=== PATIENT | female | born 1960 | race Caucasian/White ===

== ENCOUNTER → 2017-10-14 11:10 | Outpatient (CLI) | payer BC, SELFPAY ==
[2017-10-14 12:56] LABS: Vitamin B12 1260 pg/mL (211-911); Vitamin D,25 Hydroxy 29.1 ng/mL (19.95-100.01)
[2017-10-14 12:59] LABS: AST(SGOT) 27 U/L (15-37); Alanine Aminotransfer ALT/SGPT 46 U/L (13-56); Albumin, Serum 4.1 g/dL (3.2-5.0); Alkaline Phosphatase 87 U/L (45-117); Anion Gap 8 (5-15); BUN 13 mg/dL (7-18); BUN/Creat Ratio 18.4 RATIO (10-20); Calcium,Total 8.8 mg/dL (8.5-10.1); Chloride 103 mmol/L (98-107); Cholesterol 180 mg/dL (200); Creatinine, Serum 0.71 mg/dL (0.55-1.02); EST Glomerular Filtration Rate 90 mL/min (>60); Est Glom Filt Rate - Afr Amer 109 mL/min (>60); Glucose 90 mg/dL (74-106); High Density Lipoprotein 34 mg/dL; Potassium 3.5 mmol/L (3.5-5.1); Protein, Total 8.1 g/dL (6.4-8.2); Sodium Level 138 mmol/L (136-145); Thyroid Stim Hormone (TSH) 0.76 uIU/mL (0.358-3.74); Triglycerides 125 mg/dL; Very Low Density Lipoprotein 25 mg/dL (5-40)
== END ==
PROVIDERS: Family Provider Family Medicine; PCP Family Medicine; Visit Provider Family Medicine
DX: I10 Essential (primary) hypertension (principal); E55.9 Vitamin D deficiency, unspecified; E53.8 Deficiency of other specified B group vitamins
CPT/HCPCS: 36415; 80053; 80061; 82306; 82607; 84443

== ENCOUNTER → 2018-04-27 15:11 | Outpatient (CLI) | payer BC, SELFPAY ==
[2018-04-27 18:09] LABS: AST(SGOT) 55 U/L (15-37); Alanine Aminotransfer ALT/SGPT 99 U/L (13-56); Albumin, Serum 3.9 g/dL (3.2-5.0); Alkaline Phosphatase 97 U/L (45-117); Anion Gap 9 (5-15); BUN 10 mg/dL (7-18); BUN/Creat Ratio 13.9 RATIO (10-20); Calcium,Total 9.1 mg/dL (8.5-10.1); Chloride 103 mmol/L (98-107); Cholesterol 202 mg/dL (200); Creatinine, Serum 0.72 mg/dL (0.55-1.02); EST Glomerular Filtration Rate 88 mL/min (>60); Est Glom Filt Rate - Afr Amer 107 mL/min (>60); Globulin 3.9 g/dL (2.2-4.2); Glucose 89 mg/dL (74-106); High Density Lipoprotein 42 mg/dL; Potassium 3.8 mmol/L (3.5-5.1); Protein, Total 7.8 g/dL (6.4-8.2); Sodium Level 138 mmol/L (136-145); Thyroid Stim Hormone (TSH) 0.62 uIU/mL (0.358-3.74); Triglycerides 148 mg/dL; Very Low Density Lipoprotein 30 mg/dL (5-40)
[2018-04-28 12:06] LABS: Vitamin B12 898 pg/mL (211-911); Vitamin D,25 Hydroxy 28.4 ng/mL (29.95-100.01)
== END ==
PROVIDERS: Family Provider Family Medicine; PCP Family Medicine; Visit Provider Family Medicine
DX: I10 Essential (primary) hypertension (principal); E55.9 Vitamin D deficiency, unspecified; E53.8 Deficiency of other specified B group vitamins; F41.1 Generalized anxiety disorder
CPT/HCPCS: 36415; 80053; 80061; 82306; 82607; 84443

== ENCOUNTER → 2018-10-30 15:16 | Outpatient (CLI) | payer BC, SELFPAY ==
[2018-10-30 17:30] LABS: Hematocrit 40.2 % (37-47); Hemoglobin 12.7 g/dl (12.0-15.0); Mean Corp Hgb Conc 31.6 g/gl (32-36); Mean Corpuscular Hgb 27.7 pg (27.0-32.0); Mean Corpuscular Volume 87.8 fL (81-99); Mean Platelet Vol. 9.5 fl (6.2-12.0); Platelet Count 231 K/mm3 (150-450); RBC Distribution Width CV 13.6 % (11.6-14.6); RBC Distribution Width SD 43.3 fl (35.1-43.9); Red Blood Count 4.58 M/mm3 (4.2-5.4); White Blood Count 4.8 K/mm3 (4.4-11.0)
[2018-10-30 17:32] LABS: Scan Indicated on CBC? Y/N NO
[2018-10-30 17:41] LABS: Erythrocyte Sedimentation Rate 19 mm/hr (0-30)
[2018-10-30 17:49] LABS: Vitamin B12 820 pg/mL (211-911); Vitamin D,25 Hydroxy 21.4 ng/mL (29.95-100.01)
[2018-10-30 17:51] LABS: Anion Gap 6 (5-15); BUN 11 mg/dL (7-18); BUN/Creat Ratio 16.7 RATIO (10-20); Chloride 105 mmol/L (98-107); Creatinine, Serum 0.66 mg/dL (0.55-1.02); EST Glomerular Filtration Rate 98 mL/min (>60); Est Glom Filt Rate - Afr Amer 118 mL/min (>60); Glucose 84 mg/dL (74-106); Potassium 3.9 mmol/L (3.5-5.1); Sodium Level 139 mmol/L (136-145); Thyroid Stim Hormone (TSH) 0.55 uIU/mL (0.358-3.74)
[2018-11-01 16:09] LABS: Endomysial Antibody IgA Negative (Negative)
[2018-11-01 16:39] LABS: Deamidated Gliadin IgA 5 units (0-19); Deamidated Gliadin IgG 4 units (0-19); Immunoglobulin A 235 mg/dL (87-352); t-Transglutaminase IgA <2 U/mL (0-3)
== END ==
PROVIDERS: Family Provider Family Medicine; PCP Family Medicine; Visit Provider Family Medicine
DX: I10 Essential (primary) hypertension (principal); E55.9 Vitamin D deficiency, unspecified; E53.8 Deficiency of other specified B group vitamins; K58.9 Irritable bowel syndrome, unspecified
CPT/HCPCS: 36415; 80048; 82306; 82607; 82784; 83516; 84443; 85027; 85652; 86255

== ENCOUNTER → 2019-07-04 | Outpatient (CLI) | payer BC, SELFPAY ==
[2019-07-04 17:49] LABS: Absolute Lymphocyte Count 1.72 X10^3/uL (0.83-4.51); Absolute Neutrophil Count 2.9 X10^3/uL (2.0-7.7); Basophil# 0.02 X10^3/uL; Basophil% 0.4 % (0-1); Eosinophil# 0.11 X10^3/uL; Eosinophils% 2.1 % (0-5); Hematocrit 40.4 % (37-47); Hemoglobin 12.9 g/dL (12.0-15.0); Lymphocyte # 1.72 X10^3/ul (4.0); Lymphocyte % 32.8 % (19-41); Mean Corp Hgb Conc 31.9 g/dL (32-36); Mean Corpuscular Volume 87.8 fL (81-99); Mean Platelet Vol. 9.2 fl (6.2-12.0); Monocyte# 0.45 X10^3/uL; Monocyte% 8.6 % (0-10); NRBC Flagged by Analyzer 0 % (0-5); Neutrophil # 2.93 X10^3/uL (2.7-7.7); Neutrophil % 55.9 % (47-70); Platelet Count 254 K/mm3 (150-450); RBC Distribution Width SD 41.2 fl (35.1-43.9); White Blood Count 5.2 K/mm3 (4.4-11.0)
[2019-07-04 18:02] LABS: Erythrocyte Sedimentation Rate 14 mm/hr (0-30)
[2019-07-04 18:22] LABS: Vitamin B12 625 pg/mL (211-911); Vitamin D,25 Hydroxy 25.9 ng/mL (29.95-100.01)
[2019-07-04 18:39] LABS: AST(SGOT) 40 U/L (15-37); Alanine Aminotransfer ALT/SGPT 81 U/L (13-56); Albumin, Serum 3.8 g/dL (3.2-5.0); Alkaline Phosphatase 99 U/L (45-117); Anion Gap 7 (5-15); BUN 10 mg/dL (7-18); BUN/Creat Ratio 13.7 RATIO (10-20); CRP < 2.90 mg/L (0.0-3.0); Chloride 104 mmol/L (98-107); Creatinine, Serum 0.73 mg/dL (0.55-1.02); EST Glomerular Filtration Rate 87 mL/min (>60); Est Glom Filt Rate - Afr Amer 105 mL/min (>60); Ferritin 63 ng/mL (8-252); Glucose 90 mg/dL (74-106); Iron 72 ug/dL (50-170); Potassium 3.8 mmol/L (3.5-5.1); Protein, Total 7.8 g/dL (6.4-8.2); Rheumatoid Factor < 10.0 IU/mL (<15); Sodium Level 141 mmol/L (136-145); Thyroid Stim Hormone (TSH) 0.78 uIU/mL (0.358-3.74)
[2019-07-06 12:28] LABS: ANTINUCLEAR ANTIBODIES DIRECT Negative (Negative)
== END | disposition home or self-care (01) ==
LOC: MFPLAB 16:55
PROVIDERS: Family Provider Family Medicine; PCP Family Medicine; Referring Provider Family Medicine; Visit Provider Family Medicine
DX: M25.50 Pain in unspecified joint (principal); R53.83 Other fatigue; E53.8 Deficiency of other specified B group vitamins; E55.9 Vitamin D deficiency, unspecified
CPT/HCPCS: 36415; 80053; 82306; 82607; 82728; 83540; 84443; 85025; 85652; 86038; 86140; 86431

== ENCOUNTER → 2020-01-18 16:44 | Outpatient (CLI) | payer BC, SELFPAY ==
[2020-01-18 17:50] LABS: Absolute Neutrophil Count 2.7 X10^3/uL (2.0-7.7); Basophil# 0.02 X10^3/uL; Basophil% 0.4 % (0-1); Eosinophil# 0.07 X10^3/uL; Eosinophils% 1.4 % (0-5); Hemoglobin 12.5 g/dL (12.0-15.0); Lymphocyte % 35.8 % (19-41); Mean Corp Hgb Conc 31.3 g/dL (32-36); Mean Corpuscular Hgb 27.7 pg (27.0-32.0); Mean Corpuscular Volume 88.5 fL (81-99); Mean Platelet Vol. 9.5 fl (6.2-12.0); Monocyte# 0.39 X10^3/uL; Monocyte% 7.8 % (0-10); NRBC Flagged by Analyzer 0 % (0-5); Neutrophil # 2.74 X10^3/uL (2.7-7.7); Neutrophil % 54.4 % (47-70); Platelet Count 266 K/mm3 (150-450); RBC Distribution Width SD 42.5 fl (35.1-43.9); Red Blood Count 4.52 M/mm3 (4.2-5.4)
[2020-01-18 18:18] LABS: AST(SGOT) 36 U/L (15-37); Alanine Aminotransfer ALT/SGPT 74 U/L (13-56); Alkaline Phosphatase 94 U/L (45-117); Bilirubin, Direct 0.09 mg/dL (0.00-0.30)
== END ==
PROVIDERS: PCP Family Medicine; Referring Provider Family Medicine; Visit Provider Family Medicine
DX: R10.11 Right upper quadrant pain (principal)
CPT/HCPCS: 36415; 80076; 85025

== ENCOUNTER → 2020-01-23 09:58 | Outpatient (CLI) | payer BC, SELFPAY ==
--- NOTE | 2020-01-23 10:03 | US_ITS ---
STUDY: ABDOMINAL ULTRASOUND - RIGHT UPPER QUADRANT REASON FOR VISIT: Female, 59 years old RUQ PAIN X SEVERAL MONTHS W/ NAUSEA TECHNIQUE: Ultrasound evaluation of the right upper quadrant was performed with real-time and static wheeler-scale imaging. TECHNICAL QUALITY: Adequate. COMPARISON: Comparison is made with prior study dated October 29, 2015. FINDINGS: Liver: The liver measures 14.7 cm. There is increased echogenicity consistent with fatty infiltration. The bile ducts are within normal limits. There is hepatic color flow. The direction of portal flow is hepatopetal. There is no demonstrated mass lesion. Gallbladder: Normal distended gallbladder. The gallbladder wall measures 2.5 mm. There is a negative sonographic Chase''s sign. There is no pericholecystic fluid. There are no gallstones. Common Bile Duct (C.B.D.): The common bile duct measures 5.1 mm. Pancreas: Normal size of the head, body and tail of the pancreas. There is increased echogenicity of the pancreas. There is no demonstrated pancreatic mass or cyst. Right Kidney: Normal size of the right kidney. The right kidney measures 10.3 cm x 5.5 cm x 4.9 cm. Normal renal cortex. The right cortex measures 1.5 cm. There is no demonstrated renal mass or cyst. There is no right hydronephrosis. US/Abdomen Limited IMPRESSION: Fatty infiltration of the liver. Electronically Signed: Shadi Crandall, at 15:13 EDT , Service support ,
== END ==
PROVIDERS: PCP Family Medicine; Visit Provider Family Medicine
DX: R10.11 Right upper quadrant pain (principal)
CPT/HCPCS: 76705

== ENCOUNTER 2021-07-18 11:38 | Emergency (ER) | payer BC, SELFPAY ==
[2021-07-18 11:39] VITALS: BP 163/88; PULSE 87; RESP 18; TEMP 36.6; O2SAT 94; BMI 33.5
--- NOTE | 2021-07-18 12:06 | RAD_ITS ---
STUDY: X-RAY - LEFT FOOT CLINICAL: Female, 61 years old. Pain/swelling TECHNIQUE: 3 view(s) of the foot. COMPARISON: None. FINDINGS: There is a plantar calcaneal spur. Normal visualized subtalar, talonavicular, calcaneocuboid, tarsal and tarsometatarsal articulations. Normal metatarsi. Normal metatarsophalangeal joint of the great toe. Normal tibial and fibular sesamoid bones. Normal interphalangeal joint of the great toe. Normal phalanges of the great toe. Normal second through fifth metatarsophalangeal joints. Normal interphalangeal joints and phalanges of the lesser toes. The soft tissue structures are unremarkable. RAD/Foot min 3 Views IMPRESSION: Calcaneal spur. No demonstrated acute osseous changes. Electronically Signed: Amaury Ricardo, at 12:25 EST Tel , Service support ,
--- NOTE | 2021-07-18 13:11 | ED.VIS.LOWEX ---
HPI History of Present Illness Chief Complaint: Lower Extremity Injury Informant: patient Narrative Narrative: This patient's had left foot pain for about 10 days. It started in the right great toe. However it seems to be also on the side of the foot and the lateral aspect of the left ankle. There is some redness at 2 spots. But is not spreading up the leg. She has no fevers chills nausea or vomiting. No systemic symptoms. No change in diet that she knows of. She does not have a history of gout although her does. She states the pain is worse with touching it or walking. Nothing specifically makes it better. [facility] Medical History Arthritis Bone tumor HTN (hypertension) Seasonal allergies Home Medications lisinopril-hydrochlorothiazide 1 tablet PO DAILY 02/10/14 [History Last Taken Unknown] escitalopram oxalate 20 mg tablet 20 mg PO DAILY tablet 11/16/20 [History Last Taken Unknown] oxycodone-acetaminophen [Percocet] 1 tab PO Q6H PRN 3 Days #10 tab 07/18/21 [Rx Last Taken Unknown] prednisone 60 mg PO DAILY #15 tab 07/18/21 [Rx Last Taken Unknown] Allergy/AdvReac Type Severity Reaction Status Date / Time No Known Allergies Allergy Verified 07/18/21 11:40 Surgical History Hx of melanoma excision Social History Smoking Status: Never smoker alcohol intake: never ROS ROS ED Constitutional Constitutional ED: Denies chills, fever(s) or sweats ENT ENT ED: Denies rhinorrhea or sore throat Cardiovascular Cardiovascular: Denies palpitations Respiratory/Chest Respiratory/Chest: Denies cough Gastrointestinal Gastrointestinal: Denies nausea or vomiting Musculoskeletal Musculoskeletal: Reports arthralgias Integumentary Denies abscess, Abrasions or rash Neurologic Neurologic: Denies paresthesias or weakness Endocrine Endocrinology: Denies polydipsia or polyuria Hematologic/Lymphatic Hematologic/Lymphatic: Denies easy bleeding or easy bruising Allergic/Immunologic Allergic/Immunologic ED: Denies mouth swelling or urticaria EXAM Physical Exam Const Vital Signs: 07/18/21 11:39 Temperature 97.8 F Temperature Source Temporal Pulse Rate 87 Respiratory Rate 18 Blood Pressure 163/88 H Blood Pressure Mean 113 Pulse Ox 94 Oxygen Delivery Method Room Air Positive well nourished and well developed General Appearance ED: well developed and NAD HEENT normocephalic and atraumatic Resp normal respiratory effort and clear to auscultation bilaterally Cardio regular rate GI non-tender Palpation: soft Extremity Extremity Narrative: There is some erythema by the first MTP of the left foot. This area is sore to move but the other 4 toes or not. There is a spot of erythema on the lateral aspect of the foot. There is a little bit of swelling but no erythema over the lateral aspect of the ankle but not medially. No posterior ankle swelling. No calcaneus tenderness. No real pain with motion of the ankle. Neuro Sensorium / Orientation: alert Psych mental status grossly normal Skin Rashes: no rashes MDM MDM MDM Narrative Medical decision making narrative: X-ray shows arthritic changes but no sign of acute process. Patient's had 10 days of symptoms with no spread beyond the foot. There is no sign of cellulitis. There is no fevers chills nausea or vomiting. This is consistent with gout. We will treat as such. If she develops fevers chills spreading erythema etc. she should return. We will try a dose of colchicine here. We will write for some Percocet as well as steroids. Radiography Diagnostic Testing: Clinical Impression(s) from Imaging Studies Foot X-Ray 07/18/21 12:06 IMPRESSION: Calcaneal spur. No demonstrated acute osseous changes. Electronically Signed: Amaury Ricardo, at 12:25 EST Tel , Service support , Discharge Plan Triage Chief Complaint: Lower Extremity Injury ED Provider: Gigi Jenkins Dx/Rx/DC Orders Clinical Impression: Gout attack Instructions: ED Gout, ED Gout Diet Prescriptions: New oxycodone-acetaminophen [Percocet] 5-325 mg tablet 1 tab PO Q6H PRN (Reason: pain) 3 Days Qty: 10 RF: 0 prednisone 20 MG tablet 60 mg PO DAILY Qty: 15 RF: 0 No Action escitalopram oxalate 20 mg tablet 20 mg PO DAILY RF: 0 lisinopril-hydrochlorothiazide 1 TABLET tablet 1 tablet PO DAILY RF: 0 Primary Care Provider: Deep Flynn Referrals: Deep Flynn MD [Primary Care Provider] - 3-5 Days if not improving Disposition Disposition: Home, Self Care
[2021-07-18 15:03] VITALS: BP 108/77; PULSE 72; RESP 16; O2SAT 98
[2021-07-18] MEDS: Colchicine 0.6 MG TABLET 1.2 MG PO (15:03)
== END 2021-07-18 15:24 | disposition home or self-care (01) ==
PROVIDERS: Emergency Provider Emergency Medicine; PCP Family Medicine
DX: M10.9 Gout, unspecified (principal); I10 Essential (primary) hypertension; Z79.899 Other long term (current) drug therapy
CPT/HCPCS: 73630; 99283

== ENCOUNTER → 2021-07-23 13:59 | Outpatient (CLI) | payer BC, SELFPAY ==
[2021-07-23 17:56] LABS: Anion Gap 7 (5-15); BUN 19 mg/dL (7-18); BUN/Creat Ratio 23.9 RATIO (10-20); Calcium,Total 9.4 mg/dL (8.5-10.1); Chloride 100 mmol/L (98-107); Cholesterol 205 mg/dL (200); EST Glomerular Filtration Rate 78 mL/min (>60); Est Glom Filt Rate - Afr Amer 94 mL/min (>60); Glucose 75 mg/dL (74-106); High Density Lipoprotein 41 mg/dL; Potassium 3.3 mmol/L (3.5-5.1); Sodium Level 138 mmol/L (136-145); Triglycerides 188 mg/dL; Uric Acid 7.7 mg/dL (2.6-6.0); Very Low Density Lipoprotein 38 mg/dL (5-40)
== END ==
PROVIDERS: PCP Family Medicine; Referring Provider Family Medicine; Visit Provider Family Medicine
DX: I10 Essential (primary) hypertension (principal); M10.9 Gout, unspecified
CPT/HCPCS: 36415; 80048; 80061; 84550

== ENCOUNTER → 2021-08-19 | Outpatient (CLI) | payer BC, SELFPAY | END | disposition home or self-care (01) | LOC: LABSPEC 17:27 | PROVIDERS: PCP Family Medicine; Visit Provider Nurse Practitioner Family | DX: J06.9 Acute upper respiratory infection, unspecified (principal) | CPT/HCPCS: 87633; 87635; U0005; U0003 ==

== ENCOUNTER → 2022-07-22 | Outpatient (CLI) | payer SELFPAY ==
--- NOTE | 2022-07-22 14:22 | RAD_ITS ---
STUDY: X-RAY - RIGHT FOOT CLINICAL: Female, 62 years old. PAIN TECHNIQUE: 3 view(s) of the foot. COMPARISON: None. FINDINGS: Normal talus,, and tarsal bones. Small plantar calcaneal spur. Normal visualized subtalar, talonavicular, calcaneocuboid, tarsal and tarsometatarsal articulations. Normal metatarsi. Normal metatarsophalangeal joint of the great toe. Normal tibial and fibular sesamoid bones. Normal interphalangeal joint of the great toe. Normal phalanges of the great toe. Normal second through fifth metatarsophalangeal joints. Normal interphalangeal joints and phalanges of the lesser toes. The soft tissue structures are unremarkable. RAD/Foot min 3 Views IMPRESSION: No evidence for acute fracture or other significant bony pathology.. Electronically Signed: Tyree Horowitz MD at 20:02 EST ,
[2022-07-22 15:40] LABS: Absolute Lymphocyte Count 1.71 X10^3/uL (0.83-4.51); Absolute Neutrophil Count 3.5 X10^3/uL (2.0-7.7); Basophil# 0.02 X10^3/uL; Basophil% 0.4 % (0-1); Eosinophils% 1.8 % (0-5); Hematocrit 41.6 % (37-47); Hemoglobin 13.2 g/dL (12.0-15.0); Lymphocyte # 1.71 X10^3/ul (0.83-4.51); Lymphocyte % 30.1 % (19-41); Mean Corp Hgb Conc 31.7 g/dL (32-36); Mean Corpuscular Hgb 27.8 pg (27.0-32.0); Mean Corpuscular Volume 87.6 fL (81-99); Mean Platelet Vol. 9.3 fl (6.2-12.0); Monocyte# 0.37 X10^3/uL; Monocyte% 6.5 % (0-10); NRBC Flagged by Analyzer 0.4 % (0-5); Neutrophil # 3.45 X10^3/uL (2.7-7.7); Neutrophil % 60.7 % (47-70); Platelet Count 270 K/mm3 (150-450); RBC Distribution Width CV 13.2 % (11.6-14.6); RBC Distribution Width SD 42.4 fl (35.1-43.9); Red Blood Count 4.75 M/mm3 (4.2-5.4); White Blood Count 5.7 K/mm3 (4.4-11.0)
[2022-07-22 15:53] LABS: Erythrocyte Sedimentation Rate 28 mm/hr (0-30)
[2022-07-22 16:17] LABS: Vitamin D,25 Hydroxy 21.9 ng/mL
[2022-07-22 16:27] LABS: Anion Gap 8 (5-15); BUN 10 mg/dL (7-18); BUN/Creat Ratio 13.2 RATIO (10-20); Calcium,Total 9.1 mg/dL (8.5-10.1); Chloride 103 mmol/L (98-107); Creatinine, Serum 0.76 mg/dL (0.55-1.02); EST Glomerular Filtration Rate 82 mL/min (>60); Est Glom Filt Rate - Afr Amer 100 mL/min (>60); Glucose 89 mg/dL (74-106); Potassium 4.3 mmol/L (3.5-5.1); Sodium Level 141 mmol/L (136-145); Thyroid Stim Hormone (TSH) 0.79 uIU/mL (0.358-3.74); Uric Acid 7.1 mg/dL (2.6-6.0)
== END | disposition home or self-care (01) ==
PROVIDERS: PCP Family Medicine; Referring Provider Family Medicine; Visit Provider Family Medicine
DX: E55.9 Vitamin D deficiency, unspecified (principal); R40.0 Somnolence; M79.671 Pain in right foot
CPT/HCPCS: 36415; 73630; 80048; 82306; 84443; 84550; 85025; 85652

== ENCOUNTER → 2023-02-14 | Outpatient (CLI) | payer OTHER, SELFPAY ==
[2023-02-14 18:10] LABS: Color, Urine Yellow (Yellow); Glucose, Dipstick Normal (Normal); Ketone-Dipstick Negative (Negative); Leukocyte Esterase-Dipstick 500 /ul (Negative); Nitrite-Dipstick Negative (Negative); Occult Blood-Urine 50 /ul (Negative); Protein-Dipstick 15 mg/dl (Negative); Urine Bilirubin Dipstick Negative (Negative); Urine Clarity Sl. Cloudy (Clear); Urine Urobilinogen Normal (Normal)
[2023-02-14 18:30] LABS: White Blood Cells 25-50 SEEN /hpf (0-5)
[2023-02-14 18:31] LABS: Bacteria 1+ /hpf (None Seen); Mucous, Urine RARE /hpf (<or=2+); Red Blood Cells-Urine 0-5 SEEN /hpf (0-5); Squamous Epithelial Cells - UA 0-5 SEEN /hpf (5-10)
[2023-02-14 18:52] LABS: Anion Gap 5 (5-15); BUN 9 mg/dL (7-18); BUN/Creat Ratio 11.8 RATIO (10-20); Calcium,Total 9.1 mg/dL (8.5-10.1); Chloride 107 mmol/L (98-107); Cholesterol 192 mg/dL (200); Creatinine, Serum 0.76 mg/dL (0.55-1.02); EST Glomerular Filtration Rate 81 mL/min (>60); Est Glom Filt Rate - Afr Amer 99 mL/min (>60); Glucose 88 mg/dL (74-106); High Density Lipoprotein 40 mg/dL; Sodium Level 141 mmol/L (136-145); Triglycerides 121 mg/dL; Uric Acid 8.5 mg/dL (2.6-6.0); Very Low Density Lipoprotein 24 mg/dL (5-40)
== END | disposition home or self-care (01) ==
LOC: MFPLAB 16:04
PROVIDERS: PCP Family Medicine; Visit Provider Family Medicine
DX: I10 Essential (primary) hypertension (principal); E55.9 Vitamin D deficiency, unspecified
CPT/HCPCS: 36415; 80048; 80061; 81001; 82306; 84550

== ENCOUNTER → 2023-09-29 | Outpatient (CLI) | payer OTHER, SELFPAY ==
--- NOTE | 2023-09-29 12:45 | US_ITS ---
INDICATION: Postmenopausal bleeding EXAMINATION: Ultrasound US Pelvis Non OB Complete With Transvaginal Imaging TECHNIQUE: Transabdominal and transvaginal pelvic ultrasound was performed. Grayscale, spectral waveform, and color flow Doppler evaluation of the adnexa. COMPARISON: No relevant prior comparison study available FINDINGS: UTERUS: Anteverted. The uterus measures 9.1 x 5.3 x 4.2 cm. There is a mass in the posterior wall of the uterus measuring about 2.2 x 2.2 x 2.2 cm consistent with small uterine fibroid. The endometrial stripe measures 18 mm in AP diameter which is abnormally thickened for postmenopausal patient. Nabothian cyst seen in the cervix. RIGHT OVARY: The right ovary is not visualized. LEFT OVARY: Left ovary measures 2.6 x 1.2 x 0.8 cm. Non-enlarged, normal echogenicity. There is normal arterial inflow and venous outflow present in the left ovary. FREE FLUID: None. US/Pelvic w/ Transvaginal IMPRESSION: 1. Abnormally thickened heterogeneous endometrium for postmenopausal bleeding patient. Endometrial abnormality cannot be excluded. INTEGRATION ARCHITECT consult is recommended. 2. Nonvisualization of the right ovary. 3. Small nabothian cyst in the cervix. Electronically Signed: Amaury Ricardo MD at 15:07 EST ,
== END | disposition home or self-care (01) ==
LOC: US 12:40
PROVIDERS: PCP Family Medicine; Referring Provider Family Medicine; Visit Provider Family Medicine
DX: N93.8 Other specified abnormal uterine and vaginal bleeding (principal)
CPT/HCPCS: 76830; 76856

== ENCOUNTER → 2023-10-31 | Outpatient (CLI) | payer OTHER, SELFPAY ==
[2023-11-03 13:08] LABS: HPV APTIMA, High Risk Negative (Negative)
== END | disposition home or self-care (01) ==
LOC: LABSPEC 15:41
PROVIDERS: PCP Family Medicine; Referring Provider Obstetrics & Gynecology; Visit Provider Obstetrics & Gynecology
DX: Z12.4 Encounter for screening for malignant neoplasm of cervix (principal)
CPT/HCPCS: 87624; 88175; G0145

== ENCOUNTER → 2023-11-09 | Outpatient (CLI) | payer OTHER, SELFPAY ==
--- NOTE | 2023-11-09 13:39 | BI_ITS ---
MAMMOGRAPHY - BILATERAL SCREENING REASON FOR EXAM: Female, 63 years old. Routine annual screening examination. PERTINENT HISTORY: Non-contributory. TECHNIQUE: Digital bilateral breast meera (3D mammographic acquisition) in the CC and MLO projections. 2-D mediolateral oblique (MLO) and craniocaudad (CC) views of both breasts were obtained. CAD: Full Field Digital Mammography with Computer Added Detection was performed. COMPARISON: None. Baseline examination. FINDINGS: Breast Composition: There are scattered areas of fibroglandular density. There are no dominant masses or suspicious calcifications. No other significant abnormalities are identified. BI/SCRN MAMM (CAD)W/MEERA BILAT IMPRESSION: Negative screening mammogram. Yearly followup mammogram recommended. (A) ASSESSMENT CATEGORY: BIRADS Category 1: Negative. A letter regarding these results will be sent to the patient by the facility within 30 days. Approximately 10% of breast cancers are not detected by mammography. A normal mammogram should not delay biopsy of a clinically suspicious abnormality. [id number] Electronically Signed: Shadi Crandall MD at 14:46 EDT ,
== END | disposition home or self-care (01) ==
LOC: OPBI 13:39
PROVIDERS: PCP Family Medicine; Referring Provider Obstetrics & Gynecology; Visit Provider Obstetrics & Gynecology
DX: Z12.31 Encounter for screening mammogram for malignant neoplasm of breast (principal)
CPT/HCPCS: 77063; 77067

== ENCOUNTER → 2023-12-20 | Outpatient (CLI) | payer OTHER, SELFPAY ==
[2023-12-20 14:02] LABS: Vitamin D,25 Hydroxy 28.5 ng/mL
[2023-12-20 14:07] LABS: ALB/GLOB Ratio 1.1 RATIO (0.9-2.4); AST(SGOT) 40 U/L (15-37); Alanine Aminotransfer ALT/SGPT 69 U/L (13-56); Alkaline Phosphatase 74 U/L (45-117); Anion Gap 4 (5-15); BUN 9 mg/dL (7-18); BUN/Creat Ratio 11.7 RATIO (10-20); Chloride 106 mmol/L (98-107); Cholesterol 206 mg/dL (200); Creatinine, Serum 0.77 mg/dL (0.55-1.02); EST Glomerular Filtration Rate 80 mL/min (>60); Est Glom Filt Rate - Afr Amer 97 mL/min (>60); Globulin 3.7 g/dL (2.2-4.2); Glucose 99 mg/dL (74-106); High Density Lipoprotein 41 mg/dL; Potassium 3.9 mmol/L (3.5-5.1); Protein, Total 7.7 g/dL (6.4-8.2); Sodium Level 139 mmol/L (136-145); Thyroid Stim Hormone (TSH) 1.28 uIU/mL (0.358-3.74); Triglycerides 134 mg/dL; Uric Acid 8.4 mg/dL (2.6-6.0); Very Low Density Lipoprotein 27 mg/dL (5-40)
== END | disposition home or self-care (01) ==
LOC: LAB 12:27
PROVIDERS: PCP Family Medicine; Referring Provider Family Medicine; Visit Provider Family Medicine
DX: M10.9 Gout, unspecified (principal); E55.9 Vitamin D deficiency, unspecified; I10 Essential (primary) hypertension; Z13.29 Encounter for screening for other suspected endocrine disorder
CPT/HCPCS: 36415; 80053; 80061; 82306; 84443; 84550

== ENCOUNTER 2024-01-03 08:09 | Day surgery (SDC) | payer OTHER, SELFPAY ==
[2023-12-20 13:35] LABS: Absolute Lymphocyte Count 2.34 X10^3/uL (0.83-4.51); Absolute Neutrophil Count 2.4 X10^3/uL (2.0-7.7); Basophil# 0.02 X10^3/uL; Basophil% 0.4 % (0-1); Eosinophil# 0.08 X10^3/uL; Eosinophils% 1.5 % (0-5); Hematocrit 40.8 % (37-47); Hemoglobin 13.4 g/dL (12.0-15.0); Lymphocyte # 2.34 X10^3/ul (0.83-4.51); Lymphocyte % 45.1 % (19-41); Mean Corp Hgb Conc 32.8 g/dL (32-36); Mean Corpuscular Volume 85.4 fL (81-99); Mean Platelet Vol. 9.6 fl (6.2-12.0); Monocyte# 0.33 X10^3/uL; Monocyte% 6.4 % (0-10); NRBC Flagged by Analyzer 0 % (0-5); Neutrophil # 2.41 X10^3/uL (2.7-7.7); Neutrophil % 46.4 % (47-70); Platelet Count 243 K/mm3 (150-450); RBC Distribution Width CV 13.2 % (11.6-14.6); RBC Distribution Width SD 41.1 fl (35.1-43.9); Red Blood Count 4.78 M/mm3 (4.2-5.4); White Blood Count 5.2 K/mm3 (4.4-11.0)
[2024-01-03] VITALS (10 sets, daily range): BP systolic 118–158; BP diastolic 68–92; PULSE 68–74; RESP 16; TEMP 36.1–37.2; O2SAT 91–95; BMI 35.1
--- NOTE | 2024-01-03 | EMB_PTH ---
PATIENT: SHEBA GAO LOC: [facility] [place] U#:[id number] AGE/SX: 63/F ROOM: RE01/03/[address]: Dr. Shanique Rachel DO : 1960 BED: DIS: 01/03/2024 SPEC #: [id number] RECD: 01/03/24 13:15 STATUS: YRN REMarion #: [id number] TIFFANIE: 01/03/24 00:[address]: Shanique Rachel DEPT: SURGICAL PATHOLOGY RECD BY: [place] ENTERED: 01/03/24 13:15 SP TYPE: ENDOM BX/C OTHR DR: Dr. Ladarius Flynn MD Tissues: Endometrium, NOS Procedures: Surgery Specimen Level IV HEADER OPERATION: Hysteroscopy, D&C PRE-OP DIAGNOSIS: Thickened endometrium, postmenopausal bleeding TISSUE SUBMITTED: Endometrial Curettings MICROSCOPIC DIAGNOSIS Endometrial curettings: Endometrial adenocarcinoma, endometroid type with focal squamous differentiation, FIGO grade II. See comment. / 01/04/2024 COMMENT Immunohistochemistry ([id number]) for microsatellite instability will be performed and results will be reported separately. Case has been reviewed in consultation with Dr. Bradford who concurs with the above diagnosis. IDC:AM MICROSCOPIC DESCRIPTION Slides are reviewed. GROSS DESCRIPTION Received in fixative is one container labeled with the patient's name and designated Endometrial curettings. The specimen consists of multiple fragments of hemorrhagic soft tissue in aggregate 7.5 x 3.0 x 1.0cm. The entire specimen is submitted in eight cassettes. / 01/03/24 TC:0 CPT:52570
[2024-01-03] MEDS: Lactated Ringers 1,000 ML 15 ML IV (08:54)
--- NOTE | 2024-01-03 09:34 | PCM.HP.BLA ---
History and Physical Date of Admission: 01/03/24 Intake Vital Signs 10/30/2413:04 12/19/2410:30 12/19/2410:32 Height 5 ft 3 in 5 ft 3 in 5 ft 3 in Weight: 199 lb 4 oz BMI 35.3 BP 157/84 H Intake Visit Reasons: d&c Cardiac Cath Technician Required: No Is patient in pain?: No Allergies No Known Allergies Allergy (Verified 12/20/23 11:30) Medications escitalopram oxalate 20 mg tablet 20 mg PO DAILY 11/16/20 [History Confirmed 12/20/23] cholecalciferol (vitamin D3) 50 mcg (2,000 unit) capsule 50 mcg PO DAILY 10/31/23 [History Confirmed 12/20/23] lisinopril 40 mg tablet 40 mg PO DAILY 10/31/23 [History Confirmed 12/20/23] Is last menstrual period known: No Post menopausal: No Patient : No : No PFSH Medical History Arthritis Basal cell carcinoma Bone tumor Depression with anxiety HTN (hypertension) Melanoma Seasonal allergies Squamous cell carcinoma Vitamin D deficiency Surgical History H/O squamous cell carcinoma excision Hx of melanoma excision S/P laparotomy S/P tubal ligation Social History Smoking Status: Never smoker alcohol intake: never substance use type: does not use caffeine: Yes what type of physical activity do you participate in: none seatbelt use: always do you feel safe at home: Yes additional social history: - [facility] d&c Details: SHEBA GAO is a 63 year old who presents for postmenopausal bleeding and pre-op exam. She has been menopausal for 10 years and for the last year she has had on and off spotting red and brown blood. She admits that she has not had a pap or pelvic exam for several years and also has not gone for a mammogram in several years either. Ultrasound shows the following: FINDINGS: UTERUS: Anteverted. The uterus measures 9.1 x 5.3 x 4.2 cm. There is a mass in the posterior wall of the uterus measuring about 2.2 x 2.2 x 2.2 cm consistent with small uterine fibroid. The endometrial stripe measures 18 mm in AP diameter which is abnormally thickened for postmenopausal patient. Nabothian cyst seen in the cervix. RIGHT OVARY: The right ovary is not visualized. LEFT OVARY: Left ovary measures 2.6 x 1.2 x 0.8 cm. Non-enlarged, normal echogenicity. There is normal arterial inflow and venous outflow present in the left ovary. FREE FLUID: None. History 5 Elective abortions Hx Para 3 Spontaneous abortions Hx # Term Pregnancies Ectopic pregnancies Hx # Pregnancies Multiple births # of living children Past Pregnancies Del. Date Name GA/Weeks Outcome Route Bth Weight Infant Gen Labor Lgth Anesthesia Del [facility] Provider FOB Unknown Lisset Unknown Hsilpa Unknown Kaitline ROS Const ROS Unobtainable: All systems reviewed & are unremarkable except as noted in H Resp Resp: Reports system reviewed and no additional complaints, except as documented; Denies cough GI GI: Reports as per HPI Psych Psych: Reports system reviewed and no additional complaints, except as documented Exam Const General: cooperative, healthy appearing, comfortable and no acute distress Resp Effort & Inspection: normal respiratory effort Skin General: no rashes or lesions noted Psych Appearance: grossly normal Speech and Movement: speech and movement normal Coding Level of Care Code Off vis,est,level 4 Diagnoses Thickened endometrium R93.89 Postmenopausal bleeding N95.0 Assessment and Plan Assessment and Plan (1) Thickened endometrium: Status: Acute (2) Postmenopausal bleeding: Status: Acute Plan: After discussing the patient's diagnosis and treatment plan options, patient wishes to proceed with surgical management. I have discussed with the patient the risks, benefits, and alternatives of the procedure which include but are not limited to risks of anesthesia, bleeding, infection, possible damage to bowel, bladder, or surrounding vasculature which could lead to additional surgery to evaluate any complications. Patient agrees to procedure and wishes to proceed. ACOG/uptodate references given for additional information regarding procedure. plan for hysteroscopy dilation and curettage Orders: Orders CBC W/Diff, Automated Today N95.0 - Postmenopausal bleeding, R93.89 - Abnormal findings on diagnostic imaging of other specified body structures
--- NOTE | 2024-01-03 09:41 | PCM.DC ---
Discharge Instructions Diet Discharge Diet: No restrictions Activity Discharge Activity: Return to Normal Activity, May Shower and May Take a Tub Bath (after 1 week) May resume sexual activity in: 1-2 weeks Weight Bearing Status: Weight bearing as tolerated Lifting Restrictions: none Dressing / Incision Call your doctor if you observe: Fever of 101 or Higher, Using more than 1 pad per hour, Shortness of breath and Uncontrolled pain Follow Up Care Please Follow Up With: Shanique Rachel DO When: Call [phone] to schedule appointment. Test Results: Test results from this visit will be discussed in further detail at your follow-up appointment, if applicable. Discharge Plan Admission Primary Reason for Your Visit: dilation and curettage Attending Provider: Shanique Rachel Primary Care Provider: Ladarius Flynn Instructions Print Language: Mongolian Discharge Orders/Prescriptions Prescriptions: New naproxen 500 mg tablet 500 mg PO BID PRN (Reason: pain) Qty: 20 0RF Continued escitalopram oxalate 20 mg tablet 20 mg PO QHS lisinopril 40 mg tablet 40 mg PO QHS cholecalciferol (vitamin D3) 50 mcg (2,000 unit) capsule 50 mcg PO DAILY Referrals / Follow Up: Ladarius Flynn MD [Primary Care Provider] - Disposition Disposition (needs filled in before D/C Order can be placed): Home, Self Care
--- NOTE | 2024-01-03 09:45 | IMM_PTH ---
PATIENT: SHEBA GAO LOC: [facility] [place] U#:[id number] AGE/SX: 63/F ROOM: RE01/03/[address]: Dr. Shanique Rachel DO : 1960 BED: DIS: 01/03/2024 SPEC #: [id number] RECD: 01/04/24 11:43 STATUS: YRN REQ #: [id number] TIFFANIE: 01/03/24 09:[address]: Shanique Rachel DEPT: IMMUNOHISTOCHEMISTRY RECD BY: Gilbert Tavarez ENTERED: 01/04/24 11:44 SP TYPE: IMMUNO OTHR DR: Dr. Ladarius Flynn MD Tissues: Endometrium, NOS Procedures: MSH2 (add) MLH-1 (add) MSH6 (add) Anti-PMS2 (add) KI-67 (add) P53 (add) HER-2-FLORIDALMA (initial) PHYSICIAN [facility] INSTIT[facility] [address] [address] SPECIMEN INFORMATION: Tissue Source: Endometrial curettings Clinical Info: Thickened endometrium, postmenopausal bleeding Specimen Number: [id number] CPT code: 96046,[id number] METHODOLOGY: Deparaffinized sections of prefer/formalin-fixed tissue or PAP/DQ stained slides are incubated with monoclonal/polyclonal antibodies/oligonucleotide probes. Localization is made via biotin free immunoperoxidase method. Appropriate controls are performed and reacted as expected. Results on target cell population are indicated in the following table: RESULTS: ANTIBODY / CLONE RESULT Block 7 Her-2neu (CB11) negative (1+, focal) MLH1 (M1) positive MSH2 (25D12) positive MSH6 (44) positive PMS2 ([id number]) positive P53 (DO-7) positive, focal (wild type pattern) Ki-67 (30-9) positive, high These tests were developed and their performance characteristics determined by [facility]. They may not have been cleared or approved by the U.S. Food and Drug Administration. The FDA has determined that such clearance or approval is not necessary. The above immunohistochemical/dualISH markers are ordered and reviewed by the Pathologist. INTERPRETATION: Endometrial curettings: Endometrial adenocarcinoma. Negative (no loss of mismatch protein; no microsatellite instability detected). CAMERON/ 01/05/2024
[2024-01-03] MEDS: Lidocaine 1% (20 ml mdv) 20 ML Vial (10:04)
--- NOTE | 2024-01-03 10:14 | OP.PCM_ITS ---
Problems Associated Problem List Diagnoses (1) Thickened endometrium: (2) Postmenopausal bleeding: Report of Operation Date of Procedure: 01/03/24 Pre-Operative Diagnosis: thickened endometrium and postmenopausal bleeding Post-Operative Diagnosis: thickened endometrium and postmenopausal bleeding Surgery/Procedure Performed:: hysteroscopy dilation and curettage Description of Surgical Findings:: thick tissue in endometrium Surgeon: Shanique Rachel corporate technical recruiter: None Type of Anesthesia: Local and MAC Specimen's removed: endometrial curetting's Drains: none Estimated Blood Loss (mL): 20cc Fluids Replaced: 500cc Description of Procedure: Patient was prepped and draped in a normal sterile fashion under MAC anesthesia. A weighted speculum was placed in the vagina and the anterior lip of the cervix was grasped with a single-tooth tenaculum. A paracervical block was placed with 1% lidocaine. Cervix was progressively dilated to allow passage of a 5 mm hyste roscope. The lining was fully visualized and noted to have thick irregular appearing tissue and a possible polyp . Uterine sounded to 7 cm. Curettage was performed and a large amount of tissue was removed and sent to pathology. All instruments were removed from the vagina and excellent hemostasis was noted. Patient was awoken and taken to recovery in stable condition. Procedure Start Time: 10:04 Procedure Stop Time: 10:12 Complications none Admit VTE Documentation VTE Present on Admission: No VTE Mechan Device Prophylaxis: SCD's VTE Pharm Prophylaxis ordered?: No Multi Select Codes Urinary/Genital Urinary/Genital CPT Codes: 89638 Hysteroscopy,EMC, Polypectomy
== END 2024-01-03 11:55 | disposition home or self-care (01) ==
LOC: SDC 08:15 → AC 08:25
PROVIDERS: PCP Family Medicine; Referring Provider Obstetrics & Gynecology; Visit Provider Obstetrics & Gynecology
PROC: 0UDB8ZZ Extraction of Endometrium, Via Natural or Artificial Opening Endoscopic (ICD-10-PCS; CPT 58558; principal; 2024-01-03 09:35)
DX: C54.1 Malignant neoplasm of endometrium (principal); N95.0 Postmenopausal bleeding; Z78.0 Asymptomatic menopausal state; I10 Essential (primary) hypertension; F41.8 Other specified anxiety disorders; Z79.899 Other long term (current) drug therapy
CPT/HCPCS: 58558; 00952; 36415; 85025; 86850; 86900; 86901; 88305; 88341; 88342; 93005; J7120; J2405

== ENCOUNTER → 2024-05-21 | Outpatient (CLI) | payer OTHER, SELFPAY ==
[2024-05-21 18:00] LABS: Vitamin B12 333 pg/mL (211-911); Vitamin D,25 Hydroxy 30.4 ng/mL
[2024-05-21 18:07] LABS: AST(SGOT) 41 U/L (15-37); Alanine Aminotransfer ALT/SGPT 61 U/L (13-56); Albumin, Serum 3.9 g/dL (3.2-5.0); Alkaline Phosphatase 97 U/L (45-117); Anion Gap 6 (5-15); BUN 8 mg/dL (7-18); BUN/Creat Ratio 11.3 RATIO (10-20); Calcium,Total 9.3 mg/dL (8.5-10.1); Chloride 106 mmol/L (98-107); EST Glomerular Filtration Rate 89 mL/min (>60); Est Glom Filt Rate - Afr Amer 107 mL/min (>60); Globulin 3.8 g/dL (2.2-4.2); Glucose 91 mg/dL (74-106); Potassium 3.8 mmol/L (3.5-5.1); Protein, Total 7.7 g/dL (6.4-8.2); Sodium Level 139 mmol/L (136-145); Thyroid Stim Hormone (TSH) 0.461 uIU/mL (0.358-3.740); Uric Acid 7.4 mg/dL (2.6-6.0)
[2024-05-21 18:27] LABS: Absolute Lymphocyte Count 2.22 X10^3/uL (0.83-4.51); Absolute Neutrophil Count 2.8 X10^3/uL (2.0-7.7); Basophil# 0.02 X10^3/uL; Basophil% 0.4 % (0-1); Eosinophil# 0.09 X10^3/uL; Eosinophils% 1.6 % (0-5); Hematocrit 38.5 % (37-47); Hemoglobin 12.5 g/dL (12.0-15.0); Lymphocyte # 2.22 X10^3/ul (0.83-4.51); Lymphocyte % 40.6 % (19-41); Mean Corp Hgb Conc 32.5 g/dL (32-36); Mean Corpuscular Hgb 27.5 pg (27.0-32.0); Mean Corpuscular Volume 84.8 fL (81-99); Mean Platelet Vol. 9.5 fl (6.2-12.0); Monocyte# 0.36 X10^3/uL; Monocyte% 6.6 % (0-10); NRBC Flagged by Analyzer 0 % (0-5); Neutrophil # 2.77 X10^3/uL (2.7-7.7); Neutrophil % 50.6 % (47-70); Platelet Count 229 K/mm3 (150-450); RBC Distribution Width SD 39.8 fl (35.1-43.9); Red Blood Count 4.54 M/mm3 (4.2-5.4); White Blood Count 5.5 K/mm3 (4.4-11.0)
[2024-05-21 18:33] LABS: Erythrocyte Sedimentation Rate 14 mm/hr (0-30)
== END | disposition home or self-care (01) ==
LOC: MFPLAB 16:35
PROVIDERS: PCP Family Medicine; Visit Provider Family Medicine
DX: R53.83 Other fatigue (principal); M10.9 Gout, unspecified; E53.8 Deficiency of other specified B group vitamins
CPT/HCPCS: 36415; 80053; 82306; 82607; 84443; 84550; 85025; 85652

== ENCOUNTER → 2024-10-16 | Outpatient (CLI) | payer OTHER, SELFPAY ==
[2024-10-17 11:22] LABS: Vitamin B12 431 pg/mL (180-914); Vitamin D,25 Hydroxy 21.6 ng/mL (30-100)
== END | disposition home or self-care (01) ==
PROVIDERS: PCP Family Medicine; Referring Provider Family Medicine; Visit Provider Family Medicine
DX: E53.8 Deficiency of other specified B group vitamins (principal); E55.9 Vitamin D deficiency, unspecified
CPT/HCPCS: 36415; 82306; 82607

== ENCOUNTER 2024-10-23 16:52 | Emergency (ER) | payer OTHER, SELFPAY ==
[2024-10-23 16:53] VITALS: BP 184/89; PULSE 91; RESP 15; TEMP 36.4; O2SAT 98; BMI 36.1
--- NOTE | 2024-10-23 16:59 | EKG12_ITS ---
Test Reason : NECK/CHEST PAIN Blood Pressure : */* mmHG Vent. Rate : 80 BPM Atrial Rate : 80 BPM P-R Int : 162 ms QRS Dur : 72 ms QT Int : 368 ms P-R-T Axes : 19 -5 18 degrees QTcB Int : 424 ms Normal sinus rhythm Nonspecific ST and T wave abnormality Abnormal ECG Confirmed by Rayray Olsen ([id number]), managing editor HARRISON PENN ([id number]) on 10/25/2024 6:56:35 AM Referred By: Confirmed By: Rayray Olsen
--- NOTE | 2024-10-23 17:12 | RAD_ITS ---
PROCEDURE: WRIST MIN 3 VIEWS REASON FOR EXAM: Swelling TECHNIQUE: Three views of the left wrist were obtained. COMPARISON: None. FINDINGS: No visible fracture. No suspicious bone lesion. Normal alignment. Soft tissues are unremarkable. RAD/Wrist min 3 Views IMPRESSION: No acute fracture or dislocation. Reading Location: [facility]
--- NOTE | 2024-10-23 17:15 | RAD_ITS ---
PROCEDURE: CHEST PA AND LATERAL REASON FOR EXAM: Chest pain TECHNIQUE: PA and lateral views of the chest. COMPARISON: None. FINDINGS: Heart: Unremarkable. Mediastinum: Unremarkable. Lungs/pleura: Hypoinflation with vascular crowding. No convincing focal consolidation. No effusion or visible pneumothorax. Likely calcified granuloma on the left. Bones: Multilevel spondylosis. Lines and support devices: None. RAD/Chest PA and Lateral IMPRESSION: 1. No visible acute cardiopulmonary findings. 2. Additional description as above. Reading Location: [id number]
[2024-10-23 17:22] LABS: Absolute Neutrophil Count 7.8 X10^3/uL (2.0-7.7); Basophil# 0.03 X10^3/uL; Basophil% 0.3 % (0-1); Eosinophil# 0.02 X10^3/uL; Eosinophils% 0.2 % (0-5); Hematocrit 39.7 % (37-47); Hemoglobin 13.1 g/dL (12.0-15.0); Lymphocyte % 14.1 % (19-41); Mean Corpuscular Hgb 28.2 pg (27.0-32.0); Mean Corpuscular Volume 85.6 fL (81-99); Mean Platelet Vol. 9.3 fl (6.2-12.0); Monocyte# 0.62 X10^3/uL; Monocyte% 6.3 % (0-10); NRBC Flagged by Analyzer 0 % (0-5); Neutrophil # 7.79 X10^3/uL (2.7-7.7); Neutrophil % 78.7 % (47-70); Platelet Count 244 K/mm3 (150-450); RBC Distribution Width CV 13.3 % (11.6-14.6); RBC Distribution Width SD 41.5 fl (35.1-43.9); Red Blood Count 4.64 M/mm3 (4.2-5.4); White Blood Count 9.9 K/mm3 (4.4-11.0)
[2024-10-23 17:51] LABS: Troponin T High Sensitivity < 6 ng/L (<=14)
--- NOTE | 2024-10-23 18:09 | EX.ED.DYSGE1 ---
HPI History of Present Illness Chief Complaint: General Illness Informant: patient Onset/Context/Timing Onset: Yesterday Context: Gradual Onset Timing: Continuous Quality: Burning Location: Upper abdomen Worsened by: Nothing Relieved by: Tums helped somewhat Narrative Narrative: Patient presents with abdominal pain that began yesterday. Patient states it is gradually gotten worse. Patient describes it as burning. Patient states it is mainly over the upper abdomen. Patient states that she has been taking Tums which has been helping somewhat. Patient states nothing makes it worse. Patient also complains of pain in her left wrist and left hand which has been getting worse over the last 5 days. Patient denies any redness over the area. Patient denies any fevers or chills. Patient admits to some nausea but denies any vomiting. Patient also admits to some urinary frequency but denies any dysuria or hematuria. PFSH PFS Medical History Loss of hearing Wears glasses Post-menopausal Back pain Heartburn Non-smoker Leg cramps History of edema History of stress test Squamous cell carcinoma Basal cell carcinoma Melanoma Vitamin D deficiency Depression with anxiety Bone tumor Arthritis HTN (hypertension) Seasonal allergies Home Medications ?Medication ?Instructions ?Recorded ?Last Taken ?Type escitalopram oxalate 20 mg tablet 20 mg PO QHS 11/16/20 Unknown History lisinopril 40 mg tablet 40 mg PO QHS 10/31/23 Unknown History naproxen 500 mg tablet 500 mg PO BID PRN pain #20 tabs 01/03/24 Unknown Rx amlodipine 5 mg tablet 5 mg PO DAILY 10/23/24 Unknown History cholecalciferol (vitamin D3) 125 125 mcg PO DAILY 10/23/24 Unknown History mcg (5,000 unit) tablet (Vitamin D3) omeprazole 20 mg capsule,delayed 20 mg PO DAILY #30 CAPSULES 10/23/24 Unknown Rx release Allergy/AdvReac Type Severity Reaction Status Date / Time bupropion AdvReac Mild OTHER Verified 10/23/24 16:53 Surgical History S/P D&C (status post dilation and curettage) H/O squamous cell carcinoma excision S/P laparotomy S/P tubal ligation Hx of melanoma excision Social History Smoking Status: Never smoker alcohol intake: never substance use type: does not use caffeine: Yes what type of physical activity do you participate in: none seatbelt use: always do you feel safe at home: Yes additional social history: - Gene ROS ROS ED Constitutional Constitutional ED: Denies chills or fever(s) Eyes Eyes: Denies blurry vision or change in vision ENT ENT ED: Denies rhinorrhea or sore throat Cardiovascular Cardiovascular: Reports chest pain; Denies palpitations Respiratory/Chest Respiratory/Chest: Denies cough or dyspnea Gastrointestinal Gastrointestinal: Reports abdominal pain and nausea; Denies vomiting Genitourinary Genitourinary ED: Reports urinary frequency; Denies dysuria or hematuria Musculoskeletal Musculoskeletal: Reports neck pain; Denies back pain Integumentary Denies abscess or rash Neurologic Neurologic: Reports headache(s); Denies weakness Allergic/Immunologic Allergic/Immunologic ED: Denies mouth swelling or urticaria EXAM Physical Exam Const Vital Signs: 10/23/24 16:53 10/23/24 18:11 10/23/24 18:41 Temperature 97.6 F L Temperature Source Temporal Pulse Rate 91 Respiratory Rate 15 Respiratory Effort Normal Respiratory Pattern Normal Blood Pressure 184/89 H Blood Pressure Mean 120 Pulse Ox 98 Oxygen Delivery Method Room Air Room Air 10/23/24 19:09 10/23/24 21:00 Temperature Temperature Source Pulse Rate 66 72 Respiratory Rate 12 13 Respiratory Effort Respiratory Pattern Blood Pressure 139/68 H 157/80 H Blood Pressure Mean 91 105 Pulse Ox 95 95 Oxygen Delivery Method Room Air Room Air Positive well nourished and well developed General Appearance ED: well developed and NAD HEENT Reports moist mucous membranes Neck supple and no JVD Resp normal respiratory effort and clear to auscultation bilaterally Cardio regular rate and regular rhythm GI non-distended Palpation: soft and tender epigastric; Negative for guarding or rebound tenderness present Neuro oriented x3, CN's II-XII intact bilaterally and no sensory deficits noted Sensorium / Orientation: alert Motor Exam: strength 5/5 throughout Psych mental status grossly normal MDM MDM MDM Narrative Medical decision making narrative: Differential diagnosis includes gastroesophageal reflux disease, gastritis, pancreatitis, cardiac dysrhythmia, cardiac ischemia, colitis, urinary tract infection, gout, arthritis, and electrolyte abnormality. EKG will be obtained to assess for cardiac dysrhythmia and cardiac ischemia. Chest x-ray will be obtained to assess for pneumonia and bronchitis. CBC will be obtained to assess for leukocytosis and anemia. Basic metabolic profile will be obtained to assess for electrolyte abnormality renal function. Urinalysis will be obtained to assess for urinary tract infection and hematuria. High-sensitivity troponin will be obtained to assess for cardiac ischemia. 2-hour repeat high-sensitivity troponin will be obtained to assess for ongoing cardiac ischemia. X-ray of the left wrist will be obtained to assess for fracture and loose body. Sed rate and CRP will be obtained to assess for inflammatory markers. Lab Data Attestation: I reviewed the patient's lab results. Lab results narrative: CBC was reviewed and was within normal limits. Comprehensive metabolic profile was reviewed. AST was slightly elevated at 45 and ALT was slightly elevated at 68. Sed rate was reviewed and was normal at 24. CRP was reviewed and was slightly elevated at 5.23. Initial high-sensitivity troponin was reviewed and was less than 6. 2-hour repeat high-sensitivity troponin was reviewed and was less than 6. Urinalysis was reviewed and was within normal limits. Lipase was reviewed and was normal at 30. Labs: Laboratory Results - last 24 hr 10/23/24 10/23/24 10/23/24 17:10 19:00 19:19 WBC 9.9 RBC 4.64 Hgb 13.1 Hct 39.7 MCV 85.6 MCH 28.2 MCHC 33.0 RDW Std Deviation 41.5 RDW Coeff of Avinash 13.3 Plt Count 244 MPV 9.3 Immature Gran % (Auto) 0.400 Neut % (Auto) 78.7 H Lymph % (Auto) 14.1 L [place] % (Auto) 6.3 Eos % (Auto) 0.2 Baso % (Auto) 0.3 Absolute Neuts (auto) 7.8 H Absolute Lymphs (auto) 1.40 Nucleated RBC % 0 ESR 24 Sodium 138 Potassium 3.9 Chloride 101 Carbon Dioxide 23.6 Anion Gap 14 BUN 8 Creatinine 0.76 Estim Creat Clear Calc 80.84 Est GFR (MDRD) Non-Af 88 BUN/Creatinine Ratio 10.2 Glucose 118 H Calcium 9.7 Total Bilirubin 0.41 Direct Bilirubin 0.18 AST 45 H ALT 68 H Alkaline Phosphatase 92 Troponin T High Sens < 6 Troponin T Hi Sens 2 Hr < 6 Troponin T Hi Sens 2Hr [place] UNABLE TO CALCULATE C-React Prot Ext Range 5.23 H Total Protein 7.8 Albumin 4.6 Globulin 3.2 Lipase 30 Urine Color Straw Urine Clarity Clear Urine pH 7.0 Ur Specific [place] 1.010 Urine Protein Negative Urine Glucose (UA) Normal Urine Ketones Negative Urine Occult Blood Negative Urine Nitrite Negative Urine Bilirubin Negative Urine Urobilinogen Normal Ur Leukocyte Esterase Negative Urine RBC 0-5 SEEN Urine WBC 0-5 SEEN Ur Squamous Epith Cells 0-5 SEEN Urine Bacteria 0 SEEN Urine Mucus 0 SEEN Radiography Chest X-Ray - ED: 2 View, Read by ED Physician, Read by Radiologist and No Acute Disease Diagnostic Testing: Clinical Impression(s) from Imaging Studies Wrist X-Ray 10/23/24 17:12 IMPRESSION: No acute fracture or dislocation. Reading [facility] Chest X-Ray 10/23/24 17:15 IMPRESSION: 1. No visible acute cardiopulmonary findings. 2. Additional description as above. Reading Location: [facility] X-rays of the left wrist were obtained. There are 3 views. On my independent interpretation, there is no acute fracture. There is no loose body noted. Radiologist also interpreted the x-rays and agrees. PA and lateral chest x-ray was obtained. There are 2 views. On my independent interpretation, lung west are clear. There is normal cardiac silhouette. Bony thorax is normal. There is no acute process noted. Radiologist also interpreted the x-ray and agrees. EKG Initial EKG: Attestation: I personally reviewed and interpreted this EKG as follows: Interpretation: Sinus Rhythm (80) and Non-Specific ST Changes Comments: EKG was obtained. On my independent interpretation, it showed a normal sinus rhythm with a rate of 80. GA interval, QRS interval, and QTc intervals were all normal. [place] was normal. There are nonspecific ST-T wave changes. Prior EKG tracings: available for review Prior: Unchanged (12/30/2023) Treatment and Re-Evaluation :: Patient was advised of her findings. Patient was advised that this could be gastroesophageal reflux disease or gastritis. Patient was given a prescription for omeprazole. Patient was instructed to take Tylenol or ibuprofen as needed for pain in her wrist. Patient was instructed to ice and elevate the left wrist. Patient was given a wrist splint. Patient was instructed to follow-up with her primary care physician in 5 to 7 days. Patient understood and was agreeable with the plan. All questions were answered. Discharge Plan Triage Chief Complaint: General Illness ED Provider: Nito Doe Dx/Rx/DC Orders Clinical Impression: Epigastric abdominal pain, Left wrist pain, HTN (hypertension) Instructions: ED Arthralgia, ED Epigastric Pain Uncertain Cause Prescriptions: New omeprazole 20 mg capsule,delayed release(DR/EC) 20 mg PO DAILY Qty: 30 0RF No Action escitalopram oxalate 20 mg tablet 20 mg PO QHS lisinopril 40 mg tablet 40 mg PO QHS naproxen 500 mg tablet 500 mg PO BID PRN (Reason: pain) Qty: 20 0RF amlodipine 5 mg tablet 5 mg PO DAILY cholecalciferol (vitamin D3) [Vitamin D3] 125 mcg (5,000 unit) tablet 125 mcg PO DAILY Primary Care Provider: Ladarius Flynn Referrals: Ladarius Flynn MD [Primary Care Provider] - Print Language: Ma[place]
[2024-10-23] MEDS: 0.9% Normal Saline (1000mL) 1,000 ML 1000 ML IV (18:40)
[2024-10-23 19:09] VITALS: BP 139/68; PULSE 66; RESP 12; O2SAT 95
[2024-10-23 19:09] LABS: Bacteria 0 SEEN /hpf (None Seen); Mucous, Urine 0 SEEN /hpf (<or=2+)
[2024-10-23 19:10] LABS: Color, Urine Straw (Yellow); Glucose, Dipstick Normal (Normal); Ketone-Dipstick Negative (Negative); Leukocyte Esterase-Dipstick Negative /ul (Negative); Nitrite-Dipstick Negative (Negative); Occult Blood-Urine Negative /ul (Negative); Protein-Dipstick Negative (Negative); Urine Bilirubin Dipstick Negative (Negative); Urine Clarity Clear (Clear); Urine Urobilinogen Normal (Normal)
[2024-10-23 19:13] LABS: Anion Gap 14 (5-15); BUN 8 mg/dL (4-19); BUN/Creat Ratio 10.2 RATIO (10-20); Calcium,Total 9.7 mg/dL (7.6-11.0); Carbon Dioxide 23.6 mmol/L (21.0-32.0); Chloride 101 mmol/L (98-108); Creatinine, Serum 0.76 mg/dL (0.70-1.20); EST Glomerular Filtration Rate 88 (>60); Estimated Creatinine Clearance 80.84 ml/min (50-250); Glucose 118 mg/dL (70-99); Potassium 3.9 mmol/L (3.3-5.1); Sodium Level 138 mmol/L (133-145)
[2024-10-23 19:23] LABS: Red Blood Cells-Urine 0-5 SEEN /hpf (0-5); Squamous Epithelial Cells - UA 0-5 SEEN /hpf (5-10); White Blood Cells 0-5 SEEN /hpf (0-5)
[2024-10-23 19:28] LABS: AST(SGOT) 45 U/L (<=31); Alanine Aminotransfer ALT/SGPT 68 U/L (<=34); Albumin, Serum 4.6 g/dL (3.4-4.8); Alkaline Phosphatase 92 U/L (35-104); Bilirubin, Direct 0.18 mg/dL (0.00-0.30); Globulin 3.2 g/dL (2.2-4.2); Lipase 30 U/L (13-75); Protein, Total 7.8 g/dL (5.9-8.4); Total Bilirubin 0.41 mg/dL (0.00-1.30)
[2024-10-23 19:54] LABS: TROPONIN VARIANCE 2 HR UNABLE TO CALCULATE; Troponin T High Sens 2 HR < 6 ng/L (<=14)
[2024-10-23 21:00] VITALS: BP 157/80; PULSE 72; RESP 13; O2SAT 95
[2024-10-23 21:03] LABS: Erythrocyte Sedimentation Rate 24 mm/hr (0-30)
[2024-10-23 21:19] LABS: CRP 5.23 mg/L (0.0-3.0)
[2024-10-23 22:42] VITALS: BP 151/87; PULSE 74; RESP 18; TEMP 36.6; O2SAT 99
== END 2024-10-23 22:44 | disposition home or self-care (01) ==
LOC: ED 19:37
PROVIDERS: Emergency Provider Emergency Medicine; PCP Family Medicine; Visit Provider Emergency Medicine
DX: R10.13 Epigastric pain (principal); R11.2 Nausea with vomiting, unspecified; I10 Essential (primary) hypertension; M79.642 Pain in left hand; M25.532 Pain in left wrist; F41.8 Other specified anxiety disorders; E55.9 Vitamin D deficiency, unspecified; Z79.899 Other long term (current) drug therapy
CPT/HCPCS: 71046; 73110; 80048; 80076; 81001; 83690; 84484; 85025; 85652; 86140; 93005; 96360; 96361; 99285; A4216

== ENCOUNTER → 2024-11-01 | Outpatient (CLI) | payer OTHER, SELFPAY ==
--- NOTE | 2024-11-01 15:51 | RAD_ITS ---
PROCEDURE: ABD INC DECUB AND/OR ERECT REASON FOR EXAM: PAIN TECHNIQUE: Upright and supine views of the abdomen, 2 upright and 2 supine nodes to include the entire abdomen and pelvis, 4 total images COMPARISON: None FINDINGS: Visualized lung bases appear clear. No free air identified. Paucity of small bowel gas. Nonspecific bowel gas pattern. Some gas and stool is seen within the colon. Spondylosis. RAD/Abd Inc Decub and/or Erect IMPRESSION: Paucity of small bowel gas. Nonspecific bowel gas pattern. Some gas and stool i s seen within the colon.. Reading Location: [id number]
== END | disposition home or self-care (01) ==
PROVIDERS: PCP Family Medicine; Referring Provider Family Medicine; Visit Provider Family Medicine
DX: R10.9 Unspecified abdominal pain (principal)
CPT/HCPCS: 74019

== ENCOUNTER 2025-01-24 06:07 | Emergency (ER) | payer OTHER, SELFPAY ==
[2025-01-24 06:07] VITALS: BP 167/84; BP 173/82; PULSE 76; RESP 18; TEMP 36.9; O2SAT 96
--- NOTE | 2025-01-24 06:37 | CT_ITS ---
PROCEDURE: SPINE LUMBAR WITHOUT CONTRAST 01/24/2025 REASON FOR EXAM: PAIN / TRAUMA TECHNIQUE: Lumbar spine CT without contrast. Coronal and Sagittal reconstruction series were provided. One or more dose reduction techniques were used (e.g., Automated exposure control, adjustment of the mA and/or kV according to patient size, use of iterative reconstruction technique COMPARISON: None. RADIATION DOSE SUMMARY: CTDlvol: 22.63 mGy DLP: 889.56 mGycm FINDINGS: There are no compression fractures or subluxations. There is maintenance of the normal lumbar lordosis. There is minimal levoscoliosis centered at the L 4 level. There is degenerative disc disease, L4-5 and L5-S1 with narrowing of the disc spaces and marginal osteophytes most severe at the L5-S1 level were there is almost complete loss of the intervertebral disc space. There is multilevel facet arthropathy. There is degenerative grade 1 anterolisthesis of L4 on L5. There is degenerative grade 1 retrolisthesis of L5 on S1. There is calcific vascular disease of the abdominal aorta. There is moderate sigmoid diverticulosis without diverticulitis evident. CT/Spine Lumbar without Contrast IMPRESSION: 1. No evidence of acute injury. 2. Degenerative disc disease L4-5 and L5-S1. 3. Spondylosis with degenerative grade 1 anterolisthesis of L4 on L5 and degen erative retrolisthesis of L5 on S1. 4. Other findings as noted. Reading Location: [id number]
--- OUTSIDE RECORDS SUMMARY | 2025-01-24 06:41 | XMS RPT_ITS | CCD ---
Author Organization [facility] Care Team Providers Care Rod Straightener Name Role Phone Dr. Deep Flynn Primary Care Provider Dr. Deep Flynn Referring Provider Dr. Shanique Rachel Attending Provider Dr. Haydee Flynn Primary Care Provider [phone] Dr. Haydee Flynn Referring Provider Reinaldo Funes MD Unavailable Haydee Flynn Primary Care Provider [phone] REINALDO FUNES Admitting Unavailable REINALDO FUNES Attending Unavailable REINALDO FUNES Referring Unavailable [place] Unavailable CIERA CHARLES Attending Unavailable [place], [place] Primary Care Unavailable REINALDO FUNES Attending Unavailable JUAN ANTONIO LOPEZ Referring Unavaila ble [facility], [place]X Primary Care Unavailable [facility], [place] Primary Care Unavailable CIERA CHARLES Attending Unavailable REINALDO FUNES Referring Unavailable [place], [place] Primary Care Unavailable REINALDO FUNES Attending Unavailable JUAN ANTONIO LOPEZ Referring Unavaila ble [facility], [place]X Primary Care Unavailable [facility], [place]X Primary Care Unavailable CIERA CHARLES Attending Unavailable [place], [place] Primary Care Unavailable Shanique Rachel Attending Unavailabl e Shanique Rachel Referring Unavailabl e Rina, [place] Primary Care Unavailable Shanique Rachel Attending Unavailabl e Haydee Flynn Referring Unavailable [place], [place] Primary Care Unavailable [facility], Haydee Referring Unavailable [place], [place] Primary Care Unavailable Shanique Rachel Attending Unavailabl e Shanique Rachel Referring Unavailabl e Haydee Flynn Primary Care Unavailable Tereso Kim Attending Unavailable Haydee Flynn Referring Unavailable Rina, Haydee Primary Care Unavailable Haydee Flynn Attending Unavailable Rina, Haydee Primary Care Unavailable Rina, Haydee Attending Unavailable Nito Doe Attending Unavailable Rancristy, Haydee Primary Care Unavailable Rina, Haydee Attending Unavailable Rina, Haydee Referring Unavailable Rina, Haydee Primary Care Unavailable Rina, Haydee Referring Unavailable [facility] Unavailable Rina, Haydee Attending Unavailable Rina ACUNA, Dr. Durand Primary Care Provider Rina ACUNA, Dr. Durand Attending Provider [phone] Rina ACUNA, Dr. Durand Referring Provider [phone] Dr. Nito Doe DO Emergency Provider [phone] Dr. Nito Doe DO Attending Provider Allergies Allergy Classification Reported Allergen(s) Allergy Type Date of Onset Reaction(s) Facility (1 source) [facility] 10-23-2024 [facility] Repository (2 sources) [facility] Allergy 10-23-2024 OTHER [facility] Comment on above: MADE ME FEEL FUNNY. I DON'T KNOW Medications Current Medications Medication Drug Class(es) Dates Sig (Normalized) Sig (Original) acetaminophen 500 mg oral tablet (6 sources) Start: 03-20-2024 End: 03-30-2024 take 2 tablets by mouth every six hours as needed for pain acetaminophen (Tylenol Extra Strength) 500 MG tablet Take 2 tablets (1,000 mg) by mouth every 6 hours as needed for mild pain (1-3) for up to 10 days. 30 tablet 03/20/2024 03/30/2024 Active Start: 03-20-2024 End: 03-20-2024 1,000 mg, Oral, Once, On Tue03/20/24 at 1045, For 1 dose, Preprocedure, Administer 60 minutes prior to surgery. allopurinol 100 mg oral tablet (6 sources) Xanthine Oxidase Inhibitor Start: 03-28-2024 allopurinol (Zylopri m) 100 MG tablet Take 200 mg by mouth. 03/28/2024 Active Start: 12-22-2023 End: 02-27-2024 take 2 tablets by mouth once daily allopurinol (Zyloprim) 100 MG tablet Take 200 mg by mouth daily. 12/22/2023 02/27/2024 Discontinued () amLODIPine 5 mg oral tablet (2 sources) Dihydropyridine Calcium Channel Ferny Start: 10-23-2024 take 1 tablet by mouth once daily Amlodipine 5 mg tablet Active 5 mg PO DAILY October 23, 2024 1:00am cholecalciferol 0.125 mg oral tablet (20 sources) Vitamin D Start: 10-23-2024 take 1 tablet by mouth once daily Cholecalciferol (Vitamin D3) (Vitamin D3) 125 mcg (5,000 unit) tablet Active 125 ug PO DAILY October 23, 2024 1:00am Start: 10-31-2023 Cholecalcifero l 50 MCG (2000 UT) chewable tablet Chew daily. 10/31/2023 Active Start: 10-31-2023 Cholecalcifero l 50 MCG (2000 UT) chewable tablet Chew. 10/31/2023 Active Start: 10-31-2023 End: 10-23-2024 take 1 capsule by mouth once daily Cholecalciferol (Vitamin D3) 50 mcg (2,000 unit) capsule Discontinued 50 ug PO DAILY October 31, 2023 12:00am October 23, 2024 7:45pm docusate sodium 100 mg oral capsule (6 sources) Start: 03-20-2024 End: 04-19-2024 take 1 capsule by mouth twice daily docusate sodium (Colace) 100 MG capsule Take 1 capsule (100 mg) by mouth 2 times daily. 60 capsule 03/20/2024 04/19/2024 Active escitalopram 20 mg oral tablet (20 sources) Serotonin Reuptake Inhibitor Start: 11-16-2020 take 1 tablet by mouth at bedtime Escitalopram Oxalate 20 mg tablet Active 20 mg PO AT BEDTIME November 16, 2020 12:00am ibuprofen 600 mg oral tablet (7 sources) Nonsteroidal Anti-inflammatory Drug Start: 03-20-2024 take 1 tablet by mouth every six hours ibuprofen 600 MG tablet Take 1 tablet (600 mg) by mouth in the morning and 1 tablet (600 mg) at noon and 1 tablet (600 mg) in the evening and 1 tablet (600 mg) before bedtime. 30 tablet 03/20/2024 Active lisinopril 40 mg oral tablet (20 sources) Angiotensin Converting Enzyme Inhibitor Start: 10-31-2023 take 1 tablet by mouth at bedtime Lisinopril 40 mg tablet Active 40 mg PO AT BEDTIME October 31, 2023 12:00am naproxen 500 mg oral tablet (4 sources) Nonsteroidal Anti-inflammatory Drug Start: 01-03-2024 End: 02-27-2024 take 1 tablet by mouth twice daily as needed for pain Naproxen 500 mg tablet Active 500 mg PO TWICE A DAY as needed for pain January 03, 2024 12:00am omeprazole 20 mg delayed release oral capsule (2 sources) Proton Pump Inhibitor Start: 10-23-2024 take 1 capsule by mouth once daily Omeprazole 20 mg capsule,delayed release(DR/EC) Active 20 mg PO DAILY October 23, 2024 1:00am oxyCODONE hydrochloride 5 mg oral tablet (3 sources) Opioid Agonist Start: 03-20-2024 End: 03-25-2024 take 1 tablet by mouth every six hours as needed for pain oxyCODONE (Roxicodone) 5 MG immediate release tablet Indications: S/P hysterectomy with oophorectomy Take 1 tablet (5 mg) by mouth every 6 hours as needed for severe pain (7-10) for up to 5 days. 20 tablet 03/20/2024 03/25/2024 Active polyethylene glycol 3350 54842 mg powder for oral solution (7 sources) Osmotic Laxative Start: 03-20-2024 take 17 g by mouth once daily polyethylene glycol, PEG, 3350 (MiraLax) 17 g packet Take 17 g by mouth daily. 30 packet 03/20/2024 Active simethicone 80 mg chewable tablet (4 sources) Start: 03-20-2024 End: 03-30-2024 take 1 tablet by mouth every six hours as needed simethicone (Mylicon) 80 MG chewable tablet Chew 1 tablet (80 mg) every 6 hours as needed for flatulence for up to 10 days. 30 tablet 03/20/2024 03/30/2024 Active Completed/Discontinued Medications Medication Drug Class(es) Dates Sig (Normalized) Sig (Original) acetaminophen 325 mg / oxyCODONE hydrochloride 5 mg oral tablet (7 sources) Opioid Agonist Start: 07-18-2021 End: 10-31-2023 Oxycodone-Acetami nophen (Percocet) 5-325 mg tablet Discontinued 1 {tbl} PO EVERY 6 HOURS as needed for pain 10 3 July 18, 2021 October 31, 2023 2:18pm ALPRAZolam 0.25 mg disintegrating oral tablet (2 sources) Benzodiazepine Start: 03-20-2024 End: 03-20-2024 take 0.25 mg by mouth once as needed for anxiety 0.25 mg, Oral, Once PRN, anxiety, Starting on Tue03/20/24 at 1038, For 1 dose, Preprocedure, Please do not administer prior to obtaining consent and/or history and physical. calcium chloride 0.0014 meq/ml / potassium chloride 0.004 meq/ml / sodium chloride 0.103 meq/ml / sodium lactate 0.028 meq/ml injectable solution (4 sources) Start: 03-20-2024 End: 03-20-2024 take 125 mL intravenously every hour 125 mL/hr, IntraVENous, Continuous, Starting on Tue03/20/24 at 1730, Recovery (only) cefdinir 300 mg oral capsule (2 sources) Cephalosporin Antibacterial Start: 05-31-2023 End: 02-27-2024 take 1 capsule by mouth twice daily cefdinir (Omnicef) 300 MG capsule Take 300 mg by mouth 2 times daily. 05/31/2023 02/27/2024 Discontinued () 1 ml diphenhydrAMINE hydrochloride 50 mg/ml cartridge (2 sources) Histamine-1 Receptor Antagonist Start: 03-20-2024 End: 03-20-2024 12.5 mg, IntraVENous, Once PRN, itching, Starting on Tue03/20/24 at 1723, For 1 dose, Recovery (only) 2 ml fentaNYL 0.05 mg/ml injection (4 sources) Opioid Agonist Start: 03-20-2024 End: 03-20-2024 50 mcg, IntraVENous, Every 5 min PRN, severe pain (7-10), Starting on Tue03/20/24 at 1723, For 3 doses, Recovery (only), Phase I and Phase II- Initial therapy for severe pain (7-10). Restricted to a 90 minute time frame starting when the patient can verbally state their pain score. If after 2 doses the pain score does not decrease by more than one point, then call the provider. If oral meds are utilized, do not return to initial therapy medications. Start: 03-20-2024 End: 03-20-2024 25 mcg, IntraVENous, Every 5 min PRN, moderate pain (4-6), Starting on Tue03/20/24 at 1723, For 3 doses, Recovery (only), Phase I and Phase II- Initial therapy for moderate pain (4-6). Restricted to a 90 minute time frame starting when the patient can verbally state their pain score. If after 2 doses the pain score does not decrease by more than one point, then call the provider. If oral meds are utilized, do not return to initial therapy medications. hydroCHLOROthiazide 12.5 mg / lisinopril 20 mg oral tablet (7 sources) Thiazide Diuretic, Angiotensin Converting Enzyme Inhibitor Start: 2014 End: 10-31-2023 Lisinopril-Hydrochlorothiazi de 1 TABLET tablet Discontinued 1 {tbl} PO DAILY 2014 12:00am October 31, 2023 2:18pm Start: 2014 End: 10-31-2023 take 1 tablet by mouth once daily Lisinopril-Hydrochlorothiazide Discontin ued 1 TABLET PO DAILY 2014 12:00am October 31, 2023 2:18pm labetalol (Normodyne,Trandate) injection 5 mg (2 sources) Start: 03-20-2024 End: 03-20-2024 labetalol (Normodyne,Trandate) injection 5 mg meclizine hydrochloride 25 mg oral tablet (7 sources) Antiemetic Start: 2014 End: 11-16-2020 take 1 tablet by mouth four times daily as needed for dizziness Meclizine 25 MG tablet Discontinued 25 mg PO 4 TIMES DAILY NEEDED as needed for Dizziness 2014 12:00am November 16, 2020 12:42pm 2 ml ondansetron 2 mg/ml injection (9 sources) Serotonin-3 Receptor Antagonist Start: 03-20-2024 End: 03-20-2024 4 mg, IntraVENous, Once PRN, nausea, Starting on Tue03/20/24 at 1723, For 1 dose, Recovery (only), Initial antiemetic therapy. Start: 03-20-2024 take 1 tablet by kai th every twelve hours as needed for nausea ondansetron ODT (Zofran-ODT) 4 MG disintegrating tablet Take 1 tablet (4 mg) by mouth every 12 hours as needed for nausea or vomiting. 10 tablet 03/20/2024 Active predniSONE 20 mg oral tablet (9 sources) Start: 03-07-2023 End: 02-27-2024 take 1 tablet by mouth twice daily, then take 1 tablet by mouth once daily predniSONE (Deltasone) 20 MG tablet TAKE 1 TABLET BY MOUTH TWICE DAILY FOR 5 DAYS THEN 1 TABLET BY MOUTH ONCE DAILY FOR 5 DAYS 03/07/2023 02/27/2024 Discontinued () Start: 07-18-2021 End: 10-31-2023 take 3 tablets by mouth once daily Prednisone 20 MG tablet Discontinued 60 mg PO DAILY July 18, 2021 1:00am October 31, 2023 2:18pm Start: 07-18-2021 End: 10-31-2023 take 60 mg by mouth once daily Prednisone Discontinued 60 MG PO DAILY July 18, 2021 1:00am October 31, 2023 2:18pm 5 ml sodium chloride 9 mg/ml injection (20 sources) Start: 03-20-2024 End: 03-20-2024 10 mL, IntraVENous, Every 12 hours scheduled (2 times per day), First dose on Tue03/20/24 at 2100, Recovery (only) Start: 03-20-2024 End: 03-20-2024 500 mL, IntraVENous, at 1,00 0 mL/hr, Administer over 0.5 Hours, PRN, Anti-nausea, Starting on Tue03/20/24 at 1723, Recovery (only), Indications: Anti-nausea Start: 03-20-2024 End: 03-20-2024 take 100 mL intravenously every hour as needed, then take 20 mL intravenously every hour as needed 5-250 mL/hr, IntraVENous, PRN, if patient receiving piggyback infusions and maintenance fluids are not ordered OR KVO fluids to protect IV site / prevent frequent line interruptions/ long duration, Starting on Tue03/20/24 at 1723, Recovery (only), For piggyback infusion, administer at same rate as piggyback for a total of 25 mL. Enter 25 mL into dose field and piggyback rate into rate field of order. If piggyback is infusing at a rate less than 100 mL/hr, enter 25 mL into dose field and 100 mL/hr into rate field of order. For KVO fluids, enter rate of 20 mL/hr or less into rate field of order. Start: 03-20-2024 End: 03-20-2024 take 10 mL intravenously once as needed 10 mL, IntraVENous, PRN, line care, Starting on Tue03/20/24 at 1723, Recovery (only), After every IV line use Start: 03-20-2024 End: 03-20-2024 take 5-40 mL intravenously every twelve hours 5-40 mL, IntraVENous, Every 12 hours, First dose on Tue03/20/24 at 1045, Preprocedure, For Line Patency: Peripheral IV = 5 mL; Midline or Central Line = 10 mL/lumen. If following IV push medication, administer flush at same rate as the IV push. Flush volume is determined by type of infusion therapy being given. For non-viscous solutions use: Peripheral IV = 5 mL Midline or Central Line = 10 mL/lumen For viscous solutions (i.e. blood components, parenteral nutrition, contrast media, or after obtaining blood sample) use: Peripheral IV = 10 mL Midline or Central Line = 20 mL/lumen Problems Active Problems Problem Classification Problem Date Documented Date Episodic/Chronic Abdominal pain (4 sources) Unspecified abdominal pain; Translations: [Epigastric pain] Onset: 11-07-2024 10-31-2024 Episodic Anxiety disorders (5 sources) Mixed anxiety and depressive disorder; Translations: [Other specified anxiety disorders] 10-31-2023 Chronic Comment on above: ON MED Cancer of uterus (3 sources) Malignant neoplasm of endometrium of corpus uteri ; Translations: [Malignant neoplasm of endometrium] Onset: 01-20-2024 01-19-2024 Chronic Essential hypertension (5 sources) Hypertensive disorder; Translations: [Essential (primary) hypertension] 10-31-2023 Chronic Comment on above: CONTROLLED WITH MED Genitourinary symptoms and ill-defined conditions (20 sources) Female stress incontinence; Translations: [Stress incontinence (female) (male)] Onset: 02-27-2024 01-20-2024 Chronic Genitourinary symptoms and ill-defined conditions (4 sources) Abnormal urine; Translations: [Unspecified abnormal findings in urine] Onset: 02-27-2024 02-27-2024 Episodic Gout and other crystal arthropathies (8 sources) Acute gout; Translations: [Gout, unspecified] Onset: 12-26-2023 07-26-2021 Chronic Menopausal disorders (10 sources) Postmenopausal bleeding; Translations: [Postmenopausal bleeding] Onset: 01-10-2024 10-31-2023 Chronic Nutritional deficiencies (5 sources) Vitamin D deficiency; Translations: [Vitamin D deficiency, unspecified] 10-31-2023 Chronic Nutritional deficiencies (1 source) Deficiency of other specified B group vitamins; Translations: [Deficiency of other specified B group vitamins] Onset: 11-02-2024 Episodic Other aftercare (2 sources) Surgical follow-up; Translations: [Encounter for follow-up examination after completed treatment for conditions other than malignant neoplasm] 04-13-2024 Episodic Other diseases of bladder and urethra (3 sources) Overactive bladder; Translations: [Overactive bladder] 02-27-2024 Chronic Other diseases of bladder and urethra (2 sources) Overactive bladder; Translations: [Overactive bladder] Onset: 02-27-2024 Chronic Other non-traumatic joint disorders (2 sources) Pain in wrist; Translations: [Pain in left wrist] 10-31-2024 Episodic Other screening for suspected conditions (not mental disorders or infectious disease) (10 sources) Endometrium thickened; Translations: [Abnormal findings on diagnostic imaging of other specified body structures] Onset: 12-21-2023 10-31-2023 Chronic 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) Disorder of rectum; Translations: [Rectocele] Onset: 02-27-2024 01-20-2024 Chronic Residual codes; unclassified (1 source) Postoperative state; Translations: [Other specified postprocedural states] 04-02-2024 Episodic Residual codes; unclassified (2 sources) Other specified postprocedural states; Translations: [Other specified postprocedural states] Onset: 04-04-2024 Episodic Residual codes; unclassified (2 sources) Acquired absence of both cervix and uterus; Translations: [Acquired absence of both cervix and uterus] Onset: 03-20-2024 Episodic Residual codes; unclassified (2 sources) Acquired absence of ovaries, unilateral; Translations: [Acquired absence of ovaries, unilateral] Onset: 03-20-2024 Episodic Unclassified (2 sources) Post-op; Translations: [Post-op] Onset: 04-30-2024 Past or Other Problems Problem Classification Problem Date Documented Da te Episodic/Chronic Malaise and fatigue (1 source) Other fatigue; Translations: [Other fatigue] Onset: 06-16-2024 Episodic Results Test Name Value Interpretation Reference Range Facility [facility] Decub and/or Erecton 11-01-2024 Abd Inc Decub and/or Erect [facility] Imaging Services [address] [place] [address] Abd Inc Decub and/or Erect MR#: [id number] Acct: [id number] Name: YVONNE ALLEN Rep #: [id number] : 1960 F 64 From: Parveen Figueroa MD PCP: Dr. Haydee Flynn MD Status: REG CLI Study: Abd Inc Decub and/or Erect Date of Exam: 11/01 Exam# [id number] Ordering Dr: Haydee Flynn PROCEDURE: ABD INC DECUB AND/OR ERECT REASON FOR EXAM: PAIN TECHNIQUE: Upright and supine views of the abdomen, 2 upright and 2 supine nodes to include the entire abdomen and pelvis, 4 total images COMPARISON: None FINDINGS: Visualized lung bases appear clear. No free air identified. Paucity of small bowel gas. Nonspecific bowel gas pattern. Some gas and stool is seen within the colon. Spondylosis. RAD/Abd Inc Decub and/or Erect IMPRESSION: Paucity of small bowel gas. Nonspecific bowel gas pattern. Some gas and stool is seen within the colon.. Reading Location: [facility] CC: Dr. Haydee Flynn MD Ceramics Engineer: Signed Normal [facility] 12 Lead EKGon 10-23-2024 12 Lead EKG [facility] Cardiovascular Services [address] [place] [address] 12 Lead EKG 10/23/24 1702 MR#: [id number] Acct: [id number] Name: YVONNE ALLEN Rep #: [id number] : 1960 64 From: Rayray Olsen MD Attending Dr: Status: DEP ER Ordering Dr: Nito Doe DO Date: 10/23/24 Location: ED Sex: F C Admitted: Test Reason : NECK/CHEST PAIN Blood Pressure : */* mmHG Vent. Rate : 80 BPM Atrial Rate : 80 BPM P-R Int : 162 ms QRS Dur : 72 ms QT Int : 368 ms P-R-T Axes : 19 -5 18 degrees QTcB Int : 424 ms Normal sinus rhythm Nonspecific ST and T wave abnormality Abnormal ECG Confirmed by Rayray Olsen ([id number]), primer expeditor and drier SHILPA PENN ([id number]) on 10/25/2024 6:56:35 AM Referred By: Confirmed By: Rayray Olsen 10/25/24 0656 Date Rayray Olsen MD CC: Dr. Haydee Flynn MD; Dr. Nito Doe DO Signed Normal [facility] Absolute neutrophil countOrd ered By: ED PROVIDER on 10-23-2024 Neutrophils (Bld) [#/Vol] 7.8 10*3/uL High 2.0-7.7 [facility] Anion gap in Serum or Plasma Ordered By: Nito Doe on 10-23-2024 Anion gap [Moles/Vol] 14 mmol/L - [facility] BUN/creatinine ratioOrdered By: Nito Doe on 10-23-2024 Urea nitrogen/Creatinine [Mass ratio] 10.2 mg/mg - [facility] Basic Metabolic Profile (BMP )on 10-23-2024 BUN/CRE 10.2 RATIO Normal 06-10 [facility] Comment on above: Performed By: #### L 501.4021, L100.0100, L500.2500 #### [facility] [address] [place], [address] Calcium [Mass/Vol] 9.7 mg/dL Normal 7.6-11.0 [facility] Comment on above: Performed By: #### L 501.4021, L100.0100, L500.2500 #### [facility] [address] [place], [address] Chloride [Moles/Vol] 101 mmol/L Normal 98-108 [facility] Comment on above: Performed By: #### L 501.4021, L100.0100, L500.2500 #### [facility] [address] [place], [address] CO2 [Moles/Vol] 23.6 mmol/L Normal 21.0-32.0 [facility] Comment on above: Performed By: #### L 501.4021, L100.0100, L500.2500 #### [facility] [address] [place], [address] Creatinine [Mass/Vol] 0.76 mg/dL Normal 0.70-1.20 [facility] Comment on above: Performed By: #### L 501.4021, L100.0100, L500.2500 #### [facility] [address] [place], [address] ECRCL 80.84 ml/min Normal 50-250 [facility] Comment on above: Performed By: #### L 501.4021, L100.0100, L500.2500 #### [facility] [address] [place], [address] GAP 14 Normal 5-15 [facility] Comment on above: Performed By: #### L 501.4021, L100.0100, L500.2500 #### [facility] [address] [place], [address] GFR/1.73 sq M.predicted among non-blacks MDRD (S/P/Bld) [Vol rate/Area] 88 mL/min/{1.73_m2} Normal >60 [facility] Comment on above: Result Comment: mL/m in/1.73m2 CKD-EPI Creatinine Equation (2020) Performed By: #### L 501.4021, L100.0100, L500.2500 #### [facility] [address] [place], [address] Glucose [Mass/Vol] 118 mg/dL High 70-99 [facility] Comment on above: Performed By: #### L 501.4021, L100.0100, L500.2500 #### [facility] [address] [place], [address] Potassium [Moles/Vol] 3.9 mmol/L Normal 3.3-5.1 [facility] Comment on above: Performed By: #### L 501.4021, L100.0100, L500.2500 #### [facility] [address] [place], [address] Sodium [Moles/Vol] 138 mmol/L Normal 133-145 [facility] Comment on above: Performed By: #### L 501.4021, L100.0100, L500.2500 #### [facility] [address] [place], [address] Urea nitrogen [Mass/Vol] 8 mg/dL Normal 4-19 [facility] Comment on above: Performed By: #### L 501.4021, L100.0100, L500.2500 #### [facility] [address] [place], [address] Basophil percentageOrdered B y: ED PROVIDER on 10-23-2024 Basophils/100 WBC (Bld) 0.3 % 0-1 [facility] Bilirubin Test strip Ql (U)O rdered By: Nito Doe on 10-23-2024 Bilirubin Ql (U) Negative Negative [facility] Bilirubin directOrdered By: Nito Doe on 10-23-2024 Bilirubin.direct [Mass/Vol] 0.18 mg/dL 0.00-0.30 [facility] Bilirubin, totalOrdered By: Nito Doe on 10-23-2024 Bilirubin [Mass/Vol] 0.41 mg/dL 0.00-1.30 [facility] CBC W/Diff, Automatedon Absolute Lymph 1.40 X10 3/uL Normal 0.83-4.51 [facility] Comment on above: Performed By: #### L 501.4021, L100.0100, L500.2500 #### [facility] [address] [place], [address] Absolute Neut 7.8 X10 3/uL High 2.0-7.7 [facility] Comment on above: Performed By: #### L 501.4021, L100.0100, L500.2500 #### [facility] [address] [place], [address] Basophils/100 WBC (Bld) 0.3 % Normal 0-1 [facility] Comment on above: Performed By: #### L 501.4021, L100.0100, L500.2500 #### [facility] [address] [place], [address] Eosinophils/100 WBC (Bld) 0.2 % Normal 0-5 [facility] Comment on above: Performed By: #### L 501.4021, L100.0100, L500.2500 #### [facility] [address] [place], [address] Erythrocyte distribution width (RBC) [Ratio] 13.3 % Normal 11.6-14.6 [facility] Comment on above: Performed By: #### L 501.4021, L100.0100, L500.2500 #### [facility] [address] [place], [address] Hematocrit (Bld) [Volume fraction] 39.7 % Normal 37-47 [facility] Comment on above: Performed By: #### L 501.4021, L100.0100, L500.2500 #### [facility] [address] [place], [address] Hemoglobin (Bld) [Mass/Vol] 13.1 g/dL Normal 12.0-15.0 [facility] Comment on above: Performed By: #### L 501.4021, L100.0100, L500.2500 #### [facility] [address] [place], [address] IG% 0.400 Normal 0.0-0.9 [facility] Comment on above: Result Comment: IG% - Immature Granulocytes (promyelocytes, myelocytes and metamyelocytes) > 1% indicates that a LEFT SHIFT is Present. Performed By: #### L 501.4021, L100.0100, L500.2500 #### [facility] [address] [place], [address] Lymphocytes/100 WBC (Bld) 14.1 % Low 19-41 [facility] Comment on above: Performed By: #### L 501.4021, L100.0100, L500.2500 #### [facility] [address] [place], [address] MCH (RBC) [Entitic mass] 28.2 pg Normal 27.0-32.0 [facility] Comment on above: Performed By: #### L 501.4021, L100.0100, L500.2500 #### [facility] [address] [place], [address] MCHC (RBC) [Mass/Vol] 33.0 g/dL Normal 32-36 [facility] Comment on above: Performed By: #### L 501.4021, L100.0100, L500.2500 #### [facility] [address] [place], [address] MCV (RBC) [Entitic vol] 85.6 fL Normal 81-99 [facility] Comment on above: Performed By: #### L 501.4021, L100.0100, L500.2500 #### [facility] [address] [place], [address] Monocytes/100 WBC (Bld) 6.3 % Normal 0-10 [facility] Comment on above: Performed By: #### L 501.4021, L100.0100, L500.2500 #### [facility] [address] [place], [address] Neutrophils/100 WBC (Bld) 78.7 % High 47-70 [facility] Comment on above: Performed By: #### L 501.4021, L100.0100, L500.2500 #### [facility] [address] [place], [address] Nucleated RBC (Bld) [#/Vol] 0 10*3/uL Normal 0-5 [facility] Comment on above: Performed By: #### L 501.4021, L100.0100, L500.2500 #### [facility] [address] [place], [address] Platelet mean volume (Bld) [Entitic vol] 9.3 fL Normal 6.2-12.0 [facility] Comment on above: Performed By: #### L 501.4021, L100.0100, L500.2500 #### [facility] [address] [place], [address] Platelets (Bld) [#/Vol] 244 10*3/uL Normal 150-450 [facility] Comment on above: Performed By: #### L 501.4021, L100.0100, L500.2500 #### [facility] [address] [place], [address] RBC (Bld) [#/Vol] 4.64 10*6/uL Normal 4.2-5.4 [facility] Comment on above: Performed By: #### L 501.4021, L100.0100, L500.2500 #### [facility] [address] [place], [address] RDW SD 41.5 fl Normal 35.1-43.9 [facility] Comment on above: Performed By: #### L 501.4021, L100.0100, L500.2500 #### [facility] [address] [place], [address] WBC (Bld) [#/Vol] 9.9 10*3/uL Normal 4.4-11.0 [facility] Comment on above: Performed By: #### L 501.4021, L100.0100, L500.2500 #### [facility] [address] [place], [address] CRPon 10-23-2024 C-REACTIVE PROT 5.23 mg/L High 0.0-3.0 [facility] Comment on above: Performed By: #### L 503.0106, L506.1001 #### [facility] [address] [place], [address] CRP [Mass/Vol]Ordered By: Haylie Doe on 10-23-2024 C-Reactive Protein Extended Range 5.23 mg/L High 0.0-3.0 [facility] Carbon dioxide, total [Moles /volume] in Central venous bloodOrdered By: Nito Doe on 10-23-2024 CO2 [Moles/Vol] 23.6 mmol/L 21.0-32.0 [facility] Chest PA and Lateralon 10-23 Chest PA and Lateral [facility] Imaging Services [address] [place] [address] Chest PA and Lateral MR#: [id number] Acct: [id number] Name: YVONNE ALLEN ANGIE Rep #: [id number] : 1960 F 64 From: Qamar Suarez MD PCP: Dr. Haydee Flynn MD Status: PRE ER Study: Chest PA and Lateral Date of Exam: 10/23/24 Exam# [id number] Ordering Dr: Marleen,Ed P. PROCEDURE: CHEST PA AND LATERAL REASON FOR EXAM: Chest pain TECHNIQUE: PA and lateral views of the chest. COMPARISON: None. FINDINGS: Heart: Unremarkable. Mediastinum: Unremarkable. Lungs/pleura: Hypoinflation with vascular crowding. No convincing focal consolidation. No effusion or visible pneumothorax. Likely calcified granuloma on the left. Bones: Multilevel spondylosis. Lines and support devices: None. RAD/Chest PA and Lateral IMPRESSION: 1. No visible acute cardiopulmonary findings. 2. Additional description as above. Reading Location: [facility] CC: Dr. Haydee Flynn MD; ED PHYSICIAN PROVIDER Ceramics Engineer: Signed Normal [facility] Chloride assayOrdered By: Haylie Doe on 10-23-2024 Chloride [Moles/Vol] 101 mmol/L 98-108 [facility] Emergency Department Summary on 10-23-2024 Emergency Department Summary [facility] Medical Records Department [address] [place] [address] Emergency Department Summary 10/23/24 MR#: [id number] Acct: [id number] Name: YVONNE ALLEN Rep #: [id number] : 1960 64 From: Nito Doe DO PCP: Dr. Haydee Flynn MD Status:DEP ER Location: ED HPI History of Present Illness Chief Complaint: General Illness Informant: patient Onset/Context/Timing Onset: Yesterday Context: Gradual Onset Timing: Continuous Quality: Burning Location: Upper abdomen Worsened by: Nothing Relieved by: Tums helped somewhat Narrative Narrative: Patient presents with abdominal pain that began yesterday. Patient states it is gradually gotten worse. Patient describes it as burning. Patient states it is mainly over the upper abdomen. Patient states that she has been taking Tums which has been helping somewhat. Patient states nothing makes it worse. Patient also complains of pain in her left wrist and left hand which has been getting worse over the last 5 days. Patient denies any redness over the area. Patient denies any fevers or chills. Patient admits to some nausea but denies any vomiting. Patient also admits to some urinary frequency but denies any dysuria or hematuria. [facility] Medical History Loss of hearing Wears glasses Post-menopausal Back pain Heartburn Non-smoker Leg cramps History of edema History of stress test Squamous cell carcinoma Basal cell carcinoma Melanoma Vitamin D deficiency Depression with anxiety Bone tumor Arthritis HTN (hypertension) Seasonal allergies Home Medications ???Medication ???Instructions ???Recorded ???Last Taken ???Type escitalopram oxalate 20 mg tablet 20 mg PO QHS 11/16/20 Unknown His tory lisinopril 40 mg tablet 40 mg PO QHS 10/31/23 Unknown Hist ory naproxen 500 mg tablet 500 mg PO BID PRN pain #20 tabs Unknown Rx amlodipine 5 mg tablet 5 mg PO DAILY 10/23/24 Unknown His tory cholecalciferol (vitamin D3) 125 125 mcg PO DAILY 10/23/24 Unknown History mcg (5,000 unit) tablet (Vitamin D3) omeprazole 20 mg capsule,delayed 20 mg PO DAILY #30 CAPSULES Unknown Rx release Allergy/AdvReac Type Severity Reaction Status Date / Time bupropion AdvReac Mild OTHER Verified 10/23/24 16:53 Surgical History S/P D C (status post dilation and curettage) H/O squamous cell carcinoma excision S/P laparotomy S/P tubal ligation Hx of melanoma excision Social History Smoking Status: Never smoker alcohol intake: never substance use type: does not use caffeine: Yes what type of physical activity do you participate in: none seatbelt use: always do you feel safe at home: Yes additional social history: - Gene ROS ROS ED Constitutional Constitutional ED: Denies chills or fever(s) Eyes Eyes: Denies blurry vision or change in vision ENT ENT ED: Denies rhinorrhea or sore throat Cardiovascular Cardiovascular: Reports chest pain; Denies palpitations Respiratory/Chest Respiratory/Chest: Denies cough or dyspnea Gastrointestinal Gastrointestinal: Reports abdominal pain and nausea; Denies vomiting Genitourinary Genitourinary ED: Reports urinary frequency; Denies dysuria or hematuria Musculoskeletal Musculoskeletal: Reports neck pain; Denies back pain Integumentary Denies abscess or rash Neurologic Neurologic: Reports headache(s); Denies weakness Allergic/Immunologic Allergic/Immunologic ED: Denies mouth swelling or urticaria EXAM Physical Exam Const Vital Signs: 10/23/24 16:53 10/23/24 18:11 10/23/24 18:41 Temperature 97.6 F L Temperature Source Temporal Pulse Rate 91 Respiratory Rate 15 Respiratory Effort Normal Respiratory Pattern Normal Blood Pressure 184/89 H Blood Pressure Mean 120 Pulse Ox 98 Oxygen Delivery Method Room Air Room Air 10/23/24 19:09 10/23/24 21:00 Temperature Temperature Source Pulse Rate 66 72 Respiratory Rate 12 13 Respiratory Effort Respiratory Pattern Blood Pressure 139/68 H 157/80 H Blood Pressure Mean 91 105 Pulse Ox 95 95 Oxygen Delivery Method Room Air Room Air Positive well nourished and well developed General Appearance ED: well developed and NAD HEENT Reports moist mucous membranes Neck supple and no JVD Resp normal respiratory effort and clear to auscultation bilaterally Cardio regular rate and regular rhythm GI non-distended Palpation: soft and tender epigastric; Negative for guarding or rebound tenderness present Neuro oriented x3, CN's II-XII intact bilaterally and no sensory deficits noted S (more content not included)... Normal [facility] Eosinophil percentageOrdered By: ED PROVIDER on 10-23-2024 Eosinophils/100 WBC (Bld) 0.2 % 0-5 [facility] Epithelial cells.squamous LM Ql (Urine sed)Ordered By: Nito Doe on 10-23-2024 Epithelial cells.squamous LM.HPF (Urine sed) [#/Area] 0 /[HPF] 5-10 [facility] Erythrocyte Sed Rateon 10-23 SED RATE 24 mm/hr Normal 0-30 [facility] Comment on above: Performed By: #### L 503.0106, L506.1001 #### [facility] [address] [place], [place], [id number] Erythrocyte distribution wid th ratioOrdered By: ED PROVIDER on 10-23-2024 Erythrocyte distribution width (RBC) [Ratio] 13.3 % 11.6-14.6 [facility] Erythrocyte distribution wid th standard deviationOrdered By: ED PROVIDER on 10-23-2024 Erythrocyte distribution width (RBC) [Entitic vol] 41.5 fL 35.1-43.9 [facility] Erythrocyte sedimentation ra teOrdered By: Nito Doe on 10-23-2024 ESR (Bld) [Velocity] 24 mm/h 0-30 [facility] Estimation of creatinine adrian aranceOrdered By: Nito Doe on 10-23-2024 Estimated Creatinine Clearance Calc 80.84 ml/min 50-250 [facility] GFR/1.73 sq M.predicted apryl g non-blacks MDRD (S/P/Bld) [Vol rate/Area]Ordered By: Nito Doe on 10-23-2024 Estimated GFR (MDRD) Non-Af Amer 88 >60 [facility] Comment on above: mL/min/1.73m2 CKD-EP I Creatinine Equation (2020) Glucose Ql (U)Ordered By: Haylie Doe on 10-23-2024 Urine Glucose (UA) Normal mg/dl Normal [facility] Hematocrit Auto (Bld) [Volum e fraction]Ordered By: ED PROVIDER on 10-23-2024 Hematocrit (Bld) [Volume fraction] 39.7 % 37-47 [facility] Hemoglobin measurementOrdere d By: ED PROVIDER on 10-23-2024 Hemoglobin (Bld) [Mass/Vol] 13.1 g/dL 12.0-15.0 [facility] Immature granulocytes/100 WB C Auto (Bld)Ordered By: ED PROVIDER on 10-23-2024 Immature granulocytes/100 WBC (Bld) 0.400 % 0.0-0.9 [facility] Comment on above: IG% - Immature Granu locytes (promyelocytes, myelocytes and metamyelocytes) > 1% indicates that a LEFT SHIFT is Present. Ketones Test strip Ql (U)Ord ered By: Nito Doe on 10-23-2024 Ketones Ql (U) Negative Negative [facility] L499.0042on 10-23-2024 Trop T Delta UNABLE TO CALCULATE Normal [facility] Comment on above: Result Comment: Gini ble to calculate due to result outside of linear range UNABLE TO CALCULATE Performed By: #### L 499.0042 #### [facility] [address] [place], [address] Trop T High Sen < 6 Normal <=14 [facility] Comment on above: Performed By: #### L 499.0042 #### [facility] [address] [place], [address] L501.4021on 10-23-2024 Trop T High Sen < 6 Normal <=14 [facility] Comment on above: Performed By: #### L 501.4021, L100.0100, L500.2500 #### [facility] [address] [place], [address] Laboratory - Chemistry and C hemistry - challengeOrdered By: Nito Doe on 10-23-2024 AST [Catalytic activity/Vol] 45 U/L High <32 [facility] Lipaseon 10-23-2024 Lipase [Catalytic activity/Vol] 30 U/L Normal 13-75 [facility] Comment on above: Result Comment: Kevin green note: LIPASE revised reference range effective 22. New Lipase methodology. Expected to produce lower values than the previous assay method. NEW Reference Range: 13 - 75 U/L Performed By: #### L 503.0106, L506.1001 #### [facility] [address] [place], [address] Lipase measurementOrdered By : Nito Doe on 10-23-2024 Lipase [Catalytic activity/Vol] 30 U/L 13-75 [facility] Comment on above: Please note:LIPASE r evised reference range effective 22. New Lipase methodology. Expected to produce lower values than the previous assay method. NEW Reference Range: 13 - 75 U/L Liver Profileon 10-23-2024 Albumin [Mass/Vol] 4.6 g/dL Normal 3.4-4.8 [facility] Comment on above: Performed By: #### L 503.0106, L506.1001 #### [facility] [address] [place], [address] ALK PHOS 92 U/L Normal 35-104 [facility] Comment on above: Performed By: #### L 503.0106, L506.1001 #### [facility] [address] [place], [address] ALT [Catalytic activity/Vol] 68 U/L High <=34 [facility] Comment on above: Performed By: #### L 503.0106, L506.1001 #### [facility] [address] [place], [address] AST [Catalytic activity/Vol] 45 U/L High <=31 [facility] Comment on above: Performed By: #### L 503.0106, L506.1001 #### [facility] [address] [place], [address] Bilirubin [Mass/Vol] 0.41 mg/dL Normal 0.00-1.30 [facility] Comment on above: Performed By: #### L 503.0106, L506.1001 #### [facility] [address] [place], [address] Bilirubin.direct [Mass/Vol] 0.18 mg/dL Normal 0.00-0.30 [facility] Comment on above: Performed By: #### L 503.0106, L506.1001 #### [facility] [address] [place], [address] Globulin (S) [Mass/Vol] 3.2 g/dL Normal 2.2-4.[address] [facility] Comment on above: Performed By: #### L 503.0106, L506.1001 #### [facility] [address] [place], [address] T PROT 7.8 g/dL Normal 5.9-8.4 [facility] Comment on above: Performed By: #### L 503.0106, L506.1001 #### [facility] [address] [place], [address] Lymphocytes Auto (Unsp spec) [#/Vol]Ordered By: ED PROVIDER on 10-23-2024 Lymphocytes (Bld) [#/Vol] 1.40 10*3/uL 0.83-4.51 [facility] Lymphocytes/100 WBC Auto (Un sp spec)Ordered By: ED PROVIDER on 10-23-2024 Lymphocytes/100 WBC (Bld) 14.1 % Low 19-41 [facility] MCV (mean corpuscular volume ) determinationOrdered By: ED PROVIDER on 10-23-2024 MCV (RBC) [Entitic vol] 85.6 fL 81-99 [facility] Mean corpuscular hemoglobin (MCH) determinationOrdered By: ED PROVIDER on 10-23-2024 MCH (RBC) [Entitic mass] 28.2 pg 27.0-32.0 [facility] Mean corpuscular hemoglobin concentration (MCHC) determinationOrdered By: ED PROVIDER on 10-23-2024 MCHC (RBC) [Mass/Vol] 33.0 g/dL 32-36 [facility] Mean platelet volume determi nationOrdered By: ED PROVIDER on 10-23-2024 Platelet mean volume (Bld) [Entitic vol] 9.3 fL 6.2-12.0 [facility] Microscopic analysis of urin e for red blood cells (RBC)Ordered By: Nito Doe on 10-23-2024 Urine RBC 0-5 SEEN /hpf 0-5 [facility] Monocyte percentageOrdered B y: ED PROVIDER on 10-23-2024 Monocytes/100 WBC (Bld) 6.3 % 0-10 [facility] Mucus LM Ql (Urine sed)Order ed By: Nito Doe on 10-23-2024 Mucus Ql (Urine sed) 0 SEEN /hpf [facility] Neutrophil percentageOrdered By: ED PROVIDER on 10-23-2024 Neutrophils/100 WBC (Bld) 78.7 % High 47-70 [facility] Nitrite Test strip Ql (U)Ord ered By: Nito Doe on 10-23-2024 Nitrite Ql (U) Negative Negative [facility] No Panel InformationOrdered By: Nito Doe on 10-23-2024 Troponin T Hi Sensitivity 2Hr Delta UNABLE TO CALCULATE [facility] Comment on above: Unable to calculate due to result outside of linear rangeUNABLE TO CALCULATE No Panel InformationOrdered By: ED PROVIDER on 10-23-2024 Troponin T High Sensitivity < 6 ng/L <14 [facility] Nucleated red blood cell per centageOrdered By: ED PROVIDER on 10-23-2024 Nucleated RBC/100 WBC (Bld) [Ratio] 0 % 0-5 [facility] Platelet countOrdered By: ED PROVIDER on 10-23-2024 Platelets (Bld) [#/Vol] 244 10*3/uL 150-450 [facility] Potassium (Unsp spec) [Mass/ Vol]Ordered By: Nito Doe on 10-23-2024 Potassium [Moles/Vol] 3.9 mmol/L 3.3-5.1 [facility] Protein Test strip Ql (U)Ord ered By: Nito Doe on 10-23-2024 Protein Ql (U) Negative Negative [facility] RBC Auto (Bld) [#/Vol]Ordere d By: ED PROVIDER on 10-23-2024 RBC (Bld) [#/Vol] 4.64 10*6/uL 4.2-5.4 [facility] Serum creatinine measurement (mass/volume)Ordered By: Nito Doe on 10-23-2024 Creatinine [Mass/Vol] 0.76 mg/dL 0.70-1.20 [facility] Serum globulin measurementOr dered By: Nito Doe on 10-23-2024 Globulin (S) [Mass/Vol] 3.2 g/dL 2.2-4.2 [facility] Serum glucose measurement (m ass/volume)Ordered By: Nito Doe on 10-23-2024 Glucose [Mass/Vol] 118 mg/dL High 70-99 [facility] Serum or plasma alanine de souza otransferase (ALT) measurementOrdered By: Nito Doe on 10-23-2024 ALT [Catalytic activity/Vol] 68 U/L High <35 [facility] Serum or plasma albumin ankur urement (mass/volume)Ordered By: Nito Doe on 10-23-2024 Albumin [Mass/Vol] 4.6 g/dL 3.4-4.8 [facility] Serum or plasma alkaline vicky sphatase measurementOrdered By: Nito Doe on 10-23-2024 ALP [Catalytic activity/Vol] 92 U/L 35-104 [facility] Serum or plasma calcium ankur urement (mass/volume)Ordered By: Nito Doe on 10-23-2024 Calcium [Mass/Vol] 9.7 mg/dL 7.6-11.0 [facility] Serum or plasma urea nitroge n measurement (mass/volume)Ordered By: Nito Doe on 10-23-2024 Urea nitrogen [Mass/Vol] 8 mg/dL 4-19 [facility] Sodium levelOrdered By: Nito Doe on 10-23-2024 Sodium [Moles/Vol] 138 mmol/L 133-145 [facility] Total proteinOrdered By: Tari Doe on 10-23-2024 Protein [Mass/Vol] 7.8 g/dL 5.9-8.4 [facility] Troponin T.cardiac High sens itivity method [Mass/Vol]Ordered By: Nito Doe on 10-23-2024 Troponin T High Sensitivity 2 Hour < 6 ng/L <14 [facility] Urinalysis, Completeon 10-23 EPI,SQUAMOUS 0-5 SEEN Normal 5-10 [facility] Comment on above: Order Comment: CLEAN CATCH Performed By: #### L 503.0106, L506.1001 #### [facility] [address] [place], [address] RBC 0-5 SEEN Normal 0-5 [facility] Comment on above: Order Comment: CLEAN CATCH Performed By: #### L 503.0106, L506.1001 #### [facility] [address] [place], [address] WBC 0-5 SEEN Normal 0-5 [facility] Comment on above: Order Comment: CLEAN CATCH Performed By: #### L 503.0106, L506.1001 #### [facility] [address] [place], [address] BACTERIA 0 SEEN Normal None Seen [facility] Comment on above: Order Comment: CLEAN CATCH Performed By: #### L 503.0106, L506.1001 #### [facility] [address] [place], [address] Mucus Ql (Urine sed) 0 SEEN Normal [facility] Comment on above: Order Comment: CLEAN CATCH Performed By: #### L 503.0106, L506.1001 #### [facility] [address] [place], [address] Urine blood detectionOrdered By: Nito Doe on 10-23-2024 Urine Occult Blood Negative Negative [facility] Urine clarityOrdered By: Tari Doe on 10-23-2024 Clarity (U) Clear Clear [facility] Urine color determinationOrd ered By: Nito Doe on 10-23-2024 Color (U) Straw Yellow [facility] Urine leukocyte esterase det ection by dipstickOrdered By: Nito Doe on 10-23-2024 Leukocyte esterase Test strip Ql (U) Negative Negative [facility] Urine pHOrdered By: Nito mckeon on 10-23-2024 pH (U) 7.0 [pH] 5.0 - 8.0 [facility] Urine sediment bacteria coun t by microscopy (number/high power field)Ordered By: Nito Doe on 10-23-2024 Bacteria LM.HPF (Urine sed) [#/Area] 0 /[HPF] None Seen [facility] Urine specific gravity measu rementOrdered By: Nito Doe on 10-23-2024 Specific gravity (U) [Rel density] 1.010 1.002-1.030 [facility] Urobilinogen Ql (U)Ordered B y: Nito Doe on 10-23-2024 Urine Urobilinogen Normal mg/dl Normal [facility] White blood cell (WBC) count Ordered By: ED PROVIDER on 10-23-2024 WBC (Bld) [#/Vol] 9.9 10*3/uL 4.4-11.0 [facility] White blood cell countOrdere d By: Nito Doe on 10-23-2024 Urine WBC 0-5 SEEN /hpf 0-5 [facility] Wrist min 3 Viewson 10-24-19 25 Wrist min 3 Views [facility] Imaging Services [address] [place] [address] Wrist min 3 Views MR#: [id number] Acct: [id number] Name: YVONNE ALLEN Rep #: [id number] : 1960 F 64 From: Troy Dorsey DO PCP: Dr. Haydee Flynn MD Status: PRE ER Study: Wrist min 3 Views Date of Exam: 10/23/24 Exam# [id number] Ordering Dr: Provider,Ed P. PROCEDURE: WRIST MIN 3 VIEWS REASON FOR EXAM: Swelling TECHNIQUE: Three views of the left wrist were obtained. COMPARISON: None. FINDINGS: No visible fracture. No suspicious bone lesion. Normal alignment. Soft tissues are unremarkable. RAD/Wrist min 3 Views IMPRESSION: No acute fracture or dislocation. Reading Location: [facility] CC: Dr. Haydee Flynn MD; ED PHYSICIAN PROVIDER Ceramics Engineer: Signed Normal [facility] L503.0106on 10-17-2024 Cobalamin (Vitamin B12) [Mass/Vol] 431 pg/mL Normal 180-914 [facility] Comment on above: Performed By: #### L 503.0106, L506.1001 #### [facility] [address] [place], [address] L506.1001on 10-17-2024 Vitamin D 25-OH 21.6 ng/mL Low 30-100 [facility] Comment on above: Result Comment: Isabel min D Status Deficiency: <20 ng/mL (50nmol/L) Insufficiency: 20-30 ng/mL (50-75 nmol/L) Sufficiency: 30-100 ng/mL (75-250 nmol/L) Toxicity: >100 ng/mL (>250 nmol/L) Performed By: #### L 503.0106, L506.1001 #### [facility] [address] [place], [address] Laboratory - Chemistry and C hemistry - challengeOrdered By: Haydee Flynn on 10-17-2024 Cobalamin (Vitamin B12) [Mass/Vol] 431 pg/mL 180-914 [facility] No Panel InformationOrdered By: Haydee Flynn on 10-17-2024 Vitamin D 25-Hydroxy 21.6 ng/mL Low 30-100 [facility] Comment on above: Vitamin D StatusDefi ciency: <20 ng/mL (50nmol/L)Insufficiency: 20-30 ng/mL (50-75 nmol/L)Sufficiency: 30-100 ng/mL (75-250 nmol/L)Toxicity: >100 ng/mL (>250 nmol/L) CBC W/Diff, Automatedon - Absolute Lymph 2.22 X10 3/uL Normal 0.83-4.51 [facility] Comment on above: Order Comment: Order Date: 05/21/24Order Info: 0184-1 - CBCDOrder Info: [id number] - SED Performed By: #### L 503.0106, L506.1001 #### [facility] [address] [place], [address] Absolute Neut 2.8 X10 3/uL Normal 2.0-7.7 [facility] Comment on above: Order Comment: Order Date: 05/21/24Order Info: 0184-1 - CBCDOrder Info: [id number] - SED Performed By: #### L 503.0106, L506.1001 #### [facility] [address] [place], [address] Basophils/100 WBC (Bld) 0.4 % Normal 0-1 [facility] Comment on above: Order Comment: Order Date: 05/21/24Order Info: 0184-1 - CBCDOrder Info: [id number] - SED Performed By: #### L 503.0106, L506.1001 #### [facility] [address] [place], [address] Eosinophils/100 WBC (Bld) 1.6 % Normal 0-5 [facility] Comment on above: Order Comment: Order Date: 05/21/24Order Info: 183- - CBCDOrder Info: [id number] - SED Performed By: #### L 503.0106, L506.1001 #### [facility] [address] [place], [address] Erythrocyte distribution width (RBC) [Ratio] 13.0 % Normal 11.6-14.6 [facility] Comment on above: Order Comment: Order Date: 05/21/24Order Info: 183-08 - CBCDOrder Info: [id number] - SED Performed By: #### L 503.0106, L506.1001 #### [facility] [address] [place], [address] Hematocrit (Bld) [Volume fraction] 38.5 % Normal 37-47 [facility] Comment on above: Order Comment: Order Date: 05/21/24Order Info: 183-08 - CBCDOrder Info: [id number] - SED Performed By: #### L 503.0106, L506.1001 #### [facility] [address] [place], [address] Hemoglobin (Bld) [Mass/Vol] 12.5 g/dL Normal 12.0-15.0 [facility] Comment on above: Order Comment: Order Date: 05/21/24Order Info: 183-08 - CBCDOrder Info: [id number] - SED Performed By: #### L 503.0106, L506.1001 #### [facility] [address] [place], [address] IG% 0.200 Normal 0.0-0.9 [facility] Comment on above: Order Comment: Order Date: 05/21/24Order Info: 183-1 - CBCDOrder Info: [id number] - SED Result Comment: IG% - Immature Granulocytes (promyelocytes, myelocytes and metamyelocytes) > 1% indicates that a LEFT SHIFT is Present. Performed By: #### L 503.0106, L506.1001 #### [facility] [address] [place], [address] Lymphocytes/100 WBC (Bld) 40.6 % Normal 19-41 [facility] Comment on above: Order Comment: Order Date: 05/21/24Order Info: 183- - CBCDOrder Info: [id number] - SED Performed By: #### L 503.0106, L506.1001 #### [facility] [address] [place], [address] MCH (RBC) [Entitic mass] 27.5 pg Normal 27.0-32.0 [facility] Comment on above: Order Comment: Order Date: 05/21/24Order Info: 183- - CBCDOrder Info: [id number] - SED Performed By: #### L 503.0106, L506.1001 #### [facility] [address] [place], [address] MCHC (RBC) [Mass/Vol] 32.5 g/dL Normal 32-36 [facility] Comment on above: Order Comment: Order Date: 05/21/24Order Info: 183- - CBCDOrder Info: [id number] - SED Performed By: #### L 503.0106, L506.1001 #### [facility] [address] [place], [address] MCV (RBC) [Entitic vol] 84.8 fL Normal 81-99 [facility] Comment on above: Order Comment: Order Date: 05/21/24Order Info: 183-1 - CBCDOrder Info: 13576-4 - SED Performed By: #### L 503.0106, L506.1001 #### [facility] [address] [place], [address] Monocytes/100 WBC (Bld) 6.6 % Normal 0-10 [facility] Comment on above: Order Comment: Order Date: 05/21/24Order Info: 183- - CBCDOrder Info: [id number] - SED Performed By: #### L 503.0106, L506.1001 #### [facility] [address] [place], [address] Neutrophils/100 WBC (Bld) 50.6 % Normal 47-70 [facility] Comment on above: Order Comment: Order Date: 05/21/24Order Info: 183- - CBCDOrder Info: [id number] - SED Performed By: #### L 503.0106, L506.1001 #### [facility] [address] [place], [address] Nucleated RBC (Bld) [#/Vol] 0 10*3/uL Normal 0-5 [facility] Comment on above: Order Comment: Order Date: 05/21/24Order Info: 183- - CBCDOrder Info: [id number] - SED Performed By: #### L 503.0106, L506.1001 #### [facility] [address] [place], [address] Platelet mean volume (Bld) [Entitic vol] 9.5 fL Normal 6.2-12.0 [facility] Comment on above: Order Comment: Order Date: 05/21/24Order Info: 183- - CBCDOrder Info: [id number] - SED Performed By: #### L 503.0106, L506.1001 #### [facility] [address] [place], [address] Platelets (Bld) [#/Vol] 229 10*3/uL Normal 150-450 [facility] Comment on above: Order Comment: Order Date: 05/21/24Order Info: 183- - CBCDOrder Info: [id number] - SED Performed By: #### L 503.0106, L506.1001 #### [facility] [address] [place], [address] RBC (Bld) [#/Vol] 4.54 10*6/uL Normal 4.2-5.4 [facility] Comment on above: Order Comment: Order Date: 05/21/24Order Info: 183- - CBCDOrder Info: [id number] - SED Performed By: #### L 503.0106, L506.1001 #### [facility] [address] [place], [address] RDW SD 39.8 fl Normal 35.1-43.9 [facility] Comment on above: Order Comment: Order Date: 05/21/24Order Info: 183- - CBCDOrder Info: [id number] - SED Performed By: #### L 503.0106, L506.1001 #### [facility] [address] [place], [address] WBC (Bld) [#/Vol] 5.5 10*3/uL Normal 4.4-11.0 [facility] Comment on above: Order Comment: Order Date: 05/21/24Order Info: 183- - CBCDOrder Info: [id number] - SED Performed By: #### L 503.0106, L506.1001 #### [facility] [address] [place], [address] Comprehensive Metabolic Prof ilon 05-21-2024 Albumin [Mass/Vol] 3.9 g/dL Normal 3.2-5.0 [facility] Comment on above: Order Comment: Order Date: 05/21/24 Order Info: 0786-1 - CMP Order Info: 3084-1 - URIC Order Info: 3016-3 - TSH Performed By: #### L 501.9520, L100.0100, L101.9900, L506.1000, L500.4050 #### [facility] [address] [place], [address] Albumin/Globulin [Mass ratio] 1.0 {ratio} Normal 0.9-2.4 [facility] Comment on above: Order Comment: Order Date: 05/21/24 Order Info: 0786-1 - CMP Order Info: 3083-08 - URIC Order Info: 3015-10 - TSH Performed By: #### L 501.9520, L100.0100, L101.9900, L506.1000, L500.4050 #### [facility] [address] [place], [address] ALK P 97 U/L Normal 45-117 [facility] Comment on above: Order Comment: Order Date: 05/21/24 Order Info: 0786 - CMP Order Info: 3083-08 - URIC Order Info: 3015-10 - TSH Performed By: #### L 501.9520, L100.0100, L101.9900, L506.1000, L500.4050 #### [facility] [address] [place], [address] ALT [Catalytic activity/Vol] 61 U/L High 13-56 [facility] Comment on above: Order Comment: Order Date: 05/21/24 Order Info: 0786- - CMP Order Info: 3083-08 - URIC Order Info: 3015-10 - TSH Performed By: #### L 501.9520, L100.0100, L101.9900, L506.1000, L500.4050 #### [facility] [address] [place], [address] AST [Catalytic activity/Vol] 41 U/L High 15-37 [facility] Comment on above: Order Comment: Order Date: 05/21/24 Order Info: 0786-1 - CMP Order Info: 3083-08 - URIC Order Info: 3015-10 - TSH Performed By: #### L 501.9520, L100.0100, L101.9900, L506.1000, L500.4050 #### [facility] [address] [place], [address] Bilirubin [Mass/Vol] 0.50 mg/dL Normal 0.20-1.00 [facility] Comment on above: Order Comment: Order Date: 05/21/24 Order Info: 785- - CMP Order Info: 3083-08 - URIC Order Info: 3015-10 - TSH Result Comment: For patients on eltrombopag therapy, use of Dimension [place] TBIL is not recommended. Performed By: #### L 501.9520, L100.0100, L101.9900, L506.1000, L500.4050 #### [facility] [address] [place], [address] BUN/CRE 11.3 RATIO Normal 10-20 [facility] Comment on above: Order Comment: Order Date: 05/21/24 Order Info: 07 - CMP Order Info: 3083-08 - URIC Order Info: 3015-10 - TSH Performed By: #### L 501.9520, L100.0100, L101.9900, L506.1000, L500.4050 #### [facility] [address] [place], [address] CA,Total 9.3 mg/dL Normal 8.5-10.1 [facility] Comment on above: Order Comment: Order Date: 05/21/24 Order Info: 07 - CMP Order Info: 3083-08 - URIC Order Info: 3015-10 - TSH Performed By: #### L 501.9520, L100.0100, L101.9900, L506.1000, L500.4050 #### [facility] [address] [place], [address] Chloride [Moles/Vol] 106 mmol/L Normal 98-107 [facility] Comment on above: Order Comment: Order Date: 05/21/24 Order Info: 785-08 - CMP Order Info: 3083-08 - URIC Order Info: 3015-10 - TSH Performed By: #### L 501.9520, L100.0100, L101.9900, L506.1000, L500.4050 #### [facility] [address] [place], [address] CO2 [Moles/Vol] 26.0 mmol/L Normal 21.0-32.0 [facility] Comment on above: Order Comment: Order Date: 05/21/24 Order Info: 785-08 - CMP Order Info: 3083-08 - URIC Order Info: 3015-10 - TSH Performed By: #### L 501.9520, L100.0100, L101.9900, L506.1000, L500.4050 #### [facility] [address] [place], [address] Creatinine [Mass/Vol] 0.70 mg/dL Normal 0.55-1.02 [facility] Comment on above: Order Comment: Order Date: 05/21/24 Order Info: 785-08 - CMP Order Info: 3083-08 - URIC Order Info: 3015-10 - TSH Result Comment: The validity of the calculated GFR GFRAA in patients over 70 years has not been determined. Clinical correlation is essential. Performed By: #### L 501.9520, L100.0100, L101.9900, L506.1000, L500.4050 #### [facility] [address] [place], [address] EST GFR - AA 107 mL/min Normal >60 [facility] Comment on above: Order Comment: Order Date: 05/21/24 Order Info: 1 - CMP Order Info: 3083-08 - URIC Order Info: 3015-10 - TSH Result Comment: Afri can [place] GFR Calc Performed By: #### L 501.9520, L100.0100, L101.9900, L506.1000, L500.4050 #### [facility] [address] [place], [address] GAP 6 Normal 5-15 [facility] Comment on above: Order Comment: Order Date: 05/21/24 Order Info: 785-08 - CMP Order Info: 3083-08 - URIC Order Info: 301-3 - TSH Performed By: #### L 501.9520, L100.0100, L101.9900, L506.1000, L500.4050 #### [facility] [address] [place], [address] GFR/1.73 sq M.predicted among non-blacks MDRD (S/P/Bld) [Vol rate/Area] 89 mL/min/{1.73_m2} Normal >60 [facility] Comment on above: Order Comment: Order Date: 05/21/24 Order Info: 785-08 - CMP Order Info: 3083-08 - URIC Order Info: 3015-3 - TSH Result Comment: Non- GFR Calc Performed By: #### L 501.9520, L100.0100, L101.9900, L506.1000, L500.4050 #### [facility] [address] [place], [address] Globulin (S) [Mass/Vol] 3.8 g/dL Normal 2.2-4.[address] [facility] Comment on above: Order Comment: Order Date: 05/21/24 Order Info: 785-08 - CMP Order Info: 3083-08 - URIC Order Info: 6-3 - TSH Performed By: #### L 501.9520, L100.0100, L101.9900, L506.1000, L500.4050 #### [facility] [address] [place], [address] Glucose [Mass/Vol] 91 mg/dL Normal 74-106 [facility] Comment on above: Order Comment: Order Date: 05/21/24 Order Info: 785-08 - CMP Order Info: 3083-08 - URIC Order Info: 3015-10 - TSH Performed By: #### L 501.9520, L100.0100, L101.9900, L506.1000, L500.4050 #### [facility] [address] [place], [address] Potassium [Moles/Vol] 3.8 mmol/L Normal 3.5-5.1 [facility] Comment on above: Order Comment: Order Date: 05/21/24 Order Info: 785-08 - CMP Order Info: 3083-08 - URIC Order Info: 3015-10 - TSH Performed By: #### L 501.9520, L100.0100, L101.9900, L506.1000, L500.4050 #### [facility] [address] [place], [address] Sodium [Moles/Vol] 139 mmol/L Normal 136-145 [facility] Comment on above: Order Comment: Order Date: 05/21/24 Order Info: 785-08 - CMP Order Info: 3083-08 - URIC Order Info: 3015-10 - TSH Performed By: #### L 501.9520, L100.0100, L101.9900, L506.1000, L500.4050 #### [facility] [address] [place], [address] T PROT 7.7 g/dL Normal 6.4-8.2 [facility] Comment on above: Order Comment: Order Date: 05/21/24 Order Info: 0786 - CMP Order Info: 3083-08 - URIC Order Info: 3015-10 - TSH Performed By: #### L 501.9520, L100.0100, L101.9900, L506.1000, L500.4050 #### [facility] [address] [place], [address] Urea nitrogen [Mass/Vol] 8 mg/dL Normal 7-18 [facility] Comment on above: Order Comment: Order Date: 05/21/24 Order Info: 0786-1 - CMP Order Info: 3084-1 - URIC Order Info: 3016-3 - TSH Performed By: #### L 501.9520, L100.0100, L101.9900, L506.1000, L500.4050 #### [facility] [address] [place], [place], [address] Erythrocyte Sed Rateon 05-21 SED RATE 14 mm/hr Normal 0-30 [facility] Comment on above: Order Comment: Order Date: 05/21/24Order Info: 0184-1 - CBCDOrder Info: 04555-2 - SED Performed By: #### L 503.0106, L506.1001 #### [facility] [address] [place], [place], [address] Thyroid Stim Hormone (TSH)on 05-21-2024 TSH 0.461 uIU/mL Normal 0.358-3.740 [facility] Comment on above: Order Comment: Order Date: 05/21/24 Order Info: 0786-1 - CMP Order Info: 3084-1 - URIC Order Info: 3016-3 - TSH Performed By: #### L 501.9520, L100.0100, L101.9900, L506.1000, L500.4050 #### [facility] [address] [place], [place], [address] Uric Acidon 05-21-2024 URIC 7.4 mg/dL High 2.6-6.0 [facility] Comment on above: Order Comment: Order Date: 05/21/24 Order Info: 2132-9 - B12 Order Info: 78612-8 - VITD25 Result Comment: The drugs N-Acetylcysteine and Metamizole may falsely depress this assay. Performed By: #### L 503.0105 #### [facility] [address] [place], [address] Vitamin B12on 05-21-2024 Cobalamin (Vitamin B12) [Mass/Vol] 333 pg/mL Normal 211-911 [facility] Comment on above: Order Comment: Order Date: 05/21/24 Order Info: 9 - B12 Order Info: 08006-2 - VITD25 Performed By: #### L 503.0105 #### [facility] [address] [place], [address] Vitamin D,25 Hydroxyon 05-21 Vitamin D 25-OH 30.4 ng/mL Normal [facility] Comment on above: Order Comment: Order Date: 05/21/24 Order Info: 2131-9 - B12 Order Info: 12547-9 - VITD25 Result Comment: Isabel min D 25(OH) Status Range Deficiency <20 ng/mL (50nmol/L) Insufficiency 20 - 30 ng/mL (50 - 75 nmol/L) Sufficiency 30 - 100 ng/mL (75 - 250 nmol/L) Toxicity >100 ng/mL (>250 nmol/L) Performed By: #### L 501.9520, L100.0100, L101.9900, L506.1000, L500.4050 #### [facility] [address] [place], [address] Office Visiton 04-30-2024 Follow-up visit [id number] Yvonne Allen 1960 F Date Provider Department Center 04/30/2024 [facility] U[facility] None Family History Problem Relation Age of Onset Hypertension Father Heart disease Father Heart disease Mother Heart attack Mother Stroke Mother Uterine cancer Paternal Grandmother Heart attack Maternal Grandmother Diabetes Maternal Grandmother Family Status - Relation Status Age at Father Mother Paternal Grandmother Maternal Grandmother Level of Service:30775 [place] POSTOP FOLLOW UP VISIT RELATED TO ORIGINAL PX Reason for Visit and Comments: Post-op [483] Normal [facility] Progress Noteon 04-30-2024 Progress Note Female Pelvic Medicine & Reconstructive Surgery Post-Op Visit Yvonne Allen is a 64 y.o. female who presents for a 6 week post-op check s/p: Dr. Funes Robotic hysterectomy BSO, bilateral identification of sentinel lymph nodes, bilateral pelvic lymph node dissection Dr. Bhavik Hilario's culdoplasty Anterior colporrhaphy [employer] Obtryx II transobturator midurethral sling Cystourethroscopy Rectocele repair with perineorrhaphy PFDI-20 Do you: Usually experience pressure in the lower abdomen? Yes 2 Usually experience heaviness or dullness in the pelvic area? Yes 2 Usually have a bulge or something falling out that you can see or feel in your vaginal area? No 0 Ever have to push on the vagina or around the rectum to have or complete a bowel movement? No 0 Usually experience a feeling of incomplete bladder emptying? Yes 2 Ever have to push up on a bulge in the vaginal area with your fingers to start or complete urination? No 0 Feel you need to strain too hard to have a bowel movement? No 0 Feel you have not completely emptied your bowels at the end of a bowel movement? No 0 Usually lose stool beyond your control if your stool is well formed? No 0 Usually lose stool beyond your control if your stool is loose? No 0 Usually lose gas from the rectum beyond your control? No 0 Usually have pain when you pass your stool? Yes 2 Experience a strong sense of urgency and have to mcclelland to the bathroom to have a bowel movement? No 0 Does part of your bowel ever pass through the rectum and bulge outside during or after a bowel movement? No 0 Usually experience frequent urination? Yes 2 Usually experience urine leakage associated with a feeling of urgency, that is, a strong sensation of needing to go to the bathroom? Yes 2 Usually experience urine leakage related to coughing, sneezing or laughing? No 0 Usually experience small amounts of urine leakage (that is, drops)? Yes 2 Usually experience difficulty emptying your bladder? Yes 2 Usually experience pain or discomfort in the lower abdomen or genital region? Yes 2 Warp Hauler: Monique Leon MA OBJECTIVE: BP (!) 180/106 Pulse 76 General Appearance: no acute distress, normally developed, and affect appropriate Pelvic: External Genitalia: mild perineal TTP, incision well healed with dissolving suture material present Vagina: cuff intact without visible or palpable defects, incisions well healed with dissolving suture material present, no visible or palpable sling mesh, small amount of bleeding from cuff with exam Cervix: surgically absent Urethra: normal appearing urethra with no masses, tenderness or lesions Bimanual: no palpable masses or tenderness, no cuff defects Rectovaginal: deferred Levator Ani Contraction: 1 Levator Ani Tone: normal Levator Ani Tenderness: Yes mild bilateral Procedure: The urethra was prepped with betadine. A lubricated 14F catheter was inserted and the postvoid residual urine was collected. The PVR was 40 ml. Urine dip - straight cath: neg ASSESMENT: Yvonne Allen is a 64 y.o. who is s/p: Robotic hysterectomy BSO, bilateral identification of sentinel lymph nodes, bilateral pelvic lymph node dissection Sulaiman[employer]yesica culdoplasty Anterior colporrhaphy [employer] Obt[employer]x II transobturator midurethral sling Cystourethroscopy Rectocele repair with perineorrhaphy PLAN: 1. Postop check Normal postop exam May resume normal activity Continue pelvic rest until 12 weeks postop Ok to return to work without restrictions 2. OAB (overactive bladder) Discussed PMEs, lifestyle/behavioral modifications Follow up in 3 months or sooner prn Ciera Charles MD [facility] Office Visiton 04-13-2024 Follow-up visit [id number] Yvonne Allen 1960 F Date Provider Department Center 04/13/2024 [id number][facility] URO None Family History Problem Relation Age of Onset Hypertension Father Heart disease Father Heart disease Mother Heart attack Mother Stroke Mother Uterine cancer Paternal Grandmother Heart attack Maternal Grandmother Diabetes Maternal Grandmother Family Status - Relation Status Age at Father Mother Paternal Grandmother Maternal Grandmother Level of Service:97992 [place] POSTOP FOLLOW UP VISIT RELATED TO ORIGINAL PX Reason for Visit and Comments: Post-op [483] [facility] Progress Noteon 04-13-2024 Progress Note Female Pelvic Medicine & Reconstructive Surgery, Post-Op Problem Visit Yvonne Allen is a 64 y.o. who presents for a postoperative problem. She is 3.5 week(s) s/p: 03/20/24 Dr. Funes Robotic hysterectomy BSO, bilateral identification of sentinel lymph nodes, bilateral pelvic lymph node dissection Dr. Bhavik Hilario'yesica culdoplasty Anterior colporrhaphy [employer] Obt[employer] II transobturator midurethral sling Cystourethroscopy Rectocele repair with perineorrhaphy History: Here for recheck of vaginal cuff defect noted on recent postop exam with Dr. Funes. 04/04/24: On vaginal exam the anterior and posterior vaginal incisions are healing well. Small amount of drainage but no evidence of active bleeding. At the top of the vaginal cuff there is a small approximately dime sized defect with a small area of somewhat infarcted epiploica fat coming through. No evidence of any bowel prolapse. No active bleeding noted. Warp Hauler: Monique Leon MA OBJECTIVE: BP (!) 150/88 Pulse 72 General Appearance: no acute distress, normally developed, and affect appropriate Abdomen: abdomen is soft without significant tenderness, masses, organomegaly or guarding. Incisions well healed without erythema, induration, or drainage Pelvic: External Genitalia: normal appearing vulva with no masses, tenderness, or lesions, left groin incision suture removed, one suture remains but is partially epithelialized Vagina: good support. Vaginal incisions intact. At the right apex there appears to be a fold of redundant epithelium. Small amount of blood cleared with Fuentes swabs. No visible or palpable defects in the cuff. Urethra: normal appearing urethra with no masses, tenderness or lesions Bimanual: no palpable cuff defect Procedure: The urethra was prepped with betadine. A lubricated 14F catheter was inserted and the postvoid residual urine was collected. The PVR was 20 ml. Urine dip - straight cath: neg IMPRESSION: Yvonne Allen is a 64 y.o. who is postop s/p: 03/20/24 Dr. Funes Robotic hysterectomy BSO, bilateral identification of sentinel lymph nodes, bilateral pelvic lymph node dissection Dr. Bhavik Hilario'yesica culdoplasty Anterior colporrhaphy [employer] Obt[employer]x II transobturator midurethral sling Cystourethroscopy Rectocele repair with perineorrhaphy PLAN: 1. Postop check - Exam findings reviewed and discussed with pt. Vaginal cuff intact on exam today, no visible or palpable defect. - Precautions reviewed and discussed - Keep postop visit as scheduled, continue restrictions, pelvic rest - POCT urinalysis dipstick Ciera Charles MD Normal [facility] Urinalysis macro (dipstick) panel (U)Ordered By: Monique Leon on 04-13-2024 Bil[facility], [facility]A [facility], [facility] Negative [facility] Glucose, UA Negative [facility] Interpretation and review of laboratory results Normal [facility] Ketones, POC (mg/dL) Negative [facility] Leukocytes, UA Negative [facility] th Nitrite, UA Negative [facility] pH, UA 7.0 [facility] Protein, UA Negative [facility] Spec Grav, UA 1.[address] [facility]ilin[facility], [facility]2 [facility] 36on 04-05-2024 36 From: Ciera Charles MD Sent: 04/04/2024 2:24 PM EDT To: Emily Robledo MA; Monique Leon MA Please have pt see me for a postop visit next week, and keep her regular postop visit as scheduled. Thanks! [facility] Office Visiton 04-04-2024 Follow-up visit [id number] Yvonne Allen 1960 F Date Provider Department Center 04/04/2024 [id number] FUNES [facility] None Family History Problem Relation Age of Onset Hypertension Father Heart disease Father Heart disease Mother Heart attack Mother Stroke Mother Uterine cancer Paternal Grandmother Heart attack Maternal Grandmother Diabetes Maternal Grandmother Family Status - Relation Status Age at Father Mother Paternal Grandmother Maternal Grandmother Level of Service:09282 ND POSTOP FOLLOW UP VISIT RELATED TO ORIGINAL PX Reason for Visit and Comments: Post-op Visit [559] [facility] Progress Noteon 04-04-2024 Progress Note Postop visit Patient underwent robotic hysterectomy BSO lymph node sampling for endometrial adenocarcinoma as well as vaginal repair for prolapse. Patient states she is slowly getting better but is still having a lot of a cramping sensation in the pelvic area as well as some dark brown bloody drainage that has been resolving. She denies any fever chills or sweats. Denies any nausea or vomiting. A. SENTINEL LYMPH NODES, LEFT PELVIC, EXCISION: - TWO NEGATIVE LYMPH NODES (0/2) B. SENTINEL LYMPH NODE, RIGHT PELVIC, EXCISION: - ONE NEGATIVE LYMPH NODE (0/1) C. UTERUS, CERVIX, TUBES AND OVARIES, HYSTERECTOMY WITH BILATERAL SALPINGO-OOPHORECTOM Y: - INVASIVE WELL-DIFFERENTIATED (FIGO GRADE 1) ENDOMETRIAL ENDOMETRIOID ADENOCARCINOMA - LEIOMYOMA at 1018 Synoptic Checklist ENDOMETRIUM 8th Edition - Protocol posted: 08/03/2023ENDOMETRIU M - All Specimens SPECIMEN Procedure Total hysterectomy and bilateral salpingo-oophorectom y TUMOR Histologic Type Endometrioid carcinoma, NOS Histologic Grade FIGO grade 1 Myometrial Invasion Present Depth of Myometrial Invasion 3 mm Myometrial Thickness 20 mm Percentage of Myometrial Invasion 15 % Uterine Serosa Involvement Not identified Lower Uterine Segment Involvement Not identified Cervical Stromal Involvement Not identified Other Tissue / Organ Involvement Not identified Lymphatic and / or Vascular Invasion Not identified REGIONAL LYMPH NODES Regional Lymph Node Status All regional lymph nodes negative for tumor cells Lymph Nodes Examined Total Number of Pelvic Nodes Examined 3 Number of Pelvic Scio Nodes Examined 3 Total Number of Para-aortic Nodes Examined 0 Number of Para-aortic Scio Nodes Examined 0 pTNM CLASSIFICATION (AJCC 8th Edition) Reporting of pT, pN, and (when applicable) pM categories is based on information available to the pathologist at the time the report is issued. As per the AJCC (Chapter 1, 8th Ed.) it is the managing physician?s responsibility to establish the final pathologic stage based upon all pertinent information, including but potentially not limited to this pathology report. pT Category pT1a pN Category pN0 N Suffix (sn) FIGO STAGE FIGO Stage IA2 . MLH1: Intact nuclear expression MSH2: Intact nuclear expression MSH6: Intact nuclear expression PMS2: Intact nuclear expression On exam the abdominal incisions are healing beautifully. On vaginal exam the anterior and posterior vaginal incisions are healing well. Small amount of drainage but no evidence of active bleeding. At the top of the vaginal cuff there is a small approximately dime sized defect with a small area of somewhat infarcted epiploica fat coming through. No evidence of any bowel prolapse. No active bleeding noted. A) stage I A2 grade grade 1 endometrial cancer. A low risk for disease recurrence Small vaginal cuff defect P) follow-up with Dr. Lopez every 6 months for 5 years and annually thereafter for vaginal and pelvic exam. I will discuss the case with urogynecology to see if the patient should be seen sooner for their postop exam. Currently is not scheduled till later in April. Recommended the patient that she continue vaginal rest, most likely the small defect in the vaginal cuff will granulate in on its own. I did tell her to call me if she would have any increasing abdominal or pelvic pain, nausea, vomiting or fever. [facility] 36on 03-27-2024 36 Called office, having difficulties with their fax number. Mailed out the pathology results [facility] 36 ----- Message from Reinaldo Funes MD sent at 03/23/2024 3:06 PM EDT ----- Kyra fax to Dr lopez in [place] ----- Message ----- From: [employer] Automated User, Chapis Sent: 03/23/2024 10:18 AM EDT To: Reinaldo Funes MD [facility] 36on 03-23-2024 36 Called with good news on path [facility] ECG 12-LEADon 03-21-2024 ECG 12-LEAD IMPRESSION: Sinus rhythm Low voltage, precordial leads Borderline T abnormalities, anterior leads Electronically Signed On 03-21-2024 17:31:07 EDT by Reinaldo Fox [facility] ABO and Rh group Confirm Nom (Bld)on 03-20-2024 ABO group Nom (Bld) A [facility] D Ag Ql (RBC) Positive [facility] BASIC METABOLIC PANELon 07-3 Anion gap [Moles/Vol] 8 mmol/L Normal 3-13 [facility] Comment on above: Performed By: #### L AB15 ####Network Architect Manager: ZOE CHRISTIAN ([id number])[facility] ([facility])[address] [place] [address] Calcium [Mass/Vol] 9.2 mg/dL Normal 8.4-10.4 [facility] Comment on above: Performed By: #### L AB15 ####Network Architect Manager: ZOE CHRISTIAN ([phone])[facility] ([facility])[address] [place] [address] [place] Chloride [Moles/Vol] 103 mmol/L Normal 98-107 [facility] Comment on above: Performed By: #### L AB15 ####Network Architect Manager: ZOE CHRISTIAN ([phone])[facility] ([facility])[address] [place] [address] [place] CO2 [Moles/Vol] 24 mmol/L Normal 22-30 [facility] Comment on above: Performed By: #### L AB15 ####Network Architect Manager: ZOE CHRISTIAN ([phone])[facility])[address] [place] [address] Creatinine [Mass/Vol] 0.64 mg/dL Normal 0.52-1.04 [facility] Comment on above: Performed By: #### L AB15 ####Network Architect Manager: ZOE CHRISTIAN ([phone])[facility])[address] [place] [address] GLOMERULAR FILTRATION RATE ML/MIN/1.73 SQ M.PREDICTED >90.0 Normal >60.0 [facility] Comment on above: Result Comment: Calc ulation based on the Chronic Kidney Disease Epidemiology Collaboration (CKD-EPI) equation refit without adjustment for race Performed By: #### L AB15 ####Network Architect Manager: ZEO CHRISTIAN ([id number])[facility] ([facility])[address] [place] [address] Glucose [Mass/Vol] 117 mg/dL High 70-100 [facility] Comment on above: Performed By: #### L AB15 ####Network Architect Manager: ZOE CHRISTIAN ([phone])[facility])[address] [place] [address] Potassium [Moles/Vol] 3.9 mmol/L Normal 3.5-5.1 [facility] Comment on above: Performed By: #### L AB15 ####Network Architect Manager: ZOE CHRISTIAN ([phone])[facility])[address] [place] [address] [place] Sodium [Moles/Vol] 135 mmol/L Normal 135-145 [facility] Comment on above: Performed By: #### L AB15 ####Network Architect Manager: ZOE CHRISTIAN ([phone])[facility])[address] [place] [address] [place] Urea nitrogen [Mass/Vol] 14 mg/dL Normal 7-17 [facility] Comment on above: Performed By: #### L AB15 ####Network Architect Manager: ZOE CHRISTIAN ([phone])[facility] ([facility])[address] [place] [address] BLOOD TYPE AND SCREEN GELon 03-20-2024 ABO GROUPING A [facility] Comment on above: Order Comment: HOLD. Specimen is valid for 3 days - nurse to verify valid specimen Performed By: #### L AB276 ####Network Architect Manager: ZOE CHRISTIAN ([id number])[facility] ([facility])[address] [place] [address] RH TYPE IN BLOOD Positive Normal [facility] Comment on above: Order Comment: HOLD. Specimen is valid for 3 days - nurse to verify valid specimen Performed By: #### L AB276 ####Network Architect Manager: ZOE CHRISTIAN ([phone])[facility] ([facility])[address] [place] [address] Basic metabolic 1998 panelon 03-20-2024 Anion gap [Moles/Vol] 8 mmol/L 3 - 13 mmol/L [facility] Calcium [Mass/Vol] 9.2 mg/dL 8.4 - 10. 4 mg/dL [facility] Chloride [Moles/Vol] 103 mmol/L 98 - 10 7 mmol/L [facility] CO2 [Moles/Vol] 24 mmol/L 22 - 30 mmol/L [facility] Creatinine [Mass/Vol] 0.64 mg/dL 0.52 - 1.04 mg/dL [facility] GFR/1.73 sq M.predicted (S/P/Bld) [Vol rate/Area] - PINF [facility] Comment on above: Calculation based on the Chronic Kidney Disease Epidemiology Collaboration (CKD-EPI) equation refit without adjustment for race Glucose [Mass/Vol] 117 mg/dL High 70 - 100 mg/dL [facility] Interpretation and review of laboratory results Abnormal [facility] Potassium [Moles/Vol] 3.9 mmol/L 3.5 - 5.1 mmol/L [facility] Sodium [Moles/Vol] 135 mmol/L 135 - 145 mmol/L [facility] Urea nitrogen [Mass/Vol] 14 mg/dL 7 - 17 mg/d L [facility] Blood type and Crossmatch tapan calvert (Bld)on 03-20-2024 ABO group Nom (Bld) A [facility] Blood group antibody screen GEL Ql Negative [facility] D Ag Ql (RBC) [facility] CBC (HEMOGRAM)on 03-20-2024 Erythrocyte distribution width (RBC) [Ratio] 13.0 % Normal 11.5-15.0 [facility] Comment on above: Performed By: #### L AB294 #### Network Architect Manager: ZOE CHRISTIAN ([id number]) [facility]) [address] [place] [address] Hematocrit (Bld) [Volume fraction] 37.7 % Normal 35.0-47.0 [facility] Comment on above: Performed By: #### L AB294 #### Network Architect Manager: ZOE CHRISTIAN ([phone]) [facility]) [address] [place] [address] Hemoglobin (Bld) [Mass/Vol] 12.5 g/dL Normal 11.7-16.0 [facility] Comment on above: Performed By: #### L AB294 #### Network Architect Manager: ZOE CHRISTIAN ([phone]) [facility]) [address] [place] [address] MCH (RBC) [Entitic mass] 27.6 pg Normal 26.0-34.0 [facility] Comment on above: Performed By: #### L AB294 #### Network Architect Manager: ZOE CHRISTIAN ([phone]) [address] MCHC 33.2 % Normal 30.5-36.0 [facility] Comment on above: Performed By: #### L AB294 #### Network Architect Manager: ZOE [id number]) [address] MCV (RBC) [Entitic vol] 83.2 fL Normal 77.0-99.0 S [facility] Comment on above: Performed By: #### L AB294 #### Network Architect Manager: ZOE [id number]) [facility]) [address] [place] [address] Platelet mean volume (Bld) [Entitic vol] 9.4 fL Normal 9.0-12.7 [facility] Comment on above: Performed By: #### L AB294 #### Network Architect Manager: ZOE CHRISTIAN ([id number]) [facility] ([facility]) [address] [place] [address] Platelets (Bld) [#/Vol] 222 10*3/uL Normal 140-440 [facility] Comment on above: Performed By: #### L AB294 #### Network Architect Manager: ZOE CHRISTIAN ([id number]) [facility] ([facility]) [address] [place] [address] RBC (Bld) [#/Vol] 4.53 10*6/uL Normal 3.80-5.20 [facility] Comment on above: Performed By: #### L AB294 #### Network Architect Manager: ZOE CHRISTIAN ([id number]) [facility] ([facility]) [address] [place] [address] WBC (Bld) [#/Vol] 5.4 10*3/uL Normal 3.6-10.7 [facility] Comment on above: Performed By: #### L AB294 #### Network Architect Manager: ZOE CHRISTIAN ([id number]) [facility] ([facility]) [address] [place] [address] CBC panel Auto (Bld)on 03-20 Erythrocyte distribution width (RBC) [Ratio] 13.0 % 11.5 - 15.0 % [facility] Hematocrit (Bld) [Volume fraction] 37.7 % 35.0 - 47.0 % [facility] Hemoglobin (Bld) [Mass/Vol] 12.5 g/dL 11.7 - 16.0 g/dL [facility] Interpretation and review of laboratory results Normal [facility] MCH (RBC) [Entitic mass] 27.6 pg 26. 0 - 34.0 pg [facility] MCHC (RBC) [Mass/Vol] 33.2 % 30.5 - 36.0 % [facility] MCV (RBC) [Entitic vol] 83.2 fL 77.0 - 99.0 fL [facility] Platelet mean volume (Bld) [Entitic vol] 9.4 fL 9.0 - 12.7 fL [facility] Platelets (Bld) [#/Vol] 222 10*3/uL 140 - 440 10*3/uL [facility] RBC (Bld) [#/Vol] 4.53 10*6/uL 3.80 - 5.2 0 10*6/uL [facility] WBC (Bld) [#/Vol] 5.4 10*3/uL 3.6 - 10.7 10*3/uL [facility] Nursing Noteon 03-20-2024 Nursing Note Pt up to rest room with assist, urinated approx 320ml in hat. Residual check completed with 4 scans, max scan of 8ml. Pt states she is ready to get dressed and go home [facility] Nursing Note Patient resting comfortably, still emerging from anesthesia, ambulation was encouraged but patient unwilling at this time. [facility] Op Noteon 03-20-2024 Op Note Date of surgery 03/20/2024 Preoperative diagnosis endometrial cancer Postop diagnosis same uterine leiomyoma Procedure robotic hysterectomy BSO, bilateral identification of sentinel lymph nodes, bilateral pelvic lymph node dissection Surgeon Marin Anesthesia General Description of findings; the patient did have a uterine leiomyoma. No evidence of extrauterine disease was found Description of operation patient identified brought to the operating room and after ministration of general anesthetic underwent abdominal perineal vaginal prep using the yellowfin stirrups. She was placed in lithotomy position Timeout was performed antibiotics were given ICG green dye injection of the cervix at 3 and 9:00 Hernandez cath was placed in the bladder manipulated uterus with a Angela ring around the cervix. Using a knife a small incision made in the left upper quadrant using the Optiview 5 mm blunt port the abdominal cavity is entered under direct vision insufflated with CO2 and then under direct vision 3 da Cristel ports were placed across the mid abdomen. Trendelenburg was then used to displace about about the pelvis intra-abdominal expiration was normal and the da Cristel was docked. The round ligaments were coagulated divided the anterior and posterior leaves of the broad ligament open pararectal and paravesical spaces were made using firefly technology sentinel lymph nodes were detected on the right left pelvic sidewalls. There were dissected off the major vessels of the pelvis using monopolar and bipolar cautery. The ovarian vessels then skeletonized above the ureters coagulated and divided. The bladder was dissected inferiorly allowing the uterine vessels be skeletonized coagulated and divided as were the upper cardinal ligaments to the top of the ring. Colpotomy incision was then made in the uterus cervix tubes and ovaries removed out through the vagina. The cuff was left open for urogynecology procedure. Blood loss from eye surgery was less than 50 cc all the ports were removed and the defects and skin were closed with subcuticular 4 Monocryl and Dermabond. Urogynecology took over at this point. All sponges needles and instruments were reported correct at the end of my portion of the case. [facility] Op Note Date: 03/20/2024 Location: [facility] OR Name: Yvonne Allen, : 1960, Diagnosis Pre-op Diagnosis * Incomplete uterovaginal prolapse [N81.2] * Cystocele, midline [N81.11] * Rectocele [N81.6] * STACEY (stress urinary incontinence, female) [N39.3] Post-op Diagnosis * Incomplete uterovaginal prolapse [N81.2] * Cystocele, midline [N81.11] * Rectocele [N81.6] * STACEY (stress urinary incontinence, female) [N39.3] Procedures ROBOTIC ASSISTED TOTAL LAPAROSCOPIC HYSTERECTOMY BILATERAL SALPINGO OOPHORECTOMY 49364 - ND LAPS TOTAL HYSTERECT 250 GM/< W/RMVL TUBE/OVARY BILATERAL PELVIC SENTINEL LYMPH NODE BIOPSY WITH INDOCYANINE GREEN DYE PROTOCOL 99384 - ND INJ RADIOACTIVE TRACER FOR ID OF SENTINEL NODE UTEROSACRAL LIGAMENT SUSPENSION 73712 - ND COLPOPEXY VAGINAL INTRAPERITONEAL APPROACH ANTERIOR REPAIR 67632 - ND ANTERIOR COLPORRAPHY RPR CYSTOCELE W/CYSTO SLING PROCEDURE 66116 - ND SLING OPERATION STRESS INCONTINENCE VAGINAL REPAIR 62625 - ND COLPORRHAPHY SUTURE INJURY VAGINA POSSIBLE POSTERIOR REPAIR 92091 - ND POST COLPORRHAPHY RECTOCELE W/WO PERINEORRHAPHY POSSIBLE ANTERIOR AND POSTERIOR REPAIR 33895 - ND CMBND ANTERPOST COLPORRAPHY W/CYSTO Surgeons Panel 1: * Reinaldo Funes - Primary Panel 2: * Ciera Charles - Primary Procedure Summary Anesthesia: General ASA: II Estimated Blood Loss: Minimal Drains: * None in log * Specimens ID Source Type Tests Collected By Collected At Frozen? Priority Lab ID 1 Lymph Node Tissue TISSUE EXAM Reinaldo Funes MD 03/20/24 1426 No Routine Description: LEFT PELVIC SENTINEL LYMPH NODE 2 Lymph Node Tissue TISSUE EXAM Reinaldo Funes MD 03/20/24 1427 No Routine Description: RIGHT PELVIC SENTINEL LYMPH NODE 3 Uterus Tissue TISSUE EXAM Reinaldo Funes MD 03/20/24 1433 No Routine Description: UTERUS, CERVIX, BILATERAL FALLOPIAN TUBES, AND OVARIES Staff: Retail Administrative Assistant: Nico Jasso RN Relief Retail Administrative Assistant: Tisha Garcia RN Scrub Person: Amos Koehler RN [place] to Circ: Ada Garcia RN Findings: endom cancer Complications: None; patient tolerated the procedure well. Specimens Collected: Order Name Source Comment Collection Info Order Time PROTHROMBIN TIME If patient on coumadin within 4 days prior. 03/20/2024 10:38 AM BASIC METABOLIC PANEL Blood, Venous Collected By: Brit Dominique RN 03/20/2024 10:38 AM CBC (HEMOGRAM) Blood, Venous Collected By: Brit Dominique RN 03/20/2024 10:38 AM BLOOD TYPE AND SCREEN GEL Blood, Venous HOLD. Specimen is valid for 3 days - nurse to verify valid specimen Collected By: Brit Dominique RN 03/20/2024 10:38 AM HCG QUALITATIVE URINE Urine, Clean Catch Discontinue this order if: 1. patient is older than 55 years old 2. has had a prior hysterectomy 3. today's surgery is for treatment of known or suspected ectopic or loss. 4. patient has a known intrauterine but this is a needed surgery. 03/20/2024 10:38 AM TISSUE EXAM Lymph Node GRADE 1 ENDOMETRIAL CANCER, PLEASE DO MMR PROTEIN IHS Collected By: Reinaldo Funes MD 03/20/2024 2:27 PM Wound Class: Class II: Clean-Contaminated Blood Products: None Prophylactic Antibiotics: Procedure appropriate prophylactic antibiotic(s) given within 1 hour of surgical incision (two hours if receiving Vancomycin or flouroquinolone) [facility] 36on 03-19-2024 36 Name of caller: Yvonne Contact phone number: [phone] Relationship to Patient: patient Provider: Bhavik Practice: [facility] Chief Complaint/Reason for Call: Please call pt and let her know if insurance covering her surgery on 03.20 She said Shyanne is supposed to get back to her. Please call pt Best time of day caller can be reached: Patient advised that office/PCP has 24-48 business hours to return their call: [facility] 36on 03-13-2024 36 Pt inquiring if ok to have punch biopsy or any spots frozen off with dermatology tomorrow is ok before surgery 03/20 for robotic hyst. Pt informed ok to keep dermatology appt. [facility] 36 Patient has a mate ship appointment tomorrow and would like to know if a spot is found that needs removed, should she wait until after her surgery with our facility to get that done? Please contact when able, thank you [facility] PREPROCINSon 03-13-2024 PREPROCINS Medication List Accurate as of March 13, 2024 11:47 AM. Always use your most recent med list. Cholecalciferol 50 MCG (1999 UT) chewable tablet Medication Adjustments for Surgery: Hold morning of surgery escitalopram 20 MG tablet Commonly known as: Lexapro Medication Adjustments for Surgery: Take night before surgery lisinopril 40 MG tablet Medication Adjustments for Surgery: Take night before surgery Additional Instructions: No solid food after midnight; drink clear fluids until 2 hours before surgery. Drink 16oz. Clear fluid before arriving at hospital. No broth, jello, orange juice or dairy. You may take Tylenol for pain. NO Motrin, ibuprofen or Advil for 24 hours prior to surgery or longer if instructed by your surgeon. NO Aleve or Naprosyn for 5 days prior to surgery or longer if instructed by your surgeon. DO NOT take aspirin or aspirin containing products for 5 days before surgery, or longer if instructed by your surgeon. Follow any instructions given to you by Dr. Funes/Bhavik. Shower as instructed with the shower kit provided to you at Dr. Funes' office before coming to the hospital. No makeup, lotion, powder, deodorant or body sprays. No hair products. Remove all jewelry and leave it at home. Wear loose comfortable clothing to go home in. You may brush your teeth morning of surgery. Do not wear contacts day of surgery. No marijuana (THC), smoking or alcohol for 24 hours prior to surgery. Please arrange for a responsible adult to drive you home after your surgery and that there is a responsible adult with you for 24 hours post discharge. If you have specific questions, please call your surgeon. You will receive a call the day before your surgery to verify your arrival time and date. You will be asked to arrive at least two hours prior to your scheduled surgery time. We encourage you to write down any questions you may have for the surgeon, anesthesiologist, or other members of the surgical team and bring it with you the day of surgery. Please bring photo ID and insurance information. EDGER TAILER AND PARKING IN THE MAIN DECK ARE FREE DAY OF SURGERY. PARKING IN THE DECK-- AFTER PARKING TAKE THE ELEVATOR TO LEVEL ONE AND TAKE THE BRIDGE TO THE HOSPITAL. GO TO THE RIGHT AND GO AROUND THE CORNER TO THE SAME DAY SURGERY DESK AND CHECK IN THERE. IF GOING IN THE MAIN ENTRANCE-- TURN LEFT AND GO DOWN THE DAVIS TO THE H ELEVATORS AND TAKE THEM TO ONE, LEFT OFF THE ELEVATOR AND GO AROUND TO THE SAME DAY DESK AND CHECK IN. [facility] 36on 02-28-2024 36 PAT by phone 03.13.2024 at 11 am SX: 03.20.2024 at 12:30 pm arrival at 10:30 am post op 04.04.2024 at 1:45 pm Folder and instructions given. [facility] Urinalysis complete panel (U )on 02-28-2024 Appearance (U) [facility]AR [facility] LM.HPF (Urine sed) [#/Area] NONE SEEN NONE SEEN /HPF [facility] Bilirubin Ql (U) Negative NEGATIVE [facility] Color (U) YELLOW YELLOW [facility] Epithelial cells.squamous LM.HPF (Urine sed) [#/Area] 0-5 < OR = 5 /HPF [facility] Glucose Ql (U) Negative NEGATIVE [facility] Hemoglobin Ql (U) Negative NEGATIVE [facility] Hyaline casts (Urine sed) [#/Area] NONE SEEN NONE SEEN /LPF [facility] Interpretation and review of laboratory results Abnormal [facility] Ketones Ql (U) Negative NEGATIVE [facility] Leukocyte esterase Test strip Ql (U) 2+ Abnormal NEGATIVE [facility] Nitrite Ql (U) Negative NEGATIVE [facility] pH (U) 6.0 [pH] 5.0 - 8.0 [facility] Protein Ql (U) Negative NEGATIVE [facility] RBC LM.HPF (Urine sed) [#/Area] NONE SEEN < OR = 2 /HPF [facility] Service comment (Unsp spec) [Interp] [facility] Comment on above: This urine was annalise zed for the presence of WBC, RBC, bacteria, casts, and other formed elements. Only those elements seen were reported. Specific gravity (U) [Rel density] 1.013 1.001 - 1.035 [facility] WBC LM.HPF (Urine sed) [#/Area] 0-5 < OR = 5 /HPF [facility] Office Visiton 02-27-2024 Follow-up visit [id number] Saima Allenly 1960 F Date Provider Department Center 02/27/2024 [id number] [facility] ACH URO None Family History Problem Relation Age of Onset Hypertension Father Heart disease Father Heart disease Mother Heart attack Mother Stroke Mother Uterine cancer Paternal Grandmother Heart attack Maternal Grandmother Diabetes Maternal Grandmother Family Status - Relation Status Age at Father Mother Paternal Grandmother Maternal Grandmother Level of Service:64287 [place] OFFICE/OUTPATIENT NEW MODERATE MDM 45 MINUTES Reason for Visit and Comments: New Patient [542] - STACEY. Some urge incont. Some urgency and frequency. Maybe not emptying completely. Sometimes hard to make bowel movement. Sometimes feel pressure or bulge in vagina. Normal [facility] System SHS Progress Noteon 02-27-2024 Progress Note Urogynecology & Reconstructive Surgery Consult CHIEF COMPLAINT: Yvonne Allen is a 64 y.o. who presents for consultation requested by Reinaldo Funes MD for an opinion regarding stress urinary incontinence, rectocele. HISTORY OF PRESENT ILLNESS: Pt is planning to undergo hysterectomy with Dr. Funes for endometrial cancer. She also notes leakage of urine with activity and vaginal bulge symptoms. Here to discuss concomitant repair. 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 Yes 2 Usually experience heaviness or dullness in the pelvic area? Yes 1 Usually have a bulge or something falling out that you can see or feel in your vaginal area? Yes 2 Ever have to push on the vagina or around the rectum to have or complete a bowel movement? No 0 Usually experience a feeling of incomplete bladder emptying? No 0 Ever have to push up on a bulge in the vaginal area with your fingers to start or complete urination? No 0 Feel you need to strain too hard to have a bowel movement? Yes 1 Feel you have not completely emptied your bowels at the end of a bowel movement? Yes 1 Usually lose stool beyond your control if your stool is well formed? No 0 Usually lose stool beyond your control if your stool is loose? No 0 Usually lose gas from the rectum beyond your control? No 0 Usually have pain when you pass your stool? Yes 2 Experience a strong sense of urgency and have to mcclelland to the bathroom to have a bowel movement? Yes 2 Does part of your bowel ever pass through the rectum and bulge outside during or after a bowel movement? No 0 Usually experience frequent urination? Yes 2 Usually experience urine leakage associated with a feeling of urgency, that is, a strong sensation of needing to go to the bathroom? Yes 2 Usually experience urine leakage related to coughing, sneezing or laughing? Yes 4 Usually experience small amounts of urine leakage (that is, drops)? Yes 3 Usually experience difficulty emptying your bladder? No 0 Usually experience pain or discomfort in the lower abdomen or genital region? No 0 Past Surgical History: Procedure Laterality Date LAPAROSCOPY ABDOMEN DIAGNOSTIC (HISTORICAL) 1978 removed cyst OTHER SURGICAL HISTORY Left melenoma removed x2 in arm (2013) and armendariz (2022) OTHER SURGICAL HISTORY 2012 bone tumor removed OTHER SURGICAL HISTORY 2023 basal cell removed of face OTHER SURGICAL HISTORY Right 2023 right arm, squamis cell removed. TUBAL LIGATION 1993 Past Medical History: Diagnosis Date Arthritis Basal cell carcinoma Bone tumor Depression Hypertension Melanoma (HCC) Seasonal allergies Squamous cell carcinoma in situ Vitamin D deficiency Family History Problem Relation Name Age of Onset Hypertension Father Heart disease Father Heart disease Mother Heart attack Mother Stroke Mother Uterine cancer Paternal Grandmother Heart attack Maternal Grandmother Diabetes Maternal Grandmother Social History Tobacco Use Smoking status: Never Smokeless tobacco: Never Substance Use Topics Alcohol use: Never Drug use: Never Current Outpatient Medications Medication Sig Dispense Refill Cholecalciferol 50 MCG (1999 [place]) chewable tablet Chew. escitalopram (Lexapro) 20 MG tablet Take 20 mg by mouth every morning. lisinopril 40 MG tablet Take 40 mg by mouth daily. No current facility-administere d medications for this visit. No Known Allergies REVIEW OF SYSTEMS General: negative Skin: negative Psychiatric: negative Neurologic: negative Endocrine: negative Cardiovascular: negative Hematologic/Lymphati c: negative Respiratory: negative Gastrointestinal: negative Musculoskeletal: positive for joint pain I have confirmed and edited as necessary, the PFSH and ROS obtained by others. Ciera Charles MD Warp Hauler: Monique Leon MA OBJECTIVE: Physical Exam BP (!) 164/99 Pulse 62 Wt 194 lb (88 kg) BMI 34.37 kg/m? Constitutional: Body mass index is 34.37 kg/m?. General Appearance: no acute distress, normally developed, and affect appropriate Skin: normal coloration and turgor, no rashes Lungs: unlabored breathing Heart: not examined Breasts: not examined Abdomen: abdomen is soft without significant tenderness, masses, organomegaly or guarding. Pelvic: External Genitalia: normal appearing vulva with no masses, tenderness, or lesions Vagina: Ant Wall - Stage II; Post Wall - Stage II Cervix / [place] - Stage I POP-Q: Aa = -0.5 Ba = -0.5 C = -7 GH = 4 PB = 3 TVL = 10 Ap = 0 Bp = 0 D = -9 Vaginal epithelium: atrophic Cervix: normal appearing cervix without discharge or lesions Urethra: normal appearing urethra with no masses, tenderness or lesions and hypermobile, neg DENTAL LABORATORY ASSISTANT B (more content not included)... Normal [facility] Urinalysis macro (dipstick) panel (U)Ordered By: Monique Leon on 02-27-2024 Bilirubin, UA Negative [facility] Blood, UA Trace-Intact [facility] Glucose, UA Negative [facility] Interpretation and review of laboratory results Abnormal [facility] Ketones, POC (mg/dL) Negative [facility] Leukocytes, UA Trace [facility] Nitrite, UA Negative [facility] pH, UA 6.0 [facility] Protein, UA Negative [facility] Spec Grav, UA 1.015 [facility] Office Visiton 01-20-2024 Follow-up visit [id number] AlejandroYvonne 1960 F Date Provider Department Center 01/20/2024 [id number] FUNES [facility] TAR POT MAN None Family History Problem Relation Age of Onset Heart disease Mother Hypertension Father Heart disease Father Family Status - Relation Status Age at Mother Father Level of Service:33974 [place] OFFICE/OUTPATIENT NEW LOW MDM 30 MINUTES Reason for Visit and Comments: Endometrial Cancer [562] [facility] 36on 01-17-2024 36 Patient would like a callback to get scheduled for a new patient appointment, thank you [facility] 36on 01-06-2024 36 Tried to call patient. Just kept ringing. Will try again. [facility] Discharge Instructionon 12-20 Discharge Instruction [facility] Medical Records Department [address] [place] [address] Instructions for Home/Discharge Instructions 01/03/24 0941 MR#: [id number] Acct: [id number] Name: YVONNE ALLEN Rep #: [id number] : 1960 63 From: Shanique Rachel DO PCP: Dr. Haydee Flynn MD Status:REG [facility] Discharge Instructions Diet Discharge Diet: No restrictions Activity Discharge Activity: Return to Normal Activity, May Shower and May Take a Tub Bath (after 1 week) May resume sexual activity in: 1-2 weeks Weight Bearing Status: Weight bearing as tolerated Lifting Restrictions: none Dressing / Incision Call your doctor if you observe: Fever of 101 or Higher, Using more than 1 pad per hour, Shortness of breath and Uncontrolled pain Follow Up Care Please Follow Up With: Shanique Rachel DO When: Call [phone] to schedule appointment. Test Results: Test results from this visit will be discussed in further detail at your follow-up appointment, if applicable. Discharge Plan Admission Primary Reason for Your Visit: dilation and curettage Attending Provider: Shanique Rachel Primary Care Provider: Haydee Flynn Instructions Print Language: Fijian Discharge Orders/Prescriptions Prescriptions: New naproxen 500 mg tablet 500 mg PO BID PRN (Reason: pain) Qty: 20 0RF Continued escitalopram oxalate 20 mg tablet 20 mg PO QHS lisinopril 40 mg tablet 40 mg PO QHS cholecalciferol (vitamin D3) 50 mcg (2,000 unit) capsule 50 mcg PO DAILY Referrals / Follow Up: Haydee Flynn MD [Primary Care Provider] - Disposition Disposition (needs filled in before D/C Order can be placed): Home, Self Care 01/03/24 0943 Shanique Rachel DO CC: Dr. Haydee Flynn MD Signed ADDENDUM by Dr. Shanique Rachel DO on 01/03/24 at 1018 expect bleeding that should progressively slow down over the next week or 2 weeks. 01/03/24 1018 Shanique Rachel DO cc: Dr. Haydee Flynn MD * Signed Normal [facility] HER-2-FLORIDALMA (initial)on 2023 HER-2-FLORIDALMA (initial) Patient Age/Sex Location Account Attending Physician YVONNE ALLEN 63/F [facility] [id number] Brissa Mckeon Specimen: [id number] Received: 01/04/24 Status: YRN Walsh Num: [id number] Spec Type: IMMUNO Subm Dr: Dr. Shanique Rachel, DO PHYSICIAN INSTITUTION [place] [address] SPECIMEN INFORMATION: Tissue Source: Endometrial curettings Clinical Info: Thickened endometrium, postmenopausal bleeding Specimen Number: [id number] CPT code: 73668,30910l0 METHODOLOGY: Deparaffinized sections of prefer/formalin-fixe d tissue or PAP/DQ stained slides are incubated with monoclonal/polyclona l antibodies/oligonucl eotide probes. Localization is made via biotin free immunoperoxidase method. Appropriate controls are performed and reacted as expected. Results on target cell population are indicated in the following table: RESULTS: ANTIBODY / CLONE RESULT Block 7 Her-2neu (CB11) negative (1+, focal) MLH1 (M1) positive MSH2 (25D12) positive MSH6 (44) positive PMS2 (GVQ7003) positive P53 (DO-7) positive, focal (wild type pattern) Ki-67 (30-9) positive, high These tests were developed and their performance characteristics determined by [facility]. They may not have been cleared or approved by the U.S. Food and Drug Administration. The FDA has determined that such clearance or approval is not necessary. The above immunohistochemical/ dualISH markers are ordered and reviewed by the Pathologist. INTERPRETATION: Endometrial curettings: Endometrial adenocarcinoma. Negative (no loss of mismatch protein; no microsatellite instability detected). CAMERON/ 01/05/2024 Signed (signature on file) Dr. Ortiz Birmingham MD 01/05/24 1111 Normal [facility] Comment on above: Performed By: #### L 503.0106, L506.1001 #### [facility] [address] [place], [address] Operative Reporton 4 Operative Report [facility] Medical Records Department [address] [place] [address] Operative Report 01/03/24 1014 MR#: [id number] Acct: [id number] Name: YVONNE ALLEN Rep #: [id number] : 1960 63 From: Shanique Rachel DO PCP: Dr. Haydee Flynn MD Status:[facility] Location: [place] [address] Problems Associated Problem List Diagnoses (1) Thickened endometrium: (2) Postmenopausal bleeding: Report of Operation Date of Procedure: 01/03/24 Pre-Operative Diagnosis: thickened endometrium and postmenopausal bleeding Post-Operative Diagnosis: thickened endometrium and postmenopausal bleeding Surgery/Procedure Performed:: hysteroscopy dilation and curettage Description of Surgical Findings:: thick tissue in endometrium Surgeon: Shanique Rachel recoil spring winder: None Type of Anesthesia: Local and MAC Specimen's removed: endometrial curetting's Drains: none Estimated Blood Loss (mL): 20cc Fluids Replaced: 500cc Description of Procedure: Patient was prepped and draped in a normal sterile fashion under MAC anesthesia. A weighted speculum was placed in the vagina and the anterior lip of the cervix was grasped with a single-tooth tenaculum. A paracervical block was placed with 1% lidocaine. Cervix was progressively dilated to allow passage of a 5 mm hysteroscope. The lining was fully visualized and noted to have thick irregular appearing tissue and a possible polyp . Uterine sounded to 7 cm. Curettage was performed and a large amount of tissue was removed and sent to pathology. All instruments were removed from the vagina and excellent hemostasis was noted. Patient was awoken and taken to recovery in stable condition. Procedure Start Time: 10:04 Procedure Stop Time: 10:12 Complications none Admit VTE Documentation VTE Present on Admission: No VTE Mechan Device Prophylaxis: SCD's VTE Pharm Prophylaxis ordered?: No Multi Select Codes Urinary/Genital Urinary/Genital CPT Codes: 17717 Hysteroscopy,EMC, Polypectomy 01/03/24 1017 Cosigner Signature (if applicable): CC: Dr. Haydee Flynn MD; Dr. Shanique Rachel DO Signed Normal [facility] Surgery Specimen Level Edouard 01-03-2024 Surgery Specimen Level IV Patient Age/Sex Location Account Attending Physician YVONNE ALLEN 63/F [facility] [id number] Brissa Mckeon Specimen: Received: 01/03/24-1315 Status: YRN Walsh Num: [id number] Spec Type: ENDOM BX/C Blane Dr: Dr. Shanique Rachel DO HEADHAYLIE OPERATION: Hysteroscopy, Brissa Cordero PRE-OP DIAGNOSIS: Thickened endometrium, postmenopausal bleeding TISSUE SUBMITTED: Endometrial Curettings MICROSCOPIC DIAGNOSIS Endometrial curettings: Endometrial adenocarcinoma, endometroid type with focal squamous differentiation, FIGO grade II. See comment. [facility] 01/04/2024 COMMENT Immunohistochemistry ([id number]) for microsatellite instability will be performed and results will be reported separately. Case has been reviewed in consultation with Dr. Bradford who concurs with the above diagnosis. IDC:AM MICROSCOPIC DESCRIPTION Slides are reviewed. GROSS DESCRIPTION Received in fixative is one container labeled with the patient's name and designated Endometrial curettings. The specimen consists of multiple fragments of hemorrhagic soft tissue in aggregate 7.5 x 3.0 x 1.0cm. The entire specimen is submitted in eight cassettes. [facility] 01/03/24 TC:0 CPT:39448 Patient Age/Sex Location Account Attending Physician YVONNE ALLEN 63/F [facility] [id number] Brissa Mckeon Signed (signature on file) Dr. Ortiz Birmingham MD 01/05/24 0914 Normal [facility] Comment on above: Performed By: #### L 503.0105 #### [facility] [address] [place], [place], [address] Type AND Screen - PAT ONLYon 12-30-2023 ABO and Rh group Nom (Bld) Blood group A Rh(D) positive Normal [facility] Comment on above: Order Comment: Surge ry Date: 01/03/24Reason for Laboratory Test [id number] D C Performed By: #### L 503.0106, L506.1001 #### [facility] [address] [place], [place], [address] Basophil percentageOrdered B y: Haydee Flynn on 12-20-2023 Bilirubin [Mass/Vol] 0.70 mg/dL 0.20-1.00 [facility] Comment on above: For patients on eltr ombopag therapy, use of Dimension [place] TBIL is not recommended. Chloride [Moles/Vol] 106 mmol/L 98-107 [facility] Cholesterol [Mass/Vol] 206 mg/dL <200 [facility] Comment on above: <200 mg/dL Desirable 200-240 mg/dL Borderline >240 mg/dL High Risk Glucose [Mass/Vol] 99 mg/dL 74-106 [facility] Potassium [Moles/Vol] 3.9 mmol/L 3.5-5.1 [facility] Protein [Mass/Vol] 7.7 g/dL 6.4-8.2 [facility] Sodium [Moles/Vol] 139 mmol/L 136-145 [facility] Triglyceride [Mass/Vol] 134 mg/dL <199 [facility] Comment on above: The drugs N-Acetylcy steine and Metamizole may falsely depress this assay.Serum Triglycerides Reference Interval Normal <150 mg/dL Borderline high 150 - 199 mg/dL High 200 - 499 mg/dL Very High > or = 500 mg/dL CBC W/Diff, Automatedon 04-3 0-2023 Absolute Lymph 2.34 X10 3/uL Normal 0.83-4.51 [facility] Comment on above: Performed By: #### L 503.0106, L506.1001 #### [facility] [address] [place], [address] Absolute Neut 2.4 X10 3/uL Normal 2.0-7.7 [facility] Comment on above: Performed By: #### L 503.0106, L506.1001 #### [facility] [address] [place], [address] Basophils/100 WBC (Bld) 0.4 % Normal 0-1 [facility] Comment on above: Performed By: #### L 503.0106, L506.1001 #### [facility] [address] [place], [address] Eosinophils/100 WBC (Bld) 1.5 % Normal 0-5 [facility] Comment on above: Performed By: #### L 503.0106, L506.1001 #### [facility] [address] [place], [address] Erythrocyte distribution width (RBC) [Ratio] 13.2 % Normal 11.6-14.6 [facility] Comment on above: Performed By: #### L 503.0106, L506.1001 #### [facility] [address] [place], [address] Hematocrit (Bld) [Volume fraction] 40.8 % Normal 37-47 [facility] Comment on above: Performed By: #### L 503.0106, L506.1001 #### [facility] [address] [place], [address] Hemoglobin (Bld) [Mass/Vol] 13.4 g/dL Normal 12.0-15.0 [facility] Comment on above: Performed By: #### L 503.0106, L506.1001 #### [facility] [address] [place], [address] IG% 0.200 Normal 0.0-0.9 [facility] Comment on above: Result Comment: IG% - Immature Granulocytes (promyelocytes, myelocytes and metamyelocytes) > 1% indicates that a LEFT SHIFT is Present. Performed By: #### L 503.0106, L506.1001 #### [facility] [address] [place], [address] Lymphocytes/100 WBC (Bld) 45.1 % High 19-41 [facility] Comment on above: Performed By: #### L 503.0106, L506.1001 #### [facility] [address] [place], [address] MCH (RBC) [Entitic mass] 28.0 pg Normal 27.0-32.0 [facility] Comment on above: Performed By: #### L 503.0106, L506.1001 #### [facility] [address] [place], [address] MCHC (RBC) [Mass/Vol] 32.8 g/dL Normal 32-36 [facility] Comment on above: Performed By: #### L 503.0106, L506.1001 #### [facility] [address] [place], [address] MCV (RBC) [Entitic vol] 85.4 fL Normal 81-99 [facility] Comment on above: Performed By: #### L 503.0106, L506.1001 #### [facility] [address] [place], [address] Monocytes/100 WBC (Bld) 6.4 % Normal 0-10 [facility] Comment on above: Performed By: #### L 503.0106, L506.1001 #### [facility] [address] [place], [address] Neutrophils/100 WBC (Bld) 46.4 % Low 47-70 [facility] Comment on above: Performed By: #### L 503.0106, L506.1001 #### [facility] [address] [place], [address] Nucleated RBC (Bld) [#/Vol] 0 10*3/uL Normal 0-5 [facility] Comment on above: Performed By: #### L 503.0106, L506.1001 #### [facility] [address] [place], [address] Platelet mean volume (Bld) [Entitic vol] 9.6 fL Normal 6.2-12.0 [facility] Comment on above: Performed By: #### L 503.0106, L506.1001 #### [facility] [address] [place], [address] Platelets (Bld) [#/Vol] 243 10*3/uL Normal 150-450 [facility] Comment on above: Performed By: #### L 503.0106, L506.1001 #### [facility] [address] [place], [address] RBC (Bld) [#/Vol] 4.78 10*6/uL Normal 4.2-5.4 [facility] Comment on above: Performed By: #### L 503.0106, L506.1001 #### [facility] [address] [place], [address] RDW SD 41.1 fl Normal 35.1-43.9 [facility] Comment on above: Performed By: #### L 503.0106, L506.1001 #### [facility] [address] [place], [address] WBC (Bld) [#/Vol] 5.2 10*3/uL Normal 4.4-11.0 [facility] Comment on above: Performed By: #### L 503.0106, L506.1001 #### [facility] [address] [place], [address] CBC-Complete Blood Cnt No Di ffon 12-20-2023 HCT Normal 37-47 [facility] Comment on above: Order Comment: Order Date: 08/18/23Order Info: [id number] - CBC Result Comment: CBCD ORDERED FOR SDC SHARE THOSE RESULTS Performed By: #### L 503.0106, L506.1001 #### [facility] [address] [place], [address] HGB Normal 12.0-15.0 [facility] Comment on above: Order Comment: Order Date: 08/18/23Order Info: [id number] - CBC Result Comment: CBCD ORDERED FOR SDC SHARE THOSE RESULTS Performed By: #### L 503.0106, L506.1001 #### [facility] [address] [place], [address] MCH Normal 27.0-32.0 [facility] Comment on above: Order Comment: Order Date: 08/18/23Order Info: [id number] - CBC Result Comment: CBCD ORDERED FOR SDC SHARE THOSE RESULTS Performed By: #### L 503.0106, L506.1001 #### [facility] [address] [place], [address] MCHC Normal 32-36 [facility] Comment on above: Order Comment: Order Date: 08/18/23Order Info: [id number] - CBC Result Comment: CBCD ORDERED FOR SDC SHARE THOSE RESULTS Performed By: #### L 503.0106, L506.1001 #### [facility] [address] [place], [address] MCV Normal 81-99 [facility] Comment on above: Order Comment: Order Date: 08/18/23Order Info: [id number] - CBC Result Comment: CBCD ORDERED FOR SDC SHARE THOSE RESULTS Performed By: #### L 503.0106, L506.1001 #### [facility] [address] [place], [address] PLT Normal 150-450 [facility] Comment on above: Order Comment: Order Date: 08/18/23Order Info: [id number] - CBC Result Comment: CBCD ORDERED FOR SDC SHARE THOSE RESULTS Performed By: #### L 503.0106, L506.1001 #### [facility] [address] [place], [address] RBC Normal 4.2-5.4 [facility] Comment on above: Order Comment: Order Date: 08/18/23Order Info: [id number] - CBC Result Comment: CBCD ORDERED FOR SDC SHARE THOSE RESULTS Performed By: #### L 503.0106, L506.1001 #### [facility] [address] [place], [address] RDW CV Normal 11.6-14.6 [facility] Comment on above: Order Comment: Order Date: 08/18/23Order Info: [id number] - CBC Result Comment: CBCD ORDERED FOR SDC SHARE THOSE RESULTS Performed By: #### L 503.0106, L506.1001 #### [facility] [address] [place], [address] RDW SD Normal 35.1-43.9 [facility] Comment on above: Order Comment: Order Date: 08/18/23Order Info: [id number] - CBC Result Comment: CBCD ORDERED FOR SDC SHARE THOSE RESULTS Performed By: #### L 503.0106, L506.1001 #### [facility] [address] [place], [address] WBC Normal 4.4-11.0 [facility] Comment on above: Order Comment: Order Date: 08/18/23Order Info: [id number] - CBC Result Comment: CBCD ORDERED FOR SDC SHARE THOSE RESULTS Performed By: #### L 503.0106, L506.1001 #### [facility] [address] [place], [address] Comprehensive Metabolic Prof ilon 12-20-2023 Albumin [Mass/Vol] 4.0 g/dL Normal 3.2-5.0 [facility] Comment on above: Order Comment: Order Date: 08/18/23Order Info: [id number] - CMPOrder Info: [id number] - LIPIDOrder Info: [id number] - URICOrder Info: [id number] - TSH Performed By: #### L 503.0106, L506.1001 #### [facility] [address] [place], [address] Albumin/Globulin [Mass ratio] 1.1 {ratio} Normal 0.9-2.4 [facility] Comment on above: Order Comment: Order Date: 08/18/23Order Info: [id number] - CMPOrder Info: [id number] - LIPIDOrder Info: [id number] - URICOrder Info: [id number] - TSH Performed By: #### L 503.0106, L506.1001 #### [facility] [address] [place], [address] ALK P 74 U/L Normal 45-117 [facility] Comment on above: Order Comment: Order Date: 08/18/23Order Info: [id number] - CMPOrder Info: [id number] - LIPIDOrder Info: [id number] - URICOrder Info: [id number] - TSH Performed By: #### L 503.0106, L506.1001 #### [facility] [address] [place], [address] ALT [Catalytic activity/Vol] 69 U/L High 13-56 [facility] Comment on above: Order Comment: Order Date: 08/18/23Order Info: [id number] - CMPOrder Info: [id number] - LIPIDOrder Info: [id number] - URICOrder Info: 6-3 - TSH Performed By: #### L 503.0106, L506.1001 #### [facility] [address] [place], [address] AST [Catalytic activity/Vol] 40 U/L High 15-37 [facility] Comment on above: Order Comment: Order Date: 08/18/23Order Info: [id number] - CMPOrder Info: [id number] - LIPIDOrder Info: [id number] - URICOrder Info: [id number] - TSH Performed By: #### L 503.0106, L506.1001 #### [facility] [address] [place], [address] Bilirubin [Mass/Vol] 0.70 mg/dL Normal 0.20-1.00 [facility] Comment on above: Order Comment: Order Date: 08/18/23Order Info: [id number] - CMPOrder Info: [id number] - LIPIDOrder Info: [id number] - URICOrder Info: 6-3 - TSH Result Comment: For patients on eltrombopag therapy, use of Dimension [place] TBIL is not recommended. Performed By: #### L 503.0106, L506.1001 #### [facility] [address] [place], [address] BUN/CRE 11.7 RATIO Normal 10-20 [facility] Comment on above: Order Comment: Order Date: 08/18/23Order Info: [id number] - CMPOrder Info: [id number] - LIPIDOrder Info: [id number] - URICOrder Info: 6-3 - TSH Performed By: #### L 503.0106, L506.1001 #### [facility] [address] [place], [address] CA,Total 9.0 mg/dL Normal 8.5-10.1 [facility] Comment on above: Order Comment: Order Date: 08/18/23Order Info: [id number] - CMPOrder Info: [id number] - LIPIDOrder Info: [id number] - URICOrder Info: 3 - TSH Performed By: #### L 503.0106, L506.1001 #### [facility] [address] [place], [address] Chloride [Moles/Vol] 106 mmol/L Normal 98-107 [facility] Comment on above: Order Comment: Order Date: 08/18/23Order Info: [id number] - CMPOrder Info: [id number] - LIPIDOrder Info: [id number] - URICOrder Info: [id number] - TSH Performed By: #### L 503.0106, L506.1001 #### [facility] [address] [place], [address] CO2 [Moles/Vol] 29.0 mmol/L Normal 21.0-32.0 [facility] Comment on above: Order Comment: Order Date: 08/18/23Order Info: [id number] - CMPOrder Info: [id number] - LIPIDOrder Info: [id number] - URICOrder Info: [id number] - TSH Performed By: #### L 503.0106, L506.1001 #### [facility] [address] [place], [address] Creatinine [Mass/Vol] 0.77 mg/dL Normal 0.55-1.02 [facility] Comment on above: Order Comment: Order Date: 08/18/23Order Info: [id number] - CMPOrder Info: [id number] - LIPIDOrder Info: [id number] - URICOrder Info: 3 - TSH Result Comment: The validity of the calculated GFR GFRAA in patients over 70 years has not been determined. Clinical correlation is essential. Performed By: #### L 503.0106, L506.1001 #### [facility] [address] [place], [address] EST GFR - AA 97 mL/min Normal >60 [facility] Comment on above: Order Comment: Order Date: 08/18/23Order Info: [id number] - CMPOrder Info: [id number] - LIPIDOrder Info: [id number] - URICOrder Info: [id number] - TSH Result Comment: Afri can [place] GFR Calc Performed By: #### L 503.0106, L506.1001 #### [facility] [address] [place], [address] GAP 4 Low 5-15 [facility] Comment on above: Order Comment: Order Date: 08/18/23Order Info: [id number] - CMPOrder Info: [id number] - LIPIDOrder Info: [id number] - URICOrder Info: 6-3 - TSH Performed By: #### L 503.0106, L506.1001 #### [facility] [address] [place], [address] GFR/1.73 sq M.predicted among non-blacks MDRD (S/P/Bld) [Vol rate/Area] 80 mL/min/{1.73_m2} Normal >60 [facility] Comment on above: Order Comment: Order Date: 08/18/23Order Info: [id number] - CMPOrder Info: [id number] - LIPIDOrder Info: [id number] - URICOrder Info: [id number] - TSH Result Comment: Non- GFR Calc Performed By: #### L 503.0106, L506.1001 #### [facility] [address] [place], [address] Globulin (S) [Mass/Vol] 3.7 g/dL Normal 2.2-4.2 [facility] Comment on above: Order Comment: Order Date: 08/18/23Order Info: [id number] - CMPOrder Info: [id number] - LIPIDOrder Info: [id number] - URICOrder Info: [id number] - TSH Performed By: #### L 503.0106, L506.1001 #### [facility] [address] [place], [address] Glucose [Mass/Vol] 99 mg/dL Normal 74-106 [facility] Comment on above: Order Comment: Order Date: 08/18/23Order Info: [id number] - CMPOrder Info: [id number] - LIPIDOrder Info: [id number] - URICOrder Info: 6-3 - TSH Performed By: #### L 503.0106, L506.1001 #### [facility] [address] [place], [address] Potassium [Moles/Vol] 3.9 mmol/L Normal 3.5-5.1 [facility] Comment on above: Order Comment: Order Date: 08/18/23Order Info: [id number] - CMPOrder Info: [id number] - LIPIDOrder Info: [id number] - URICOrder Info: [id number] - TSH Performed By: #### L 503.0106, L506.1001 #### [facility] [address] [place], [address] Sodium [Moles/Vol] 139 mmol/L Normal 136-145 [facility] Comment on above: Order Comment: Order Date: 08/18/23Order Info: [id number] - CMPOrder Info: [id number] - LIPIDOrder Info: [id number] - URICOrder Info: 6-3 - TSH Performed By: #### L 503.0106, L506.1001 #### [facility] [address] [place], [address] T PROT 7.7 g/dL Normal 6.4-8.2 [facility] Comment on above: Order Comment: Order Date: 08/18/23Order Info: [id number] - CMPOrder Info: [id number] - LIPIDOrder Info: [id number] - URICOrder Info: [id number] - TSH Performed By: #### L 503.0106, L506.1001 #### [facility] [address] [facility] [place], [address] Urea nitrogen [Mass/Vol] 9 mg/dL Normal 7-18 [facility] Comment on above: Order Comment: Order Date: 08/18/23Order Info: [id number] - CMPOrder Info: - LIPIDOrder Info: [id number] - URICOrder Info: [id number] - TSH Performed By: #### L 503.0106, L506.1001 #### [facility] [address] [facility] [address] [place], [place], [address] Laboratory - Chemistry and C hemistry - challengeOrdered By: Haydee Flynn on 12-20-2023 Albumin/Globulin [Mass ratio] 1.1 {ratio} 0.9-2.4 [facility] ALP [Catalytic activity/Vol] 74 U/L 45-117 [facility] ALT [Catalytic activity/Vol] 69 U/L 13-56 [facility] Cholesterol in HDL [Mass/Vol] 41 mg/dL >40 [facility] Comment on above: The drugs N-Acetylcy steine and Metamizole may falsely depress this assay. Reference Range HDL <40 mg/dL Low HDL Cholesterol HDL >or= 60 mg/dL High HDL Cholesterol Cholesterol in LDL [Mass/Vol] 138 mg/dL 0-130 [facility] CO2 [Moles/Vol] 29.0 mmol/L 21.0-32.0 [facility] Globulin (S) [Mass/Vol] 3.7 g/dL 2.2-4.2 [facility] Urea nitrogen/Creatinine [Mass ratio] 11.7 mg/mg 10-20 [facility] Lipid Profileon 12-20-2023 Cholesterol [Mass/Vol] 206 mg/dL High 200 [facility] Comment on above: Order Comment: Order Date: 08/18/23Order Info: [id number] - CMPOrder Info: - LIPIDOrder Info: [id number] - URICOrder Info: [id number] - TSH Result Comment: <200 mg/dL Desirable 200-240 mg/dL Borderline >240 mg/dL High Risk Performed By: #### L 503.0106, L506.1001 #### [facility] [address] [place], [address] Cholesterol in HDL [Mass/Vol] 41 mg/dL Normal [facility] Comment on above: Order Comment: Order Date: 08/18/23Order Info: [id number] - CMPOrder Info: [id number] - LIPIDOrder Info: [id number] - URICOrder Info: 3 - TSH Result Comment: The drugs N-Acetylcysteine and Metamizole may falsely depress this assay. Reference Range HDL <40 mg/dL Low HDL Cholesterol HDL >or= 60 mg/dL High HDL Cholesterol Performed By: #### L 503.0106, L506.1001 #### [facility] [address] [place], [address] Cholesterol in LDL [Mass/Vol] 138 mg/dL High 0-130 [facility] Comment on above: Order Comment: Order Date: 08/18/23Order Info: [id number] - CMPOrder Info: [id number] - LIPIDOrder Info: [id number] - URICOrder Info: 3 - TSH Performed By: #### L 503.0106, L506.1001 #### [facility] [address] [place], [address] Cholesterol in VLDL [Mass/Vol] 27 mg/dL Normal 5-40 [facility] Comment on above: Order Comment: Order Date: 08/18/23Order Info: [id number] - CMPOrder Info: [id number] - LIPIDOrder Info: [id number] - URICOrder Info: 3 - TSH Performed By: #### L 503.0106, L506.1001 #### [facility] [address] [place], [address] Triglyceride [Mass/Vol] 134 mg/dL Normal [facility] Comment on above: Order Comment: Order Date: 08/18/23Order Info: [id number] - CMPOrder Info: [id number] - LIPIDOrder Info: [id number] - URICOrder Info: [id number] - TSH Result Comment: The drugs N-Acetylcysteine and Metamizole may falsely depress this assay. Serum Triglycerides Reference Interval Normal <150 mg/dL Borderline high 150 - 199 mg/dL High 200 - 499 mg/dL Very High > or = 500 mg/dL Performed By: #### L 503.0106, L506.1001 #### [facility] [address] [place], [address] No Panel InformationOrdered By: Haydee Flynn on 12-20-2023 Estimated GFR (MDRD) Amer 97 mL/min >60 [facility] Comment on above: GFR Calc Estimated GFR (MDRD) Non-Af Amer 80 mL/min >60 [facility] Comment on above: Non- GFR Calc Vitamin D 25-Hydroxy 28.5 ng/mL [facility] Comment on above: Vitamin D 25(OH) Sta tus Range Deficiency <20 ng/mL (50nmol/L) Insufficiency 20 - 30 ng/mL (50 - 75 nmol/L) Sufficiency 30 - 100 ng/mL (75 - 250 nmol/L) Toxicity >100 ng/mL (>250 nmol/L) VLDL Cholesterol 27 mg/dL 5-40 [facility] Rigging Man Office Visit Reporton 12-20-2023 Rigging Man Office Visit Report [facility] [address] [place] [address] OFFICE VISIT Date of Service: 12/20/23 MR#: [id number] Acct: [id number] Name: ALEJANDROYVONNE ANGIE Rep #: [id number] : 1960 Provider: Dr. 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 Is patient in pain?: No Allergies No Known Allergies Allergy (Verified 12/20/23 11:30) Medications escitalopram oxalate 20 mg tablet 20 mg PO DAILY 11/16/20 [History Confirmed 12/20/23] cholecalciferol (vitamin D3) 50 mcg (2,000 unit) capsule 50 mcg PO DAILY 10/31/23 [History Confirmed 12/20/23] lisinopril 40 mg tablet 40 mg PO DAILY 10/31/23 [History Confirmed 12/20/23] Is last menstrual period known: No Post menopausal: No Patient : No : No PFSH Medical History Arthritis Basal cell carcinoma Bone tumor Depression with anxiety HTN (hypertension) Melanoma Seasonal allergies Squamous cell carcinoma Vitamin D deficiency Surgical History H/O squamous cell carcinoma excision Hx of melanoma excision S/P laparotomy S/P tubal ligation Social History Smoking Status: Never smoker alcohol intake: never substance use type: does not use caffeine: Yes what type of physical activity do you participate in: none seatbelt use: always do you feel safe at home: Yes additional social history: - Gene HPI d c Details: YVONNE ALLEN is a 63 year old who presents for postmenopausal bleeding and pre-op exam. She has been menopausal for 10 years and for the last year she has had on and off spotting red and brown blood. She admits that she has not had a pap or pelvic exam for several years and also has not gone for a mammogram in several years either. Ultrasound shows the following: FINDINGS: UTERUS: Anteverted. The uterus measures 9.1 x 5.3 x 4.2 cm. There is a mass in the posterior wall of the uterus measuring about 2.2 x 2.2 x 2.2 cm consistent with small uterine fibroid. The endometrial stripe measures 18 mm in AP diameter which is abnormally thickened for postmenopausal patient. Nabothian cyst seen in the cervix. RIGHT OVARY: The right ovary is not visualized. LEFT OVARY: Left ovary measures 2.6 x 1.2 x 0.8 cm. Non-enlarged, normal echogenicity. There is normal arterial inflow and venous outflow present in the left ovary. FREE FLUID: None. History 5 Elective abortions Hx Para 3 Spontaneous abortions Hx # Term Pregnancies Ectopic pregnancies Hx # Pregnancies Multiple births # of living children Past Pregnancies Del. Date Name GA/Weeks Outcome Route Bth Weight Infant Gen [facility] FOB Unknown Lisset Unknown Shilpa Unknown Kaitline ROS Const ROS Unobtainable: All systems reviewed are unremarkable except as noted in H Resp Resp: Reports system reviewed and no additional complaints, except as documented; Denies cough GI GI: Reports as per HPI Psych Psych: Reports system reviewed and no additional complaints, except as documented Exam Const General: cooperative, healthy appearing, comfortable and no acute distress Resp Effort Inspection: normal respiratory effort Skin General: no rashes or lesions noted Psych Appearance: grossly normal Speech and Movement: speech and movement normal Coding Level of Care Code Off vis,est,level 4 Diagnoses Thickened endometrium R93.89 Postmenopausal bleeding N95.0 Assessment and Plan Assessment and Plan (1) Thickened endometrium: Status: Acute (2) Postmenopausal bleeding: Status: Acute Plan: After discussing the patient's diagnosis and treatment plan options, patient wishes to proceed with surgical management. I have discussed with the patient the risks, benefits, and alternatives of the procedure which include but are not limited to risks of anesthesia, bleeding, infection, possible damage to bowel, bladder, or surrounding vasculature which could lead to additional surgery to evaluate any complications. Patient agrees to procedure and wishes to proceed. ACOG/uptodate references given for additional information regarding procedure. plan for hysteroscopy dilation and curettage Orders: Orders CBC W/Diff, Automated Today N95.0 - Postmenopausal bleeding, R93.89 - Abnormal findings on diagnostic imaging of other specified body structures (more content not included)... Normal [facility] Serum or plasma calcium ankur urement (mass/volume)Ordered By: Haydee Flynn on 12-20-2023 Calcium [Mass/Vol] 9.0 mg/dL 8.5-10.1 [facility] Serum or plasma creatinine m easurement (mass/volume)Ordered By: Haydee Flynn on 12-20-2023 Creatinine [Mass/Vol] 0.77 mg/dL 0.55-1.02 [facility] Comment on above: The validity of the calculated GFR & GFRAA in patients over 70 years has not been determined. Clinical correlation is essential. Serum or plasma thyroid stim ulating hormone (TSH) measurement (units/volume)Ordered By: Haydee Flynn on 12-20-2023 TSH Qn 1.28 uIU/mL 0.358-3.74 [facility] Serum or plasma urea nitroge n measurement (mass/volume)Ordered By: Haydee Flynn on 12-20-2023 Urea nitrogen [Mass/Vol] 9 mg/dL 7-18 [facility] Serum or plasma uric acid me asurement (mass/volume)Ordered By: Haydee Flynn on 12-20-2023 Urate [Mass/Vol] 8.4 mg/dL 2.6-6.0 [facility] Comment on above: The drugs N-Acetylcy steine and Metamizole may falsely depress this assay. Thin prep Papanicolaou smear with manual screeningOrdered By: Haydee Flynn on 12-20-2023 Thin prep Papanicolaou smear with manual screening 4.0 g/dL 3.2-5.0 [facility] Thin prep Papanicolaou smear with manual screening 40 U/L 15-37 [facility] Thin prep Papanicolaou smear with manual screening 4 5-15 [facility] Thyroid Stim Hormone (TSH)on 12-20-2023 TSH 1.28 uIU/mL Normal 0.358-3.74 [facility] Comment on above: Order Comment: Order Date: 08/18/23Order Info: [id number] - CMPOrder Info: [id number] - LIPIDOrder Info: [id number] - URICOrder Info: [id number] - TSH Performed By: #### L 503.0106, L506.1001 #### [facility] [address] [place], [address] Uric Acidon 12-20-2023 URIC 8.4 mg/dL High 2.6-6.0 [facility] Comment on above: Order Comment: Order Date: 08/18/23Order Info: [id number] - CMPOrder Info: [id number] - LIPIDOrder Info: [id number] - URICOrder Info: [id number] - TSH Result Comment: The drugs N-Acetylcysteine and Metamizole may falsely depress this assay. Performed By: #### L 503.0106, L506.1001 #### [facility] [address] [place], [place], [address] Vitamin D,25 Hydroxyon 12-19 Vitamin D 25-OH 28.5 ng/mL Normal [facility] Comment on above: Order Comment: Order Date: 08/18/23Order Info: [id number] - VITD25 Result Comment: Isabel min D 25(OH) Status Range Deficiency <20 ng/mL (50nmol/L) Insufficiency 20 - 30 ng/mL (50 - 75 nmol/L) Sufficiency 30 - 100 ng/mL (75 - 250 nmol/L) Toxicity >100 ng/mL (>250 nmol/L) Performed By: #### L 503.0106, L506.1001 #### [facility] [address] [place], [place], [address] Cervical or vaginal specimen microscopic examination by liquid based cytology (reportOrdered By: Shanique Avendaño on 10-31-2023 Cytology report Cyto stain.thin prep Doc (Cvx/Vag) Comment . [facility] Comment on above: Criteria not met, HP V Genotype not performed.Performed at: [facility] [address] [place], [place] [id number] Director: Immanuel Henning MD, Phone: [phone] at: [address] [id number] Director: Jackie Hall MD, Phone: [phone] at: =[address] [id number] Director: Jackie Hall MD, Phone: [phone] Cervical or vagninal specime n microscopic examination by cytology stain (reported asOrdered By: Shanique Avendaño on 10-31-2023 Cytology report Cyto stain Doc (Cvx/Vag) Comment . [facility] Comment on above: The Pap smear is a s creening test designed to aid in thedetection of premalignant and malignant conditions of theuterine cervix. It is not a diagnostic procedure andshould not be used as the sole means of detecting cervicalcancer. Both false-positive and false-negative reports dooccur. Detection in cervical specim en of any of human papilloma virus (HPV) 16, 18, 31, 33,Ordered By: Shanique Avendaño on 10-31-2023 HPV 16+18+31+33+35+39+45+51+ 52+56+58+59+66+68 DNA Probe+sig amp Ql (Cvx) Negative Negative [facility] Comment on above: This nucleic acid am plification test detects fourteen high-risk HPV types (16,18,31,33,35,39,45,51,52,56,58,59,66,68)without differentiation. Laboratory - CytologyOrdered By: Shanique Avendaño on 10-31-2023 Director Of Design Cyto stain Nom (Cvx/Vag) [ID] Comment . [facility] Comment on above: Alida Ruano Cytote chnologist (ASCP) Laboratory - Miscellaneous t estsOrdered By: Shanique Avendaño on 10-31-2023 Service comment (Unsp spec) [Interp] . . [facility] Thin prep Papanicolaou smear with manual screeningOrdered By: Shanique Avendaño on 10-31-2023 Thin prep Papanicolaou smear with manual screening Comment . [facility] Comment on above: NEGATIVE FOR INTRAEP ITHELIAL LESION OR MALIGNANCY.CELLULAR CHANGES ASSOCIATED WITH ATROPHY ARE PRESENT. This liquid based Th inPrep(R) pap test was screened withthe use of an image guided system. Basophil percentageOrdered B y: Deep Flynn on 02-14-2023 Basophil percentage 25-50 SEEN /hpf 0-5 [facility] Chloride [Moles/Vol] 107 mmol/L 98-107 [facility] Cholesterol [Mass/Vol] 192 mg/dL <200 [facility] Comment on above: <200 mg/dL Desirable 200-240 mg/dL Borderline >240 mg/dL High Risk Glucose [Mass/Vol] 88 mg/dL 74-106 [facility] Potassium [Moles/Vol] 4.0 mmol/L 3.5-5.1 [facility] Sodium [Moles/Vol] 141 mmol/L 136-145 [facility] Triglyceride [Mass/Vol] 121 mg/dL <199 [facility] Comment on above: The drugs N-Acetylcy steine and Metamizole may falsely depress this assay.Serum Triglycerides Reference Interval Normal <150 mg/dL Borderline high 150 - 199 mg/dL High 200 - 499 mg/dL Very High > or = 500 mg/dL Bilirubin Test strip Ql (U)O rdered By: Deep Flynn on 02-14-2023 Bilirubin Ql (U) Negative Negative [facility] Ketones Test strip Ql (U)Ord ered By: Deep Flynn on 02-14-2023 Ketones Ql (U) Negative Negative [facility] Laboratory - Chemistry and C hemistry - challengeOrdered By: Deep Flynn on 02-14-2023 CO2 [Moles/Vol] 29.0 mmol/L 21.0-32.0 [facility] Urea nitrogen/Creatinine [Mass ratio] 11.8 mg/mg 10-20 [facility] Mucus LM Ql (Urine sed)Order ed By: Deep Flynn on 02-14-2023 Mucus Ql (Urine sed) RARE /hpf [facility] Nitrite Test strip Ql (U)Ord ered By: Deep Flynn on 02-14-2023 Nitrite Ql (U) Negative Negative [facility] No Panel InformationOrdered By: Deep Flynn on 02-14-2023 Estimated GFR (MDRD) Amer 99 mL/min >60 [facility] Comment on above: GFR Calc Estimated GFR (MDRD) Non-Af Amer 81 mL/min >60 [facility] Comment on above: Non- GFR Calc Vitamin D 25-Hydroxy 34.0 ng/mL [facility] Comment on above: Vitamin D 25(OH) Sta tus Range Deficiency <20 ng/mL (50nmol/L) Insufficiency 20 - 30 ng/mL (50 - 75 nmol/L) Sufficiency 30 - 100 ng/mL (75 - 250 nmol/L) Toxicity >100 ng/mL (>250 nmol/L) Protein Test strip Ql (U)Ord ered By: Deep Flynn on 02-14-2023 Protein Ql (U) 15 mg/dl Negative [facility] Serum or plasma calcium ankur urement (mass/volume)Ordered By: Deep Flynn on 02-14-2023 Calcium [Mass/Vol] 9.1 mg/dL 8.5-10.1 [facility] Serum or plasma cholesterol in HDL measurement (mass/volume)Ordered By: Deep Flynn on 02-14-2023 Cholesterol in HDL [Mass/Vol] 40 mg/dL >40 [facility] Comment on above: The drugs N-Acetylcy steine and Metamizole may falsely depress this assay. Reference Range HDL <40 mg/dL Low HDL Cholesterol HDL >or= 60 mg/dL High HDL Cholesterol Serum or plasma cholesterol in VLDL measurement (mass/volume)Ordered By: Deep Flynn on 02-14-2023 Cholesterol in VLDL [Mass/Vol] 24 mg/dL 5-40 [facility] Serum or plasma creatinine m easurement (mass/volume)Ordered By: Deep Flynn on 02-14-2023 Creatinine [Mass/Vol] 0.76 mg/dL 0.55-1.02 [facility] Comment on above: The validity of the calculated GFR & GFRAA in patients over 70 years has not been determined. Clinical correlation is essential. Serum or plasma low density lipoprotein (LDL) cholesterol measurement (mass/volume)Ordered By: Deep Flynn on 02-14-2023 Cholesterol in LDL [Mass/Vol] 128 mg/dL 0-130 [facility] Serum or plasma urea nitroge n measurement (mass/volume)Ordered By: Deep Flynn on 02-14-2023 Urea nitrogen [Mass/Vol] 9 mg/dL 7-18 [facility] Serum or plasma uric acid me asurement (mass/volume)Ordered By: Deep Flynn on 02-14-2023 Urate [Mass/Vol] 8.5 mg/dL 2.6-6.0 [facility] Comment on above: The drugs N-Acetylcy steine and Metamizole may falsely depress this assay. Squamous epithelial cells de tection in urine sediment by light microscopyOrdered By: Deep Flynn on 02-14-2023 Epithelial cells.squamous LM Ql (Urine sed) 0-5 SEEN /hpf 5-10 [facility] Thin prep Papanicolaou smear with manual screeningOrdered By: Deep Flynn on 02-14-2023 Thin prep Papanicolaou smear with manual screening 5 5-15 [facility] Urine blood detectionOrdered By: Deep Flynn on 02-14-2023 RBC Ql (U) 50 /ul Negative [facility] RBC Ql (U) 0-5 SEEN /hpf 0-5 [facility] Urine clarityOrdered By: Baldomero Flynn on 02-14-2023 Clarity (U) Sl. Cloudy Clear [facility] Urine color determinationOrd ered By: Deep Flynn on 02-14-2023 Color (U) Yellow Yellow [facility] Urine glucose detectionOrder ed By: Deep Flynn on 02-14-2023 Glucose Ql (U) Normal mg/dl Normal [facility] Urine leukocyte esterase det ection by dipstickOrdered By: Deep Flynn on 02-14-2023 Leukocyte esterase Test strip Ql (U) 500 /ul Negative [facility] Urine pHOrdered By: Martín Flynn on 02-14-2023 pH (U) 7.0 [pH] 5.0 - 8.0 [facility] Urine sediment bacteria coun t by microscopy (number/high power field)Ordered By: Deep Flynn on 02-14-2023 Bacteria LM.HPF (Urine sed) [#/Area] 1 /[HPF] None Seen [facility] Urine specific gravity measu rementOrdered By: Deep Flynn on 02-14-2023 Specific gravity (U) [Rel density] 1.010 1.002-1.030 [facility] Urobilinogen Auto test strip Ql (U)Ordered By: Deep Flynn on 02-14-2023 Urobilinogen Ql (U) Normal mg/dl Normal [facility] Vital Signs Date Time Vital Sign Value Performing Clinician Faci lity 10-23-2024 22:42-0500 Body temperature 97.9 [degF] Dr. Haydee Flynn MD Work Phone: [facility] 10-23-2024 22:42-0500 Diastolic blood pressure 87 mm[Hg] Dr. Haydee Flynn MD Work Phone: [facility] 10-23-2024 22:42-0500 Heart rate 74 /min Dr. Haydee Flynn MD Work Phone: [facility] 10-23-2024 22:42-0500 Respiratory rate 18 /min Dr. Haydee Flynn MD Work Phone: [facility] 10-23-2024 22:42-0500 SaO2% (BldA) [Mass fraction] 99 % Dr. Haydee Flynn MD Work Phone: [facility] 10-23-2024 22:42-0500 Systolic blood pressure 151 mm[Hg] Dr. Haydee Flynn MD Work Phone: [facility] 10-23-2024 16:53-0500 Body height 160.[address] Haydee Flynn MD Work Phone: [facility] 10-23-2024 16:53-0500 Body mass index (BMI) [Ratio] 36.1 kg/m2 Dr. Haydee Flynn MD Work Phone: [facility] 10-23-2024 16:53-0500 Body weight 92.[address] Haydee Flynn MD Work Phone: [facility] 04-30-2024 16:06-0400 Diastolic blood pressure 106 mm[Hg] Ciera Charles MD Work Phone: [facility] 04-30-2024 16:06-0400 Heart rate 76 /min Ciera Charles MD Work Phone: [facility] 04-30-2024 16:06-0400 Systolic blood pressure 180 mm[Hg] Ciera Charles MD Work Phone: [facility] 04-13-2024 11:03-0400 Diastolic blood pressure 88 mm[Hg] Ciera Charles MD Work Phone: [facility] 04-13-2024 11:03-0400 Systolic blood pressure 150 mm[Hg] Ciera Charles MD Work Phone: [facility] 04-13-2024 11:02-0400 Heart rate 72 /min Ciera Charles MD Work Phone: [facility] 04-04-2024 11:03-0400 Body height 160 cm Reinaldo Funes MD Work Phone: [facility] 04-04-2024 11:03-0400 Body mass index (BMI) [Ratio] 34.79 kg/m2 Reinaldo Funes MD Work Phone: [facility] 04-04-2024 11:03-0400 Body weight 89.09 kg Reinaldo Funes MD Work Phone: [facility] 04-04-2024 11:03-0400 Diastolic blood pressure 90 mm[Hg] Reinaldo Funes MD Work Phone: [facility] 04-04-2024 11:03-0400 Heart rate 74 /min Reinaldo Funes MD Work Phone: [facility] 04-04-2024 11:03-0400 Systolic blood pressure 146 mm[Hg] Reinaldo Funes MD Work Phone: [facility] 03-20-2024 19:45-0400 Body temperature 97.81 [degF] Reinaldo Funes MD Work Phone: [facility] 03-20-2024 19:45-0400 Diastolic blood pressure 72 mm[Hg] Reinaldo Funes MD Work Phone: [facility] 03-20-2024 19:45-0400 Heart rate 70 /min Reinaldo Funes MD Work Phone: [facility] 03-20-2024 19:45-0400 Respiratory rate 16 /min Reinaldo Funes MD Work Phone: [facility] 03-20-2024 19:45-0400 SaO2% (BldA) [Mass fraction] 94 % Reinaldo Funes MD Work Phone: [facility] 03-20-2024 19:45-0400 Systolic blood pressure 135 mm[Hg] Reinaldo Funes MD Work Phone: [facility] 03-20-2024 10:53-0400 Body height 160 cm Reinaldo Funes MD Work Phone: [facility] 03-20-2024 10:53-0400 Body mass index (BMI) [Ratio] 34.54 kg/m2 Reinaldo Funes MD Work Phone: [facility] 03-20-2024 10:53-0400 Body weight 88.45 kg Reinaldo Funes MD Work Phone: [facility] 02-27-2024 14:01-0400 Body mass index (BMI) [Ratio] 34.37 kg/m2 Ciera Charles MD Work Phone: [facility] 02-27-2024 14:01-0400 Body weight 88 kg Ciera Charles MD Work Phone: [facility] 02-27-2024 14:01-0400 Diastolic blood pressure 99 mm[Hg] Ciera Charles MD Work Phone: [facility] 02-27-2024 14:01-0400 Heart rate 62 /min Ciera Charles MD Work Phone: [facility] 02-27-2024 14:01-0400 Systolic blood pressure 164 mm[Hg] Ciera Charles MD Work Phone: [facility] 02-08-2024 14:44-0400 Diastolic blood pressure 97 mm[Hg] Ciera Charles MD Work Phone: [facility] 02-08-2024 14:44-0400 Heart rate 71 /min Ciera Charles MD Work Phone: [facility] 02-08-2024 14:44-0400 Systolic blood pressure 158 mm[Hg] Ciera Charles MD Work Phone: [facility] 01-20-2024 14:02-0400 Body height 160 cm Reinaldo Funes MD Work Phone: [facility] 01-20-2024 14:02-0400 Body mass index (BMI) [Ratio] 34.54 kg/m2 Reinaldo Funes MD Work Phone: [facility] 01-20-2024 14:02-0400 Body weight 88.45 kg Reinaldo Funes MD Work Phone: [facility] 01-20-2024 14:02-0400 Diastolic blood pressure 97 mm[Hg] Reinaldo Funes MD Work Phone: [facility] 01-20-2024 14:02-0400 Heart rate 76 /min Reinaldo Funes MD Work Phone: [facility] 01-20-2024 14:02-0400 Systolic blood pressure 167 mm[Hg] Reinaldo Funes MD Work Phone: [facility] 12-20-2023 11:32-0400 Body height 160.[address] Haydee Flynn Work Phone: [facility] 12-20-2023 11:30-0400 Body mass index (BMI) [Ratio] 35.3 kg/m2 Dr. Haydee Flynn Work Phone: [facility] 12-20-2023 11:30-0400 Body weight 90.[address] Haydee Flynn Work Phone: [facility] 12-20-2023 11:30-0400 Diastolic blood pressure 84 mm[Hg] Dr. Haydee Flynn Work Phone: [facility] 12-20-2023 11:30-0400 Systolic blood pressure 157 mm[Hg] Dr. Haydee Flynn Work Phone: [facility] 10-31-2023 14:04-0400 Body height 160.[address] Deep Flynn Work Phone: [facility] 10-31-2023 14:03-0400 Body mass index (BMI) [Ratio] 34.5 kg/m2 Dr. Deep Flynn Work Phone: [facility] 10-31-2023 14:03-0400 Body weight 88.[address] Deep Flynn Work Phone: [facility] 10-31-2023 14:03-0400 Diastolic blood pressure 106 mm[Hg] Dr. Deep Flynn Work Phone: [facility] 10-31-2023 14:03-0400 Systolic blood pressure 173 mm[Hg] Dr. Deep Flynn Work Phone: [facility] Encounters Encounter Date Encounter Type Care Provider Facility Start: 11-01-2024 End: 11-01-[address] Haydee Flynn MD Work Phone: [facility] Work Phone: Start: 11-01-2024 End: 11-01-[address] Haydee Flynn MD -Radiology, [facility] Work Phone: Start: 11-01-2024 End: 11-01-2024 ambulatory Haydee Flynn Facility:[facility] Start: 10-23-2024 End: 10-23-2024 Emergency department patient visit Nito Doe Facility:[facility] Start: 10-16-2024 End: 10-16-[address] Haydee Flynn MD Work Phone: [facility] Work Phone: Start: 10-16-2024 End: 10-16-[address] Haydee Flynn MD -Laboratory, [facility] Start: 10-16-2024 End: 10-16-2024 ambulatory Haydee Flynn Facility:[facility] Start: 05-21-2024 End: 05-21-2024 ambulatory Haydee Flynn Facility:[facility] Start: 04-30-2024 End: 04-30-2024 Postop follow up visit related to original px Ciera Charles MD Work Phone: [facility] Comment on above: Postop check (Primar y Dx); OAB (overactive bladder) Start: 04-30-2024 End: 04-30-2024 ambulatory CIERA CHARLES [facility] Start: 04-13-2024 End: 04-13-2024 ambulatory CIERA CHARLES [facility] Start: 04-13-2024 End: 04-13-2024 Postop follow up visit related to original px Ciera Charles MD Work Phone: [facility] Comment on above: Postop check (Primar y Dx) Start: 04-04-2024 End: 04-04-2024 ambulatory REINALDO FUNES [facility] Start: 04-04-2024 End: 04-04-2024 Postop follow up visit related to original px Reinaldo Funes MD Work Phone: [facility] Comment on above: Post-operative state (Primary Dx) Start: 03-27-2024 End: 03-27-2024 Telephone encounter Reinaldo Funes MD Work Phone: [facility] Start: 03-23-2024 End: 03-23-2024 Telephone encounter Reinaldo Funes MD Work Phone: [facility] Start: 03-20-2024 End: 03-20-2024 ambulatory REINALDO FUNES [facility] Start: 03-20-2024 End: 03-20-2024 Subsequent hospital visit by physician Reinaldo Funes MD Work Phone: [facility] Comment on above: S/P hysterectomy wit h oophorectomy (Primary Dx); Incomplete uterovaginal prolapse; Cystocele, midline; Rectocele; STACEY (stress urinary incontinence, female) Start: 03-19-2024 End: 04-16-2024 Telephone encounter Ciera Charles MD Work Phone: [facility] Comment on above: Other (Please call p t and let her know if insurance covering her surgery on 03.20 She said Shyanne is supposed to get back to her. Please call pt ) Start: 03-13-2024 End: 03-13-2024 Telephone encounter Reinaldo Funes MD Work Phone: [facility] Start: 03-13-2024 End: 03-13-2024 [facility] Start: 02-28-2024 End: 02-28-2024 Telephone encounter Reinaldo Funes MD Work Phone: [facility] Comment on above: surgery scheduling ( Scheduled at [facility]) Start: 02-27-2024 End: 02-27-2024 Office outpatient new 45 minutes Ciera Charles MD Work Phone: [facility] Comment on above: Incomplete uterovagi nal prolapse (Primary Dx); Cystocele, midline; Rectocele; STACEY (stress urinary incontinence, female); OAB (overactive bladder); Abnormal urine finding Start: 02-27-2024 End: 02-27-2024 ambulatory CIERA CHARLES [facility] Start: 02-08-2024 End: 02-08-2024 Patient encounter procedure Ciera Charles MD Work Phone: [facility] Comment on above: STACEY (stress urinary incontinence, female) Start: 02-08-2024 End: 02-08-2024 [facility] Start: 01-20-2024 End: 01-20-2024 ambulatory Reinaldo Funes MD Work Phone: [facility] Start: 01-20-2024 End: 01-20-2024 Office outpatient new 30 minutes Reinaldo Funes MD Work Phone: [facility] Comment on above: Endometrial cancer ( CMS/HCC) (HCC) (Primary Dx); Urinary, incontinence, stress female; Rectocele Start: 01-18-2024 ambulatory Haydee Flynn Faci lity:[facility] Start: 01-06-2024 Telephone encounter Reinaldo Funes MD Work Phone: [facility] Start: 01-03-2024 End: 01-03-2024 ambulatory Shanique Rachel Facility:[facility] Start: 12-30-2023 End: 12-30-2023 ambulatory Shanique Gwendolyn Avendaño Facility:[facility] Start: 12-20-2023 End: 12-20-[address] Haydee Flynn Work Phone: [facility] Work Phone: Start: 12-20-2023 End: 12-20-[address] Haydee lFynn Work Phone: [facility]-Laboratory Work Phone: Start: 12-20-2023 End: 12-20-[address] Haydee Flynn Work Phone: [facility] Work Phone: Start: 12-20-2023 End: 12-20-2023 ambulatory Shanique Rachel Facility:[facility] Start: 12-20-2023 End: 12-20-2023 ambulatory Haydee Flynn Facility:[facility] Start: 11-09-2023 End: 11-09-[address] Deep Flynn Work Phone: [facility] Work Phone: Start: 11-09-2023 End: 11-09-[address] Deep Flynn Work Phone: [facility]-Outpatient Breast Imaging Work Phone: Start: 10-31-2023 End: 10-31-[address] Deep Flynn Work Phone: [facility] Work Phone: Start: 10-31-2023 End: 10-31-[address] Deep Flynn Work Phone: [facility]-Laboratory, Specimen Work Phone: Start: 10-31-2023 End: 10-31-[address] Deep Flynn Work Phone: [facility] Work Phone: Start: 09-29-2023 End: 09-29-2023 ambulatory [facility] Work Phone: Start: 09-29-2023 End: 09-29-2023 Patient encounter procedure [facility]Ultrasound, [facility] Work Phone: Start: 02-14-2023 End: 02-14-2023 ambulatory [facility] Work Phone: Start: 02-14-2023 End: 02-14-2023 Patient encounter procedure [facility], [facility] Procedures Date Procedure Procedure Detail Performing Clinician Start: 11-01-2024 Plain X-ray abdomen Dr. Haydee Flynn MD Work Phone: Start: 10-23-2024 X-ray of chest, PA a nd lateral views Dr. Haydee Flynn MD Work Phone: Start: 10-23-2024 Plain x-ray of wrist Dr Juanita Flynn MD Work Phone: Start: 04-13-2024 Urnls dip stick/tabl et rgnt non-auto w/o micrscp Ciera Charles MD Work Phone: Start: 03-20-2024 End: 03-20-2024 Colporrhaphy suture injury vagina Ciera Charles MD Work Phone: Start: 03-20-2024 End: 03-20-2024 Inj radioactive tracer for id of sentinel node Reinaldo Funes MD Work Phone: Start: 03-20-2024 End: 03-20-2024 Laps total hysterect 250 gm/< w/rmvl tube/ovary Reinaldo Funes MD Work Phone: Start: 03-20-2024 End: 03-20-2024 Repair enterocele vaginal approach spx Ciera Charles MD Work Phone: Start: 03-20-2024 End: 03-20-2024 Sling operation stress incontinence Ciera Charles MD Work Phone: Start: 03-20-2024 Antibody screen REINALDO FUNES Comment on above: Order Comment: HOLD. Specimen is valid for 3 days - nurse to verify valid specimen Performed By: #### L [id number] ####Network Architect Manager: ZOE CHRISTIAN ([id number])[facility] ([facility])[address] [place] [address] Start: 03-20-2024 ABO and Rh group [Ty pe] in Blood by Confirmatory method Reinaldo Funes MD Work Phone: Start: 03-20-2024 Basic metabolic pane l calcium total Ana Paula Nicolas [employer]TER - [employer] DES[employer] Work Phone: Start: 03-20-2024 Blood typing serolog ic abo Reinaldo Funes MD Work Phone: Start: 03-20-2024 Ecg routine ecg w/le ast 12 lds trcg only w/o i&r Ana Paula Nicolas [employer] C[employer]TER - [employer] DES[employer] Work Phone: Start: 02-27-2024 Urnls dip stick/tabl et rgnt non-auto w/o micrscp Ciera Charles MD Work Phone: Start: 11-09-2023 End: 11-09-[address] Deep davis Work Phone: Start: 09-29-2023 Pelvic echography H/O: surgery S/P hysterectomy with oophorectomy Reinaldo Funes MD Work Phone: Plan of Treatment Date Care Activity Detail Author Start: 08-05-2030 DTaP/Tdap/Td Vaccines (2 - Td or Tdap) DTaP/Tdap/Td Vaccines (2 - Td or Tdap) [facility] Start: 11-08-2024 Screening for malignant neoplasm of breast Mammogram [facility] Start: 10-23-2024 [facility] Start: 10-23-2024 End: 10-23-2024 [facility] Start: 09-03-2024 End: 09-03-2024 Patient encounter procedure 09/03/2024 1:30 PM EST Office Visit [facility] [address] [place] [phone] Ciera Charles MD [address] [place], [place] [id number] [facility] Start: 04-30-2024 End: 04-30-2024 Patient encounter procedure 04/30/2024 3:45 PM EDT Office Visit [facility] [address] [place] [address] Ciera Charles MD [address] [facility] [address] [place], [place] [id number] [facility] Start: 04-22-2024 COVID-19 Vaccine ( season) COVID-19 Vaccine ( season) [facility] Start: 04-22-2024 Influenza vaccination Influenza Vaccine (#1) [facility] Start: 04-04-2024 End: 04-04-2024 Patient encounter procedure 04/04/2024 1:45 PM EDT Office Visit [facility] [address] [place] [phone] Reinaldo Funes MD [address] [place], [place] [id number] [facility] Start: 03-20-2024 End: 03-20-2024 Admission to same day surgery center 03/20/2024 12:30 PM EDT - 03/20/2024 4:30 PM EDT Surgery [facility] OR [address] [place] [phone] Reinaldo Funes MD [address] [place], [place] [id number] ROBOTIC ASSISTED TOTAL LAPAROSCOPIC HYSTERECTOMY BILATERAL SALPINGO OOPHORECTOMY [74906 (CPT )] [facility] Comment on above: ROBOTIC ASSISTED TOTAL LAPAROSCOPIC HYST ERECTOMY BILATERAL SALPINGO OOPHORECTOMY [23403 ([facility] )] Start: 03-20-2024 End: 03-20-2024 Anterior colporraphy rpr cystocele w/cysto ANTERIOR COLPORRHAPHY REPAIR CYSTOCELE (ANTERIOR REPAIR) Incomplete uterovaginal prolapse Cystocele, midline Rectocele STACEY (stress urinary incontinence, female) 03/20/2024 12:30 PM EDT [facility] Operating Room Start: 03-20-2024 End: 03-20-2024 Cmbnd anterpost colporraphy w/cysto ANTERIOR AND POSTERIOR COLPORRHAPHY Incomplete uterovaginal prolapse Cystocele, midline Rectocele STACEY (stress urinary incontinence, female) 03/20/2024 12:30 PM EDT [facility] Operating Room Start: 03-20-2024 End: 03-20-2024 Colpopexy vaginal intraperitoneal approach COLPOPEXY VAGINAL INTRAPERITONEAL APPROACH (UTEROSCARAL, LEVATOR MYORRHAPHY) Incomplete uterovaginal prolapse Cystocele, midline Rectocele STACEY (stress urinary incontinence, female) 03/20/2024 12:30 PM EDT [facility] Operating Room Start: 03-20-2024 End: 03-20-2024 Colporrhaphy suture injury vagina COLPORRHAPHY SUTURE OF INJURY VAGINA Incomplete uterovaginal prolapse Cystocele, midline Rectocele STACEY (stress urinary incontinence, female) 03/20/2024 12:30 PM EDT [facility] Operating Room Start: 03-20-2024 End: 03-20-2024 Inj radioactive tracer for id of sentinel node LYMPHANGIOGRAPHY RADIOACTIVE TRACER FOR IDENTIFICATION SENTINEL NODE Incomplete uterovaginal prolapse Cystocele, midline Rectocele STACEY (stress urinary incontinence, female) 03/20/2024 12:30 PM EDT [facility] Operating Room Start: 03-20-2024 End: 03-20-2024 Laps total hysterect 250 gm/< w/rmvl tube/ovary ROBOTIC (XI) LAPAROSCOPY TOTAL HYSTERECTOMY FOR UTERUS 250 G OR LESS REMOVAL OF TUBE(S) AND OR OVARY(S) Incomplete uterovaginal prolapse Cystocele, midline Rectocele STACEY (stress urinary incontinence, female) 03/20/2024 12:30 PM EDT [facility] Operating Room Start: 03-20-2024 End: 03-20-2024 Post colporrhaphy rectocele w/wo perineorrhaphy POSTERIOR COLPORRHAPHY REPAIR RECTOCELE Incomplete uterovaginal prolapse Cystocele, midline Rectocele STACEY (stress urinary incontinence, female) 03/20/2024 12:30 PM EDT [facility] Operating Room Start: 03-20-2024 End: 03-20-2024 Sling operation stress incontinence SLING OPERATION FOR STRESS INCONTINENCE Incomplete uterovaginal prolapse Cystocele, midline Rectocele STACEY (stress urinary incontinence, female) 03/20/2024 12:30 PM EDT [facility] Operating Room Start: 03-20-2024 Subsequent hospital visit by physician 03/20/2024 12:30 PM EDT Hospital Encounter [facility] [address] [place] [phone] Reinaldo Funes MD [address] [place] [address] [facility] MAIN OR Start: 03-13-2024 End: 03-13-2024 Admission to establishment 03/13/2024 11:00 AM EDT Pre-Admission Testing [facility] Pre-Admit Testing [address] [place] [phone] [facility] Start: 02-27-2024 End: 02-27-2024 Patient encounter procedure 02/27/2024 1:00 PM EDT Office Visit [facility] [address] [place] [phone] Ciera Charles MD [address] [place] [address] [facility] Start: 01-20-2024 End: 01-20-2024 Patient encounter procedure 01/20/2024 2:00 PM EDT Office Visit [facility] [address] [place] [phone] Reinaldo Funes MD [address] [place], [place] [phone] [facility] Start: 04-22-2023 COVID-19 Vaccine ( season) COVID-19 Vaccine ( season) [facility] Start: 2020 RSV Immunization aged 60 or older (1 - 1-dose 60+ series) RSV Immunization aged 60 or older (1 - 1-dose 60+ series) [facility] Start: 02-09-2010 Zoster Vaccines (1 of 2) Zoster Vaccines (1 of 2) [facility] Start: 2000 Screening for malignant neoplasm of breast Mammogram [facility] Start: 02-09-1990 Screening for malignant neoplasm of cervix [facility] Start: 02-09-1981 Screening for malignant neoplasm of cervix Pap Smear [facility] Start: 02-09-1978 Diabetes mellitus screening Diabetes Screening [facility] Start: 02-09-1978 Hepatitis C screening Hepatitis C Screening [facility] Start: 1972 Depression Screening Depression Screening [facility] Start: 02-09-1961 MMR Vaccines (1 of 1 - Standard series) MMR Vaccines (1 of 1 - Standard series) [facility] Start: 1960 HIV screening HIV Screening [facility] Start: 1960 Lipid panel Lipid Panel [facility] Start: 1960 Screening for malignant neoplasm of colon [facility] Anterior colporraphy rpr cystocele w/cysto ANTERIOR COLPORRHAPHY REPAIR CYSTOCELE (ANTERIOR REPAIR) Incomplete uterovaginal prolapse Cystocele, midline Rectocele STACEY (stress urinary incontinence, female) [facility] Operating Room Bacteria identified in Urine by Culture [facility] Work Phone: Comment on above: Ordered: 02/27/2024 Colpopexy vaginal intraperitoneal approach COLPOPEXY VAGINAL INTRAPERITONEAL APPROACH (UTEROSCARAL, LEVATOR MYORRHAPHY) Incomplete uterovaginal prolapse Cystocele, midline Rectocele STACEY (stress urinary incontinence, female) [facility] Cystourethroscopy CYSTOSCOPY Inc omplete uterovaginal prolapse Cystocele, midline Rectocele STACEY (stress urinary incontinence, female) [facility] ECG 12 lead ECG 12 lead CV E CG Routine 03/20/2024 10:57 AM EDT [facility] Work Phone: MG Breast - bilatera l Screening [facility] Patient Education ED Arthralgia ED Epigastric Pain Uncertain Cause [facility] Work Phone: Patient referral [facility] Work Phone: Post colporrhaphy rectocele w/wo perineorrhaphy POSTERIOR COLPORRHAPHY REPAIR RECTOCELE Incomplete uterovaginal prolapse Cystocele, midline Rectocele STACEY (stress urinary incontinence, female) [facility] Operating [facility] Sling operation stre ss incontinence SLING OPERATION FOR STRESS INCONTINENCE Incomplete uterovaginal prolapse Cystocele, midline Rectocele STACEY (stress urinary incontinence, female) [facility] Tissue exam [email or web address] Work Phone: Comment on above: Release Upon Ordering for 1 Occurrences starting 03/20/2024 Urinalysis complete panel - Urine Complete Urinalysis Lab Routine Abnormal urine finding Ordered: 02/27/2024 [email or web address] Comment on above: Ordered: 02/27/2024 Immunizations Immunization Date Immunization Notes Care Provider Fa [facility] 08-18-2023 influenza virus vacc ine, unspecified formulation Ciera Charles MD Work Phone: [email or web address] Payers Date Payer Category Payer Self-pay [id number] 2023 Unknown [facility] [id number] 2023-Present [address] [place] [address] Commercial [id number] 2023 Unknown [id number] 2015 Unknown ANTHEM [id number] Unknown [id number] Unknown [id number] Unknown [id number] Unknown [id number] Unknown [id number] Unknown [id number] Unknown [id number] Unknown [id number] Unknown [id number] Unknown [id number] Social History Date Type Detail Facility Start: 07-18-2021 End: 12-21-2023 Tobacco smoking status SCIS Unknown if ever smoked [facility] Start: 1960 Sex Assigned At Female [facility] Start: 1960 Sex Assigned At Not on file [facility] Start: 01-20-2024 End: 04-30-2024 Gender identity Not on file [facility] Start: 01-19-2024 End: 10-23-2024 Tobacco smoking status SCIS Never smoked tobacco [facility] Start: 01-19-2024 Tobacco use and exposure Smokeless tobacco non-user [facility] Start: 01-20-2024 End: 02-27-2024 Alcohol intake Lifetime non-drinker (finding) [facility] Start: 01-20-2024 End: 04-30-2024 History of Social function [facility] Start: 03-13-2024 End: 04-30-2024 Alcoholic beverage intake Current drinker of alcohol (finding) [facility] Start: 03-13-2024 Alcohol Comment few times a year [facility] Start: 11-02-2024 End: 11-11-2024 Sex Female (finding) [facility] Medical Equipment Procedure Code Equipment Code Equipment Origin al Text Equipment Identifier Dates Sling Obtryx Ii Halo - [id number] Start: 03-20-2024 Mental Status Date Assessment Result Facility 10-23-2024 Cognitive function Level Of Cons ciousness Awake;Alert;Appropriate;Follow s Commands [facility] Work Phone: Clinical Notes 10-31-2023 to 11-02-2024 Ciera Charles MD - 04/30/2024 3:45 PM EDTTlizett Charles MD - 04/13/2024 10:00 AM EDTSnba Funes MD - 04/04/2024 11:00 AM EDTOp Note - Reinaldo Funes MD - 03/20/2024 1:42 PM EDT Note Date & Type Note Facility 11-02-2024 Radiology Diagnostic study note [facility] Imaging Services [address] [place] [address] Abd Inc Decub and/or Erect MR#: [id number] Acct: [id number] Name: YVONNE ALLEN Rep #: [id number] : 1960 F 64 From: Silver Figueroa MD PCP: Dr. Haydee Flynn MD Status: REG CLI Study:Abd Inc Decub and/or Erect Date of Exam : 11/01/24 Exam# [id number] Ordering Dr: Gil Flynn MD PROCEDURE: ABD INC DECUB AND/OR ERECT REASON FOR EXAM: PAIN TECHNIQUE: Upright and supine views of the abdomen, 2 upright and 2 supine nodes to includethe entire abdomen and pelvis, 4 total images COMPARISON: None FINDINGS: Visualized lung bases appear clear. No free air identified. Paucity of small bowel gas. Nonspecific bowel gas pattern. Some gas and stool is seen within the colon. Spondylosis. RAD/Abd Inc Decub and/or Erect IMPRESSION: Paucity of small bowel gas. Nonspecific bowel gas pattern. Some gas and stool isseen within the colon.. Reading Location: [id number] CC: Dr. 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 female who presents for a 6 week post-op check s/p: Dr. Funes Robotic hysterectomy BSO, bilateral identification of sentinel lymph nodes, bilateral pelvic lymph node dissection Dr. Bhavik Hilario's culdoplasty Anterior colporrhaphy [employer] Obtryx II transobturator midurethral sling Cystourethroscopy Rectocele repair with perineorrhaphy PFDI-20 Do you: Usually experience pressure in the lower abdomen? Yes 2 Usually experience heaviness or dullness in the pelvic area? Yes 2 Usually have a bulge or something falling out that you can see or feel in your vaginal area? No 0 Ever have to push on the vagina or around the rectum to have or complete a bowel movement? No 0 Usually experience a feeling of incomplete bladder emptying? Yes 2 Ever have to push up on a bulge in the vaginal area with your fingers to start or complete urination? No 0 Feel you need to strain too hard to have a bowel movement? No 0 Feel you have not completely emptied your bowels at the end of a bowel movement? No 0 Usually lose stool beyond your control if your stool is well formed? No 0 Usually lose stool beyond your control if your stool is loose? No 0 Usually lose gas from the rectum beyond your control? No 0 Usually have pain when you pass your stool? Yes 2 Experience a strong sense of urgency and have to mcclelland to the bathroom to have a bowel movement? No 0 Does part of your bowel ever pass through the rectum and bulge outside during or after a bowel movement? No 0 Usually experience frequent urination? Yes 2 Usually experience urine leakage associated with a feeling of urgency, that is, a strong sensation of needing to go to the bathroom? Yes 2 Usually experience urine leakage related to coughing, sneezing or laughing? No 0 Usually experience small amounts of urine leakage (that is, drops)? Yes 2 Usually experience difficulty emptying your bladder? Yes 2 Usually experience pain or discomfort in the lower abdomen or genital region? Yes 2 Warp Hauler: Monique Leon MA OBJECTIVE: BP (!) 180/106 Pulse 76 General Appearance: no acute distress, normally developed, and affect appropriate Pelvic: External Genitalia: mild perineal TTP, incision well healed with dissolving suture material present Vagina: cuff intact without visible or palpable defects, incisions well healed with dissolving suture material present, no visible or palpable sling mesh, small amount of bleeding from cuff with exam Cervix: surgically absent Urethra: normal appearing urethra with no masses, tenderness or lesions Bimanual: no palpable masses or tenderness, no cuff defects Rectovaginal: deferred Levator Ani Contraction: 1 Levator Ani Tone: normal Levator Ani Tenderness: Yes mild bilateral Procedure: The urethra was prepped with betadine. A lubricated 14F catheter was inserted and the postvoid residual urine was collected. The PVR was 40 ml. Urine dip - straight cath: neg ASSESMENT: Yvonne Allen is a 64 y.o. who is s/p: Robotic hysterectomy BSO, bilateral identification of sentinel lymph nodes, bilateral pelvic lymph node dissection Sulaiman's culdoplasty Anterior colporrhaphy [employer] Obtryx II transobturator midurethral sling Cystourethroscopy Rectocele repair with perineorrhaphy PLAN: 1. Postop check Normal postop exam May resume normal activity Continue pelvic rest until 12 weeks postop Ok to return to work without restrictions 2. OAB (overactive bladder) Discussed PMEs, lifestyle/behavioral modifications Follow up in 3 months or sooner prn Ciera Charles MD documented in this encounter [facility] 04-13-2024 History of Present illness Narrative Female Pelvic Medicine & Reconstructive Surgery, Post-Op Problem Visit Yvonne Allen is a 64 y.o. who presents for a postoperative problem. She is 3.5 week(s) s/p: 03/20/24 Dr. Funes Robotic hysterectomy BSO, bilateral identification of sentinel lymph nodes, bilateral pelvic lymph node dissection Dr. Bhavik Hilario's culdoplasty Anterior colporrhaphy [employer] Obtryx II transobturator midurethral sling Cystourethroscopy Rectocele repair with perineorrhaphy History: Here for recheck of vaginal cuff defect noted on recent postop exam with Dr. Funes. 04/04/24: On vaginal exam the anterior and posterior vaginal incisions are healing well. Small amount of drainage but no evidence of active bleeding. At the top of the vaginal cuff there is a small approximately dime sized defect with a small area of somewhat infarcted epiploica fat coming through. No evidence of any bowel prolapse. No active bleeding noted. Warp Hauler: Monique Leon MA OBJECTIVE: BP (!) 150/88 Pulse 72 General Appearance: no acute distress, normally developed, and affect appropriate Abdomen: abdomen is soft without significant tenderness, masses, organomegaly or guarding. Incisions well healed without erythema, induration, or drainage Pelvic: External Genitalia: normal appearing vulva with no masses, tenderness, or lesions, left groin incision suture removed, one suture remains but is partially epithelialized Vagina: good support. Vaginal incisions intact. At the right apex there appears to be a fold of redundant epithelium. Small amount of blood cleared with Fuentes swabs. No visible or palpable defects in the cuff. Urethra: normal appearing urethra with no masses, tenderness or lesions Bimanual: no palpable cuff defect Procedure: The urethra was prepped with betadine. A lubricated 14F catheter was inserted and the postvoid residual urine was collected. The PVR was 20 ml. Urine dip - straight cath: neg IMPRESSION: Yvonne Allen is a 64 y.o. who is postop s/p: 03/20/24 Dr. Funes Robotic hysterectomy BSO, bilateral identification of sentinel lymph nodes, bilateral pelvic lymph node dissection Dr. Bhavik Hilario's culdoplasty Anterior colporrhaphy [employer] Obtryx II transobturator midurethral sling Cystourethroscopy Rectocele repair with perineorrhaphy PLAN: 1. Postop check - Exam findings reviewed and discussed with pt. Vaginal cuff intact on exam today, no visible or palpable defect. - Precautions reviewed and discussed - Keep postop visit as scheduled, continue restrictions, pelvic rest - POCT urinalysis dipstick Ciera Charles MD documented in this encounter [facility] 04-04-2024 History of Present illness Narrative Postop visit Patient underwent robotic hysterectomy BSO lymph node sampling for endometrial adenocarcinoma as well as vaginal repair for prolapse. Patient states she is slowly getting better but is still having a lot of a cramping sensation in the pelvic area as well as some dark brown bloody drainage that has been resolving. She denies any fever chills or sweats. Denies any nausea or vomiting. A. SENTINEL LYMPH NODES, LEFT PELVIC, EXCISION: - TWO NEGATIVE LYMPH NODES (0/2) B. SENTINEL LYMPH NODE, RIGHT PELVIC, EXCISION: - ONE NEGATIVE LYMPH NODE (0/1) C. UTERUS, CERVIX, TUBES AND OVARIES, HYSTERECTOMY WITH BILATERAL SALPINGO-OOPHORECTOMY: - INVASIVE WELL-DIFFERENTIATED (FIGO GRADE 1) ENDOMETRIAL ENDOMETRIOID ADENOCARCINOMA - LEIOMYOMA at 1018 Synoptic Checklist ENDOMETRIUM 8th Edition - Protocol posted: 08/03/2023ENDOMETRIUM - All Specimens SPECIMEN Procedure Total hysterectomy and bilateral salpingo-oophorectomy TUMOR Histologic Type Endometrioid carcinoma, NOS Histologic Grade FIGO grade 1 Myometrial Invasion Present Depth of Myometrial Invasion 3 mm Myometrial Thickness 20 mm Percentage of Myometrial Invasion 15 % Uterine Serosa Involvement Not identified Lower Uterine Segment Involvement Not identified Cervical Stromal Involvement Not identified Other Tissue / Organ Involvement Not identified Lymphatic and / or Vascular Invasion Not identified REGIONAL LYMPH NODES Regional Lymph Node Status All regional lymph nodes negative for tumor cells Lymph Nodes Examined Total Number of Pelvic Nodes Examined 3 Number of Pelvic Scio Nodes Examined 3 Total Number of Para-aortic Nodes Examined 0 Number of Para-aortic Scio Nodes Examined 0 pTNM CLASSIFICATION (AJCC 8th Edition) Reporting of pT, pN, and (when applicable) pM categories is based on information available to the pathologist at the time the report is issued. As per the AJCC (Chapter 1, 8th Ed.) it is the managing physician s responsibility to establish the final pathologic stage based upon all pertinent information, including but potentially not limited to this pathology report. pT Category pT1a pN Category pN0 N Suffix (sn) FIGO STAGE FIGO Stage IA2 . MLH1: Intact nuclear expression MSH2: Intact nuclear expression MSH6: Intact nuclear expression PMS2: Intact nuclear expression On exam the abdominal incisions are healing beautifully. On vaginal exam the anterior and posterior vaginal incisions are healing well. Small amount of drainage but no evidence of active bleeding. At the top of the vaginal cuff there is a small approximately dime sized defect with a small area of somewhat infarcted epiploica fat coming through. No evidence of any bowel prolapse. No active bleeding noted. A) stage I A2 grade grade 1 endometrial cancer. A low risk for disease recurrence Small vaginal cuff defect P) follow-up with Dr. Lopez every 6 months for 5 years and annually thereafter for vaginal and pelvic exam. I will discuss the case with urogynecology to see if the patient should be seen sooner for their postop exam. Currently is not scheduled till later in April. Recommended the patient that she continue vaginal rest, most likely the small defect in the vaginal cuff will granulate in on its own. I did tell her to call me if she would have any increasing abdominal or pelvic pain, nausea, vomiting or fever. documented in this encounter [facility] 03-27-2024 Telephone encounter Note Called office, having difficulties with their fax number. Mailed out the pathology results [facility] 03-27-2024 Telephone encounter Note ----- Message from Reinaldo Funes MD sent at 03/23/2024 3:06 PM EDT ----- Plz fax to Dr lopez in [place] ----- Message ----- From: [employer] Chapis Tsai Sent: 03/23/2024 10:18 AM EDT To: Reinaldo Funes MD [facility] 03-27-2024 Miscellaneous Notes Called office, having difficulties with their fax number. Mailed out the pathology results ----- Message from Reinaldo Funes MD sent at 03/23/2024 3:06 PM EDT ----- Plz fax to Dr lopez in [place] ----- Message ----- From: [employer] Chapis Tsai Sent: 03/23/2024 10:18 AM EDT To: Reinaldo Funes MD documented in this encounter [facility] 03-23-2024 Telephone encounter Note Called with good news on path [facility] Work Phone: 03-23-2024 Miscellaneous Notes Called with good news on path documented in this encounter [facility] 03-20-2024 Note Formatting of this n ote might be different from the original. Pt alert and oriented, family at bedside, DC instructions given to family and pt, states understanding to all education given [facility] 03-20-2024 Note Formatting of this n ote might be different from the original. Pt alert and oriented, family at bedside, DC instructions given to family and pt, states understanding to all education given [facility] 03-20-2024 Note Pt alert and oriente d, family at bedside, DC instructions given to family and pt, states understanding to all education given [facility] 03-20-2024 Miscellaneous Notes Pt alert and oriented, family at bedside, DC instructions given to family and pt, states understanding to all education given Pt up to rest room with assist, urinated approx 320ml in hat. Residual check completed with 4 scans, max scan of 8ml. Pt states she is ready to get dressed and go home Patient resting comfortably, still emerging from anesthesia, ambulation was encouraged but patient unwilling at this time. Date of surgery 03/20/2024 Preoperative diagnosis endometrial cancer Postop diagnosis same uterine leiomyoma Procedure robotic hysterectomy BSO, bilateral identification of sentinel lymph nodes, bilateral pelvic lymph node dissection Surgeon Marin Anesthesia General Description of findings; the patient did have a uterine leiomyoma. No evidence of extrauterine disease was found Description of operation patient identified brought to the operating room and after ministration of general anesthetic underwent abdominal perineal vaginal prep using the yellowfin stirrups. She was placed in lithotomy position Timeout was performed antibiotics were given ICG green dye injection of the cervix at 3 and 9:00 Hernandez cath was placed in the bladder manipulated uterus with a Angela ring around the cervix. Using a knife a small incision made in the left upper quadrant using the Optiview 5 mm blunt port the abdominal cavity is entered under direct vision insufflated with CO2 and then under direct vision 3 da Cristel ports were placed across the mid abdomen. Trendelenburg was then used to displace about about the pelvis intra-abdominal expiration was normal and the da Cristel was docked. The round ligaments were coagulated divided the anterior and posterior leaves of the broad ligament open pararectal and paravesical spaces were made using firefly technology sentinel lymph nodes were detected on the right left pelvic sidewalls. There were dissected off the major vessels of the pelvis using monopolar and bipolar cautery. The ovarian vessels then skeletonized above the ureters coagulated and divided. The bladder was dissected inferiorly allowing the uterine vessels be skeletonized coagulated and divided as were the upper cardinal ligaments to the top of the ring. Colpotomy incision was then made in the uterus cervix tubes and ovaries removed out through the vagina. The cuff was left open for urogynecology procedure. Blood loss from eye surgery was less than 50 cc all the ports were removed and the defects and skin were closed with subcuticular 4 Monocryl and Dermabond. Urogynecology took over at this point. All sponges needles and instruments were reported correct at the end of my portion of the case. Date: 03/20/2024 Location: [facility] OR Name: Yvonne Allen, : 1960, Diagnosis Pre-op Diagnosis * Incomplete uterovaginal prolapse [N81.2] * Cystocele, midline [N81.11] * Rectocele [N81.6] * STACEY (stress urinary incontinence, female) [N39.3] Post-op Diagnosis * Incomplete uterovaginal prolapse [N81.2] * Cystocele, midline [N81.11] * Rectocele [N81.6] * STACEY (stress urinary incontinence, female) [N39.3] Procedures ROBOTIC ASSISTED TOTAL LAPAROSCOPIC HYSTERECTOMY BILATERAL SALPINGO OOPHORECTOMY 12897 - ND LAPS TOTAL HYSTERECT 250 GM/< W/RMVL TUBE/OVARY BILATERAL PELVIC SENTINEL LYMPH NODE BIOPSY WITH INDOCYANINE GREEN DYE PROTOCOL 92369 - ND INJ RADIOACTIVE TRACER FOR ID OF SENTINEL NODE UTEROSACRAL LIGAMENT SUSPENSION 56610 - ND COLPOPEXY VAGINAL INTRAPERITONEAL APPROACH ANTERIOR REPAIR 51822 - ND ANTERIOR COLPORRAPHY RPR CYSTOCELE W/CYSTO SLING PROCEDURE 38040 - ND SLING OPERATION STRESS INCONTINENCE VAGINAL REPAIR 18614 - ND COLPORRHAPHY SUTURE INJURY VAGINA POSSIBLE POSTERIOR REPAIR 72269 - ND POST COLPORRHAPHY RECTOCELE W/WO PERINEORRHAPHY POSSIBLE ANTERIOR AND POSTERIOR REPAIR 66315 - ND CMBND ANTERPOST COLPORRAPHY W/CYSTO Surgeons Panel 1: * Reinaldo Funes - Primary Panel 2: * Ciera Charles - Primary Procedure Summary Anesthesia: General ASA: II Estimated Blood Loss: Minimal Drains: * None in log * Specimens ID Source Type Tests Collected By Collected At [facility]? Priority Lab ID 1 Lymph Node Tissue TISSUE EXAM Reinaldo Funes MD 03/20/24 1426 No Routine Description: LEFT PELVIC SENTINEL LYMPH NODE 2 Lymph Node Tissue TISSUE EXAM Reinaldo Funes MD 03/20/24 1427 No Routine Description: RIGHT PELVIC SENTINEL LYMPH NODE 3 Uterus Tissue TISSUE EXAM Reinaldo Funes MD 03/20/24 1433 No Routine Description: UTERUS, CERVIX, BILATERAL FALLOPIAN TUBES, AND OVARIES Staff: Retail Administrative Assistant: Nico Jasso RN Relief Retail Administrative Assistant: Tisha Garcia RN Scrub Person: Amos Koehler RN [place] to Circ: Ada Garcia RN Findings: endom cancer Complications: None; patient tolerated the procedure well. Specimens Collected: Order Name Source Comment Collection Info Order Time PROTHROMBIN TIME If patient on coumadin within 4 days prior. 03/20/2024 10:38 AM BASIC METABOLIC PANEL Blood, Venous Collected By: Brit Dominique RN 03/20/2024 10:38 AM CBC (HEMOGRAM) Blood, Venous Collected By: Brit Dominique RN 03/20/2024 10:38 AM BLOOD TYPE AND SCREEN GEL Blood, Venous HOLD. Specimen is valid for 3 days - nurse to verify valid specimen Collected By: Brit Dominique RN 03/20/2024 10:38 AM HCG QUALITATIVE URINE Urine, Clean Catch Discontinue this order if: 1. patient is older than 55 years old 2. has had a prior hysterectomy 3. today's surgery is for treatment of known or suspected ectopic or loss. 4. patient has a known intrauterine but this is a needed surgery. 03/20/2024 10:38 AM TISSUE EXAM Lymph Node GRADE 1 ENDOMETRIAL CANCER, PLEASE DO MMR PROTEIN [facility] Collected By: Reinaldo Funes MD 03/20/2024 2:27 PM Wound Class: Class II: Clean-Contaminated Blood Products: None Prophylactic Antibiotics: Procedure appropriate prophylactic antibiotic(s) given within 1 hour of surgical incision (two hours if receiving Vancomycin or flouroquinolone) documented in this encounter [facility] 03-20-2024 Note Formatting of this n ote might be different from the original. Pt up to rest room with assist, urinated approx 320ml in hat. Residual check completed with 4 scans, max scan of 8ml. Pt states she is ready to get dressed and go home [facility] 03-20-2024 Note Formatting of this n ote might be different from the original. Pt up to rest room with assist, urinated approx 320ml in hat. Residual check completed with 4 scans, max scan of 8ml. Pt states she is ready to get dressed and go home [facility] 03-20-2024 Note Formatting of this n ote might be different from the original. Patient resting comfortably, still emerging from anesthesia, ambulation was encouraged but patient unwilling at this time. [facility] 03-20-2024 Note Formatting of this n ote might be different from the original. Patient resting comfortably, still emerging from anesthesia, ambulation was encouraged but patient unwilling at this time. [facility] 03-20-2024 Note Peripheral Block Time Out: 03/20/2024 1:45 PM Patient location during procedure: Procedural Start time: 03/20/2024 1:48 PM End time: 03/20/2024 1:52 PM Reason for block: at surgeon's request and post-op pain management Staffing Performed: INVESTMENT SPECIALIST Resident/INVESTMENT SPECIALIST: Gladis Renae APRN - INVESTMENT SPECIALIST Preanesthetic Checklist Completed: patient identified, IV checked, site marked, risks and benefits discussed, surgical consent, monitors and equipment checked, pre-op evaluation and timeout performed Region: [place] Primary: TAP (Bupivacaine 0.375%/ Epi 1:200,000/ Dex 0.1mg/mL 40ml divided evenly bilateral) Secondary: Upper rectus (Bupivacaine 0.375%/ Epi 1:200,000/ Dex 0.1mg/mL 20ml divided evenly bilateral) Peripheral Block Patient position: supine Prep: ChloraPrep Patient monitoring: heart rate, ekg monitor tech, continuous pulse ox and continuous capnometry O2: ETT/LMA Laterality: bilateral Injection technique: single-shot Guidance: ultrasound guided -image retained in chart, tip of the needle identified by ultraound during injection. Needle Needle: 21G X 110 mm Additional Notes 03/20/2024 1:48 PM Assessment Injection assessment: negative aspiration for heme, no paresthesia on injection and incremental injection Heart rate change: no Slow fractionated injection: yes Required Documentation: Relevant anatomy identified (Nerves, Vessels, Muscles), Negative for blood on aspiration, Local anesthetic injected incrementally with intermittent aspiration every 5 mL, Normal resistance with injection, No EKG changes noted, No symptoms of toxicity, Local anesthetic spread visualized around nerves or plane. and Local anesthetic injected without difficultyMedications zajOKVRUkzslq-uspfbidirlp-bapcizj rine (TAP) syringe - Injection 60 mL - 03/20/2024 1:48:00 PM [facility] 03-20-2024 Note Patient: Yvonne Jenkins sprague Procedure Summary Date: 03/20/24 Room / Location: [address] Operating Room Anesthesia Start: 1341 Anesthesia Stop: 1724 Procedures: ROBOTIC ASSISTED TOTAL LAPAROSCOPIC HYSTERECTOMY BILATERAL SALPINGO OOPHORECTOMY (Bilateral: Abdomen) BILATERAL PELVIC SENTINEL LYMPH NODE BIOPSY WITH INDOCYANINE GREEN DYE PROTOCOL (Bilateral) UTEROSACRAL LIGAMENT SUSPENSION ANTERIOR REPAIR (Perineum) SLING PROCEDURE (Perineum) VAGINAL REPAIR (Perineum) ANTERIOR AND POSTERIOR REPAIR (Perineum) Diagnosis: Incomplete uterovaginal prolapse Cystocele, midline Rectocele STACEY (stress urinary incontinence, female) Surgeons: Reinaldo Funes MD; Ciera Charles MD Responsible Provider: Parveen Kumar MD Anesthesia Type: general, regional ASA Status: 2 Anesthesia Type: general, regional Vitals Value Taken Time BP 109/65 03/20/24 1725 Temp 36.3 ?C (97.3 ?F) 03/20/24 1725 Pulse 67 03/20/24 1726 Resp 14 03/20/24 1725 SpO2 98 % 03/20/24 1726 Vitals shown include unfiled device data. Anesthesia Post Evaluation Patient location during evaluation: PACU Patient participation: complete - patient cannot participate Level of consciousness: sleepy but conscious Pain management: satisfactory to patient Airway patency: patent Dental Injury: no Cardiovascular status: acceptable, blood pressure returned to baseline and hemodynamically stable Respiratory status: acceptable, spontaneous ventilation, face mask and oral airway Hydration status: euvolemic Nausea/Vomiting: controlled No notable events documented. Patient can be discharged once all PACU criteria has been met. [facility] 03-20-2024 Note Patient: Yvonne srpague Procedure Summary Date: 03/20/24 Room / Location: [address] Operating Room Anesthesia Start: 1341 Anesthesia Stop: 1724 Procedures: ROBOTIC ASSISTED TOTAL LAPAROSCOPIC HYSTERECTOMY BILATERAL SALPINGO OOPHORECTOMY (Bilateral: Abdomen) BILATERAL PELVIC SENTINEL LYMPH NODE BIOPSY WITH INDOCYANINE GREEN DYE PROTOCOL (Bilateral) UTEROSACRAL LIGAMENT SUSPENSION ANTERIOR REPAIR (Perineum) SLING PROCEDURE (Perineum) VAGINAL REPAIR (Perineum) ANTERIOR AND POSTERIOR REPAIR (Perineum) Diagnosis: Incomplete uterovaginal prolapse Cystocele, midline Rectocele STACEY (stress urinary incontinence, female) Surgeons: Reinaldo Funes MD; Ciera Charles MD Responsible Provider: Parveen Kumar MD Anesthesia Type: general, regional ASA Status: 2 Anesthesia Type: general, regional Vitals Value Taken Time BP 109/65 03/20/24 1725 Temp 36.3 ?C (97.3 ?F) 03/20/24 1725 Pulse 68 03/20/24 1725 Resp 14 03/20/24 1725 SpO2 98 % 03/20/24 1725 Vitals shown include unfiled device data. Anesthesia Post Evaluation Patient location during evaluation: PACU Patient participation: complete - patient cannot participate Level of consciousness: sleepy but conscious Pain management: satisfactory to patient Multimodal analgesia pain management approach Airway patency: patent Two or more strategies used to mitigate risk of obstructive sleep apnea Cardiovascular status: acceptable and hemodynamically stable Respiratory status: acceptable, face mask, oral airway and spontaneous ventilation Hydration status: acceptable No notable events documented. MIPS #430 PONV Patient received an inhalational anesthetic (4554F) Patient exhibits three or more risk factors for PONV (4556F) Patient received at leaset 2 prophylactic Rx PONV anti-emtic agents of different classes preop and/or intraop (G9775) MIPS # 424 Perioperative Temperature Management Anesthesia time was 60 minutes or longer (4255F) Anesthesai administered was General (inhalational or TIVA) or Neuraxial block (X0424) At least one body temperature greater than 95.8F/35.5C achieved within the 30 mins immediately prior to or the 15 minutes immediately following anesthesia end time (G9771) MIPS #477 Multimodal Pain Management Not emergent case Patient was administered multimodal pain management (two or more drugs and/or interventions excluding systemic opioids) in the periopeartive period occurring at some time between 6 hours prior to anesthesia start time until discharged from PACU (G2148) MIPS #404 Anesthesiology Smoking Abstinence The patient is not a current smoker (e.g. cigarette, cigar, pipe, e-cigarette/vaping/marijuana) If no stop here (XX404) I completed my handoff to the receiving clinician during which we: 1. Identified the patient 2. Identified the responsible provider 3. Reviewed the pertinent medical history 4. Discussed the surgical course 5. Reviewed intra-op anesthesia management and issues during anesthesia 6. Set expectations for post-procedure period 7. Allowed opportunity for questions and acknowledgement of understanding. [facility] 03-20-2024 Hospital Discharge instructions Aby Olguin DO - 03/20/2024 2:31 PM EDT Please follow your post operative care instructions given to you by your Global Climate Change Researcher Oncologist's office at your pre operative visit. Please call the office with questions or concerns and be sure to follow up at your scheduled post operative visit. The following attachments cannot be sent through Care Everywhere.Cystocele and Rectocele Discharge Instructions (Fijian)Hysterectomy Discharge Instructions (Fijian)documented in this encounter [facility] 03-20-2024 Note Peripheral IV Date/Time: 03/20/2024 1:35 PM Inserted by: Tyree Norton CRNA Placement Needle size: 18 G Laterality: left Location: forearm Local anesthetic: none Site prep: alcohol Technique: ultrasound guided Attempts: 1 [facility] 03-20-2024 Note Airway Date/Time: 03/20/2024 1:50 PM Urgency: scheduled Airway not difficult General Information and Staff Patient location during procedure: Procedural Anesthesiologist: Parveen Kumar MD Resident/INVESTMENT SPECIALIST: Tyree Norton CRNA Performed: anesthesiologist Indications and Patient Condition Indications for airway management: anesthesia and airway protection Sedation level: Asleep Preoxygenated: yes Patient position: sniffing MILS maintained throughout Mask difficulty assessment: 1 - vent by mask Final Airway Details Final airway type: endotracheal airway Successful airway: ETT Cuffed: yes Successful intubation technique: direct laryngoscopy Facilitating devices/methods: intubating stylet Endotracheal tube insertion site: oral Blade: Mirian Blade size: #3 ETT size (mm): 7.0 Cormack-Lehane Classification: grade I - full view of glottis Placement verified by: chest auscultation, capnometry and palpation of cuff Measured from: lips ETT to lips (cm): 21 Number of attempts at approach: 1 [facility] 03-20-2024 Note Formatting of this n ote might be different from the original. Date of surgery 03/20/2024 Preoperative diagnosis endometrial cancer Postop diagnosis same uterine leiomyoma Procedure robotic hysterectomy BSO, bilateral identification of sentinel lymph nodes, bilateral pelvic lymph node dissection Surgeon Marin Anesthesia General Description of findings; the patient did have a uterine leiomyoma. No evidence of extrauterine disease was found Description of operation patient identified brought to the operating room and after ministration of general anesthetic underwent abdominal perineal vaginal prep using the yellowfin stirrups. She was placed in lithotomy position Timeout was performed antibiotics were given ICG green dye injection of the cervix at 3 and 9:00 Hernandez cath was placed in the bladder manipulated uterus with a Angela ring around the cervix. Using a knife a small incision made in the left upper quadrant using the Optiview 5 mm blunt port the abdominal cavity is entered under direct vision insufflated with CO2 and then under direct vision 3 da Cristel ports were placed across the mid abdomen. Trendelenburg was then used to displace about about the pelvis intra-abdominal expiration was normal and the da Rcistel was docked. The round ligaments were coagulated divided the anterior and posterior leaves of the broad ligament open pararectal and paravesical spaces were made using firefly technology sentinel lymph nodes were detected on the right left pelvic sidewalls. There were dissected off the major vessels of the pelvis using monopolar and bipolar cautery. The ovarian vessels then skeletonized above the ureters coagulated and divided. The bladder was dissected inferiorly allowing the uterine vessels be skeletonized coagulated and divided as were the upper cardinal ligaments to the top of the ring. Colpotomy incision was then made in the uterus cervix tubes and ovaries removed out through the vagina. The cuff was left open for urogynecology procedure. Blood loss from eye surgery was less than 50 cc all the ports were removed and the defects and skin were closed with subcuticular 4 Monocryl and Dermabond. Urogynecology took over at this point. All sponges needles and instruments were reported correct at the end of my portion of the case. [facility] 03-20-2024 Note Formatting of this n ote is different from the original. Date: 03/20/2024 Location: [facility] OR Name: Yvonne Allen : 1960, Diagnosis Pre-op Diagnosis * Incomplete uterovaginal prolapse [N81.2] * Cystocele, midline [N81.11] * Rectocele [N81.6] * STACEY (stress urinary incontinence, female) [N39.3] Post-op Diagnosis * Incomplete uterovaginal prolapse [N81.2] * Cystocele, midline [N81.11] * Rectocele [N81.6] * STACEY (stress urinary incontinence, female) [N39.3] Procedures ROBOTIC ASSISTED TOTAL LAPAROSCOPIC HYSTERECTOMY BILATERAL SALPINGO OOPHORECTOMY 16291 - ND LAPS TOTAL HYSTERECT 250 GM/< W/RMVL TUBE/OVARY BILATERAL PELVIC SENTINEL LYMPH NODE BIOPSY WITH INDOCYANINE GREEN DYE PROTOCOL 43400 - ND INJ RADIOACTIVE TRACER FOR ID OF SENTINEL NODE UTEROSACRAL LIGAMENT SUSPENSION 12306 - ND COLPOPEXY VAGINAL INTRAPERITONEAL APPROACH ANTERIOR REPAIR 52980 - ND ANTERIOR COLPORRAPHY RPR CYSTOCELE W/CYSTO SLING PROCEDURE 29947 - ND SLING OPERATION STRESS INCONTINENCE VAGINAL REPAIR 79110 - ND COLPORRHAPHY SUTURE INJURY VAGINA POSSIBLE POSTERIOR REPAIR 25918 - ND POST COLPORRHAPHY RECTOCELE W/WO PERINEORRHAPHY POSSIBLE ANTERIOR AND POSTERIOR REPAIR 73549 - ND CMBND ANTERPOST COLPORRAPHY W/CYSTO Surgeons Panel 1: * Reinaldo Funes - Primary Panel 2: * Ciera Charles - Primary Procedure Summary Anesthesia: General ASA: II Estimated Blood Loss: Minimal Drains: * None in log * Specimens ID Source Type Tests Collected By Collected At Frozen? Priority Lab ID 1 Lymph Node Tissue TISSUE EXAM Reinaldo Funes MD 03/20/24 1426 No Routine Description: LEFT PELVIC SENTINEL LYMPH NODE 2 Lymph Node Tissue TISSUE EXAM Reinaldo Funes MD 03/20/24 1427 No Routine Description: RIGHT PELVIC SENTINEL LYMPH NODE 3 Uterus Tissue TISSUE EXAM Reinaldo Funes MD 03/20/24 1433 No Routine Description: UTERUS, CERVIX, BILATERAL FALLOPIAN TUBES, AND OVARIES Staff: Retail Administrative Assistant: Nico Jasso RN Relief Retail Administrative Assistant: Tisha Garcia RN Scrub Person: Amos Koehler RN [place] to Circ: Ada Garcia RN Findings: endom cancer Complications: None; patient tolerated the procedure well. Specimens Collected: Order Name Source Comment Collection Info Order Time PROTHROMBIN TIME If patient on coumadin within 4 days prior. 03/20/2024 10:38 AM BASIC METABOLIC PANEL Blood, Venous Collected By: Brit Dominique RN 03/20/2024 10:38 AM CBC (HEMOGRAM) Blood, Venous Collected By: Brit Dominique RN 03/20/2024 10:38 AM BLOOD TYPE AND SCREEN GEL Blood, Venous HOLD. Specimen is valid for 3 days - nurse to verify valid specimen Collected By: Brit Dominique RN 03/20/2024 10:38 AM HCG QUALITATIVE URINE Urine, Clean Catch Discontinue this order if: 1. patient is older than 55 years old 2. has had a prior hysterectomy 3. today's surgery is for treatment of known or suspected ectopic or loss. 4. patient has a known intrauterine but this is a needed surgery. 03/20/2024 10:38 AM TISSUE EXAM Lymph Node GRADE 1 ENDOMETRIAL CANCER, PLEASE DO MMR PROTEIN [facility] Collected By: Reinaldo Funes MD 03/20/2024 2:27 PM Wound Class: Class II: Clean-Contaminated Blood Products: None Prophylactic Antibiotics: Procedure appropriate prophylactic antibiotic(s) given within 1 hour of surgical incision (two hours if receiving Vancomycin or flouroquinolone) [facility] 03-20-2024 Note Formatting of this n ote might be different from the original. Date of surgery 03/20/2024 Preoperative diagnosis endometrial cancer Postop diagnosis same uterine leiomyoma Procedure robotic hysterectomy BSO, bilateral identification of sentinel lymph nodes, bilateral pelvic lymph node dissection Surgeon Marin Anesthesia General Description of findings; the patient did have a uterine leiomyoma. No evidence of extrauterine disease was found Description of operation patient identified brought to the operating room and after ministration of general anesthetic underwent abdominal perineal vaginal prep using the yellowfin stirrups. She was placed in lithotomy position Timeout was performed antibiotics were given ICG green dye injection of the cervix at 3 and 9:00 Hernandez cath was placed in the bladder manipulated uterus with a Angela ring around the cervix. Using a knife a small incision made in the left upper quadrant using the Optiview 5 mm blunt port the abdominal cavity is entered under direct vision insufflated with CO2 and then under direct vision 3 da Cristel ports were placed across the mid abdomen. Trendelenburg was then used to displace about about the pelvis intra-abdominal expiration was normal and the da Cristel was docked. The round ligaments were coagulated divided the anterior and posterior leaves of the broad ligament open pararectal and paravesical spaces were made using firefly technology sentinel lymph nodes were detected on the right left pelvic sidewalls. There were dissected off the major vessels of the pelvis using monopolar and bipolar cautery. The ovarian vessels then skeletonized above the ureters coagulated and divided. The bladder was dissected inferiorly allowing the uterine vessels be skeletonized coagulated and divided as were the upper cardinal ligaments to the top of the ring. Colpotomy incision was then made in the uterus cervix tubes and ovaries removed out through the vagina. The cuff was left open for urogynecology procedure. Blood loss from eye surgery was less than 50 cc all the ports were removed and the defects and skin were closed with subcuticular 4 Monocryl and Dermabond. Urogynecology took over at this point. All sponges needles and instruments were reported correct at the end of my portion of the case. [facility] 03-20-2024 Note Formatting of this n ote is different from the original. Date: 03/20/2024 Location: [facility] OR Name: Yvonne Allen, : 1960, Diagnosis Pre-op Diagnosis * Incomplete uterovaginal prolapse [N81.2] * Cystocele, midline [N81.11] * Rectocele [N81.6] * STACEY (stress urinary incontinence, female) [N39.3] Post-op Diagnosis * Incomplete uterovaginal prolapse [N81.2] * Cystocele, midline [N81.11] * Rectocele [N81.6] * STACEY (stress urinary incontinence, female) [N39.3] Procedures ROBOTIC ASSISTED TOTAL LAPAROSCOPIC HYSTERECTOMY BILATERAL SALPINGO OOPHORECTOMY 71056 - ND LAPS TOTAL HYSTERECT 250 GM/< W/RMVL TUBE/OVARY BILATERAL PELVIC SENTINEL LYMPH NODE BIOPSY WITH INDOCYANINE GREEN DYE PROTOCOL 04620 - ND INJ RADIOACTIVE TRACER FOR ID OF SENTINEL NODE UTEROSACRAL LIGAMENT SUSPENSION 07232 - ND COLPOPEXY VAGINAL INTRAPERITONEAL APPROACH ANTERIOR REPAIR 70187 - ND ANTERIOR COLPORRAPHY RPR CYSTOCELE W/CYSTO SLING PROCEDURE 15280 - ND SLING OPERATION STRESS INCONTINENCE VAGINAL REPAIR 74786 - ND COLPORRHAPHY SUTURE INJURY VAGINA POSSIBLE POSTERIOR REPAIR 14789 - ND POST COLPORRHAPHY RECTOCELE W/WO PERINEORRHAPHY POSSIBLE ANTERIOR AND POSTERIOR REPAIR 55512 - ND CMBND ANTERPOST COLPORRAPHY W/CYSTO Surgeons Panel 1: * Reinaldo Funes - Primary Panel 2: * Ciera Charles - Primary Procedure Summary Anesthesia: General ASA: II Estimated Blood Loss: Minimal Drains: * None in log * Specimens ID Source Type Tests Collected By Collected At [facility]? Priority Lab ID 1 Lymph Node Tissue TISSUE EXAM Reinaldo Funes MD 03/20/24 1426 No Routine Description: LEFT PELVIC SENTINEL LYMPH NODE 2 Lymph Node Tissue TISSUE EXAM Reinaldo Funes MD 03/20/24 1427 No Routine Description: RIGHT PELVIC SENTINEL LYMPH NODE 3 Uterus Tissue TISSUE EXAM Reinaldo Funes MD 03/20/24 1433 No Routine Description: UTERUS, CERVIX, BILATERAL FALLOPIAN TUBES, AND OVARIES Staff: Retail Administrative Assistant: Nico Jasso RN Relief Retail Administrative Assistant: Tisha Garcia RN Scrub Person: Amos Koehler RN [place] to Circ: Ada Garcia RN Findings: endom cancer Complications: None; patient tolerated the procedure well. Specimens Collected: Order Name Source Comment Collection Info Order Time PROTHROMBIN TIME If patient on coumadin within 4 days prior. 03/20/2024 10:38 AM BASIC METABOLIC PANEL Blood, Venous Collected By: Brit Dominique RN 03/20/2024 10:38 AM CBC (HEMOGRAM) Blood, Venous Collected By: Brit Dominique RN 03/20/2024 10:38 AM BLOOD TYPE AND SCREEN GEL Blood, Venous HOLD. Specimen is valid for 3 days - nurse to verify valid specimen Collected By: Brit Dominique RN 03/20/2024 10:38 AM HCG QUALITATIVE URINE Urine, Clean Catch Discontinue this order if: 1. patient is older than 55 years old 2. has had a prior hysterectomy 3. today's surgery is for treatment of known or suspected ectopic or loss. 4. patient has a known intrauterine but this is a needed surgery. 03/20/2024 10:38 AM TISSUE EXAM Lymph Node GRADE 1 ENDOMETRIAL CANCER, PLEASE DO MMR PROTEIN [facility] Collected By: Reinaldo Funes MD 03/20/2024 2:27 PM Wound Class: Class II: Clean-Contaminated Blood Products: None Prophylactic Antibiotics: Procedure appropriate prophylactic antibiotic(s) given within 1 hour of surgical incision (two hours if receiving Vancomycin or flouroquinolone) [facility] 03-20-2024 Note OPERATIVE/PROCEDURE REPORT LOG ID: [id number] Surgery/Procedure Date: 03/20/2024 Incision/Procedure Start Time: 1359 Incision Close/Procedure End Time: 1712 Surgeon(s)/Proceduralist(s) and Line Service Supervisor(s): Primary: Ciera Charles MD Resident - assisting: Mily Douglas DO Procedure(s): Hilario's culdoplasty Anterior colporrhaphy [employer] Obtryx II transobturator midurethral sling Cystourethroscopy Rectocele repair with perineorrhaphy Anesthesia: General Indications: The patient is a 64 y.o. with stage 2 posterior predominant uterovaginal prolapse with cystocele and rectocele, stress urinary incontinence, and overactive bladder who had presented for consultation. On POP-Q exam point Aa was -0.5, Ba -0.5, C -7, GH 4, PB 3, TVL 10, Ap 0, Bp 0, and D -9. She desired surgical management at the time of hysterectomy by Dr. Funes. Preoperative urodynamics confirmed stress urinary incontinence. She was counseled about all the risks, benefits, alternatives, complications, indications, and personnel of the procedures performed which she accepted. Findings: Stage 2 posterior predominant uterovaginal prolapse. Good support following the procedure. Cystourethroscopy without evidence of foreign body, cystotomy, or urethrotomy. Brisk efflux from bilateral ureteral orifices. Rectal exam at the end of the procedure revealed no injury or suture in the rectum. Vaginal sweep at the end of the procedure revealed no foreign body in the vagina. Procedure Details: The patient was taken to the operating room where a surgical time-out and safety checklist were performed. The patient was then given prophylactic antibiotics and compression stockings were applied bilaterally. She underwent general anesthesia without any difficulty. She was positioned in the dorsal lithotomy position using Yellofins, making sure that her extremities were not overly extended or flexed. She was prepped and draped in the normal sterile fashion. A Hernandez catheter was inserted and the bladder was drained of all urine. She then underwent hysterectomy with Dr. Funes. See separate operative report for details. Upon examination following completion of the hysterectomy, good apical vaginal support was noted and the decision was made to perform a Hilario's culdoplasty. Allis clamps were placed on the corners of the vaginal cuff and the uterosacral ligaments were easily visualized and palpated. A 0 PDS suture was placed proximally through the posterior vaginal cuff in the midline, through the left uterosacral ligament from lateral to medial, reefed across the peritoneum of the posterior cul-de-sac, passed through the right uterosacral ligament from lateral to medial, then brought back through the posterior vaginal cuff, and held with a hemostat. Next, the cystocele repair was performed. The incised apex of the anterior vaginal wall was grasped transversely with Allis clamps and elevated. Dilute lidocaine with epinephrine was injected into the subepithelium along the midline of the anterior vaginal wall. A scalpel was used to create a midline incision from the bladder neck to the anterior vaginal cuff. Allis clamps were placed on the edges and the vaginal epithelium was dissected off the bladder bilaterally using the Cameron scissors. The anterior subepithelial tissue was plicated using 2-0 PDS imbricating sutures, reducing the cystocele. The vaginal epithelial flaps were trimmed and reapproximated using 2-0 Vicryl in a running locked fashion. The vaginal cuff was then closed using [id number] sutures of 0 Vicryl. Next, the trocar insertion sites were marked in the bilateral groin creases below the insertion of the adductor longus muscle at the level of the clitoris. Dilute lidocaine with epinephrine was injected into the subepithelium under the midurethra and lateral to the midurethra. Two 0.5 cm incisions were made at the previously marked sites in the groin. An incision was made using the scalpel through the vaginal epithelium underlying the midurethra. The Metzenbaum scissors were then used to dissect periurethral tunnels between the vaginal epithelium and the pubocervical fascia until the ischiopubic rami were encountered bilaterally. The trocar was then introduced through the groin incision, passed through the two layers of the obturator fascia, and curved around the ischiopubic ramus in a horizontal plane through the previously made midurethral vaginal incision. The lateral fornix was inspected to ensure no buttonholes had been made. The sling was then attached to the trocar and the trocar was removed allowing the sling to pass through the obturator space. The procedure was repeated on the contralateral side. At this point cystourethroscopy was performed. There was no evidence of foreign body, cystotomy, or urethrotomy. Brisk efflux was visualized from the bilateral ureteral orifices. The bladder was (more content not included)... [facility] 03-20-2024 History and physical note History Of Present Illness Yvonne Allen is a 64 y.o. female presenting or planned surgical procedure. Past Medical History She has a past medical history of Arthritis, Basal cell carcinoma, Bone tumor, Depression, Hypertension, Irritable bowel syndrome, Melanoma (HCC), Seasonal allergies, Squamous cell carcinoma in situ, and Vitamin D deficiency. Surgical History She has a past surgical history that includes Other surgical history (Left); Other surgical history (2012); laparoscopy abdomen diagnostic (historical) (1978); Tubal ligation (1993); Other surgical history (2023); Other surgical history (Right, 2023); and Dilation and curettage of uterus. Social History She reports that she has never smoked. She has never used smokeless tobacco. She reports current alcohol use. She reports that she does not use drugs. Allergies Patient has no known allergies. Medications Medications Prior to Admission Medication Sig Dispense Refill Last Dose escitalopram (Lexapro) 20 MG tablet Take 20 mg by mouth every evening. 03/19/2024 lisinopril 40 MG tablet Take 40 mg by mouth every evening. 03/19/2024 Cholecalciferol 50 MCG (1999) chewable tablet Chew daily. 03/16/2024 Review of Systems All other systems reviewed and are negative. Physical Exam Constitutional: Appearance: Normal appearance. Cardiovascular: Rate and Rhythm: Normal rate. Pulmonary: Effort: Pulmonary effort is normal. Neurological: Mental Status: She is alert. Last Recorded Vitals Blood pressure (!) 169/97, pulse 73, temperature 36.8 C (98.2 F), temperature source Temporal, resp. rate 16, height 5' 3 (1.6 m), weight 195 lb (88.5 kg), SpO2 96%. Relevant Results NA Assessment/Plan Active Problems: Incomplete uterovaginal prolapse Cystocele, midline Rectocele STACEY (stress urinary incontinence, female) To OR for planned procedure. Ciera Charles MD [facility] 03-20-2024 Note History Of Present Anthony Allen is a 64 y.o. female presenting or planned surgical procedure. Past Medical History She has a past medical history of Arthritis, Basal cell carcinoma, Bone tumor, Depression, Hypertension, Irritable bowel syndrome, Melanoma (HCC), Seasonal allergies, Squamous cell carcinoma in situ, and Vitamin D deficiency. Surgical History She has a past surgical history that includes Other surgical history (Left); Other surgical history (2012); laparoscopy abdomen diagnostic (historical) (1978); Tubal ligation (1993); Other surgical history (2023); Other surgical history (Right, 2023); and Dilation and curettage of uterus. Social History She reports that she has never smoked. She has never used smokeless tobacco. She reports current alcohol use. She reports that she does not use drugs. Allergies Patient has no known allergies. Medications Medications Prior to Admission Medication Sig Dispense Refill Last Dose escitalopram (Lexapro) 20 MG tablet Take 20 mg by mouth every evening. 03/19/2024 lisinopril 40 MG tablet Take 40 mg by mouth every evening. 03/19/2024 Cholecalciferol 50 MCG (1999) chewable tablet Chew daily. 03/16/2024 Review of Systems All other systems reviewed and are negative. Physical Exam Constitutional: Appearance: Normal appearance. Cardiovascular: Rate and Rhythm: Normal rate. Pulmonary: Effort: Pulmonary effort is normal. Neurological: Mental Status: She is alert. Last Recorded Vitals Blood pressure (!) 169/97, pulse 73, temperature 36.8 ?C (98.2 ?F), temperature source Temporal, resp. rate 16, height 5' 3 (1.6 m), weight 195 lb (88.5 kg), SpO2 96%. Relevant Results NA Assessment/Plan Active Problems: Incomplete uterovaginal prolapse Cystocele, midline Rectocele STACEY (stress urinary incontinence, female) To OR for planned procedure. Ciera Charles MD [facility] 03-20-2024 History and physical note History Of Present Illness Yvonne Allen is a 64 y.o. female presenting or planned surgical procedure. Past Medical History She has a past medical history of Arthritis, Basal cell carcinoma, Bone tumor, Depression, Hypertension, Irritable bowel syndrome, Melanoma (HCC), Seasonal allergies, Squamous cell carcinoma in situ, and Vitamin D deficiency. Surgical History She has a past surgical history that includes Other surgical history (Left); Other surgical history (2012); laparoscopy abdomen diagnostic (historical) (1978); Tubal ligation (1993); Other surgical history (2023); Other surgical history (Right, 2023); and Dilation and curettage of uterus. Social History She reports that she has never smoked. She has never used smokeless tobacco. She reports current alcohol use. She reports that she does not use drugs. Allergies Patient has no known allergies. Medications Medications Prior to Admission Medication Sig Dispense Refill Last Dose escitalopram (Lexapro) 20 MG tablet Take 20 mg by mouth every evening. 03/19/2024 lisinopril 40 MG tablet Take 40 mg by mouth every evening. 03/19/2024 Cholecalciferol 50 MCG (1999) chewable tablet Chew daily. 03/16/2024 Review of Systems All other systems reviewed and are negative. Physical Exam Constitutional: Appearance: Normal appearance. Cardiovascular: Rate and Rhythm: Normal rate. Pulmonary: Effort: Pulmonary effort is normal. Neurological: Mental Status: She is alert. Last Recorded Vitals Blood pressure (!) 169/97, pulse 73, temperature 36.8 C (98.2 F), temperature source Temporal, resp. rate 16, height 5' 3 (1.6 m), weight 195 lb (88.5 kg), SpO2 96%. Relevant Results NA Assessment/Plan Active Problems: Incomplete uterovaginal prolapse Cystocele, midline Rectocele STACEY (stress urinary incontinence, female) To OR for planned procedure. Ciera Charles MD H&P reviewed. The patient was examined and there are no changes to the H&P. Source Note - Ciera Charles MD - 02/27/2024 1:00 PM EDT Yvonne Allen presents for her preoperative visit today. Planned procedure: Pelvic exam under anesthesia, vaginal vault suspension, cystocele repair, midurethral sling, cystoscopy, rectocele repair with perineorrhaphy POP-Q 02/27/24: Aa = -0.5 Ba = -0.5 C = -7 GH = 4 PB = 3 TVL = 10 Ap = 0 Bp = 0 D = -9 UDS reviewed: Filling and Storage: Bladder sensation is normal without bladder pain, without urgency and with normal detrusor function. Bladder capacity is normal. 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 Voiding: Overall voiding function is abnormal. Urine flow is intermittent with a fluctuating flow curve. Detrusor function during voiding is normal with valsalva augmentation and a normal postvoid residual. Electromyography: Provocative maneuvers produced appropriate changes in waveforms. The EMG shows increased EMG activity with increased intraabdominal pressure. There was a decrease in the EMG activity during voiding consistent with normal function of the pelvic floor. Normal sensation and capacity. +STACEY. No DO. Void by detrusor contraction with valsalva augmentation with a normal PVR. We reviewed the alternatives to surgery before discussing the risks associated with surgery. We discussed the risks and benefits of each of the surgical procedures in detail. These risks include, but are not limited to, bleeding, transfusion, infection, injury to surrounding organs, development of postoperative stress or urge urinary incontinence, development of postoperative voiding dysfunction with need for prolonged bladder catheterization or self-catheterization, vaginally placed mesh complications, failure of the prolapse and/or continence surgery over time, and need for additional surgery. We also reviewed her urodynamic testing which showed the presence of stress urinary incontinence. I reviewed the risks and benefits of concurrent sling placement, including complications related to mesh placement as well as postoperative voiding dysfunction and urinary retention. She expressed an understanding of this and does wish to have an anti-incontinence procedure at the time of her prolapse surgery. All questions answered and informed consent was obtained. Perioperative considerations: - Will accept blood products - TO sling - +DD Ciera Charles MD documented in this encounter [facility] 03-20-2024 Attending History and physical note H&P reviewed. The patient was examined and there are no changes to the H&P. Source Note - Ciera Charles MD - 02/27/2024 1:00 PM EDT Yvonne Allen presents for her preoperative visit today. Planned procedure: Pelvic exam under anesthesia, vaginal vault suspension, cystocele repair, midurethral sling, cystoscopy, rectocele repair with perineorrhaphy POP-Q 02/27/24: Aa = -0.5 Ba = -0.5 C = -7 GH = 4 PB = 3 TVL = 10 Ap = 0 Bp = 0 D = -9 UDS reviewed: Filling and Storage: Bladder sensation is normal without bladder pain, without urgency and with normal detrusor function. Bladder capacity is normal. 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 Voiding: Overall voiding function is abnormal. Urine flow is intermittent with a fluctuating flow curve. Detrusor function during voiding is normal with valsalva augmentation and a normal postvoid residual. Electromyography: Provocative maneuvers produced appropriate changes in waveforms. The EMG shows increased EMG activity with increased intraabdominal pressure. There was a decrease in the EMG activity during voiding consistent with normal function of the pelvic floor. Normal sensation and capacity. +STACEY. No DO. Void by detrusor contraction with valsalva augmentation with a normal PVR. We reviewed the alternatives to surgery before discussing the risks associated with surgery. We discussed the risks and benefits of each of the surgical procedures in detail. These risks include, but are not limited to, bleeding, transfusion, infection, injury to surrounding organs, development of postoperative stress or urge urinary incontinence, development of postoperative voiding dysfunction with need for prolonged bladder catheterization or self-catheterization, vaginally placed mesh complications, failure of the prolapse and/or continence surgery over time, and need for additional surgery. We also reviewed her urodynamic testing which showed the presence of stress urinary incontinence. I reviewed the risks and benefits of concurrent sling placement, including complications related to mesh placement as well as postoperative voiding dysfunction and urinary retention. She expressed an understanding of this and does wish to have an anti-incontinence procedure at the time of her prolapse surgery. All questions answered and informed consent was obtained. Perioperative considerations: - Will accept blood products - TO sling - +DD Ciera Charles MD [email or web address] Work Phone: 03-20-2024 Note H&P reviewed. The pa tient was examined and there are no changes to the H&P. [email or web address] [facility] 03-19-2024 Note Patient: Yvonne sprague Procedure Information Date/Time: 03/20/24 1230 Procedures: ROBOTIC ASSISTED TOTAL LAPAROSCOPIC HYSTERECTOMY BILATERAL SALPINGO OOPHORECTOMY (Bilateral: Abdomen) - 1.[address] FUNES TIME NO NUC MED INJECTION IN OR BILATERAL PELVIC SENTINEL LYMPH NODE BIOPSY WITH INDOCYANINE GREEN DYE PROTOCOL (Bilateral) UTEROSACRAL LIGAMENT SUSPENSION ANTERIOR REPAIR (Perineum) SLING PROCEDURE (Perineum) VAGINAL REPAIR (Perineum) POSSIBLE POSTERIOR REPAIR (Perineum) POSSIBLE ANTERIOR AND POSTERIOR REPAIR (Perineum) Location: [facility] OR [address] [place] [address] Operating Room Surgeons: Reinaldo Funes MD; Ciera Charles MD Relevant Problems No relevant active problems Past Medical History: Past Medical History: No date: Arthritis No date: Basal cell carcinoma Comment: skin CA; face No date: Bone tumor Comment: left pinky finger-benign No date: Depression No date: Hypertension No date: Irritable bowel syndrome No date: Melanoma (HCC) Comment: upper left arm, lower left leg No date: Seasonal allergies No date: Squamous cell carcinoma in situ Comment: upper right arm No date: Vitamin D deficiency Past Surgical History: Past Surgical History: No date: DILATION AND CURETTAGE OF UTERUS 1978: LAPAROSCOPY ABDOMEN DIAGNOSTIC (HISTORICAL) Comment: removed cyst No date: OTHER SURGICAL HISTORY; Left Comment: melenoma removed x2 in arm (2013) and armendariz (2022) 2013: OTHER SURGICAL HISTORY Comment: bone tumor removed 2023: OTHER SURGICAL HISTORY Comment: basal cell removed of face 2023: OTHER SURGICAL HISTORY; Right Comment: right arm, squamis cell removed. 1993: TUBAL LIGATION Social History: TOBACCO: reports that she has never smoked. She has never used smokeless tobacco. ETOH: reports current alcohol use. Social History Substance and Sexual Activity Drug Use Never Family History: Family History Problem Relation Name Age of Onset Hypertension Father Heart disease Father Heart disease Mother Heart attack Mother Stroke Mother Uterine cancer Paternal Grandmother Heart attack Maternal Grandmother Diabetes Maternal Grandmother Screening: Postmenopausal Clinical information reviewed: Physical Exam Airway Mallampati: I TM distance: >3 FB Neck ROM: full Mouth Open: normal Cardiovascular Dental (+) chipped Comments: Broken upper left molar Pulmonary Abdominal Anesthesia Plan patient is NPO appropriate Any family history or previous problems with anesthesia no ASA 2 general and regional Any family history or previous problems with anesthesia no The patient is not a current smoker. Anesthetic plan and risks discussed with patient and spouse. ERAS Type General - no celebrex ARSENIO Screening Labs: Lab Results Component Value Date WBC 0-5 02/27/2024 Lab Results Component Value Date GLUCOSE NEGATIVE 02/27/2024 No echocardiogram results found for the past 14 days No results found for this or any previous visit. Equipment Requests: Additional Equipment Requests [email or web address] [facility] 03-19-2024 Telephone encounter Note Name of caller: Yvonne Contact phone number: [phone] Relationship to Patient: patient Provider: Bhavik Practice: UROGYN Chief Complaint/Reason for Call: Please call pt and let her know if insurance covering her surgery on 03.20 She said Shyanne is supposed to get back to her. Please call pt Best time of day caller can be reached: Patient advised that office/PCP has 24-48 business hours to return their call: [facility] 03-19-2024 Miscellaneous Notes Name of caller: Yvonne Contact phone number: [phone] Relationship to Patient: patient Provider: Bhavik Practice: [facility] Chief Complaint/Reason for Call: Please call pt and let her know if insurance covering her surgery on 03.20 She said Shyanne is supposed to get back to her. Please call pt Best time of day caller can be reached: Patient advised that office/PCP has 24-48 business hours to return their call: documented in this encounter [facility] 03-13-2024 Telephone encounter Note Pt inquiring if ok to have punch biopsy or any spots frozen off with dermatology tomorrow is ok before surgery 03/20 for robotic hyst. Pt informed ok to keep dermatology appt. [facility] 03-13-2024 Miscellaneous Notes Pt inquiring if ok to have punch biopsy or any spots frozen off with dermatology tomorrow is ok before surgery 03/20 for robotic hyst. Pt informed ok to keep dermatology appt. Patient has a mate ship appointment tomorrow and would like to know if a spot is found that needs removed, should she wait until after her surgery with our facility to get that done? Please contact when able, thank you documented in this encounter [facility] 03-13-2024 Telephone encounter Note Patient has a mate ship appointment tomorrow and would like to know if a spot is found that needs removed, should she wait until after her surgery with our facility to get that done? Please contact when able, thank you [facility] 02-28-2024 Telephone encounter Note PAT by phone 03.13.2024 at 11 am SX: 03.20.2024 at 12:30 pm arrival at 10:30 am post op 04.04.2024 at 1:45 pm Folder and instructions given. [facility] 02-28-2024 Miscellaneous Notes PAT by phone 03.13.2024 at 11 am SX: 03.20.2024 at 12:30 pm arrival at 10:30 am post op 04.04.2024 at 1:45 pm Folder and instructions given. documented in this encounter [facility] 02-27-2024 History of Present illness Narrative Urogynecology & Reconstructive Surgery Consult CHIEF COMPLAINT: Yvonne Allen is a 64 y.o. who presents for consultation requested by Reinaldo Funes MD for an opinion regarding stress urinary incontinence, rectocele. HISTORY OF PRESENT ILLNESS: Pt is planning to undergo hysterectomy with Dr. Funes for endometrial cancer. She also notes leakage of urine with activity and vaginal bulge symptoms. Here to discuss concomitant repair. 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 Yes 2 Usually experience heaviness or dullness in the pelvic area? Yes 1 Usually have a bulge or something falling out that you can see or feel in your vaginal area? Yes 2 Ever have to push on the vagina or around the rectum to have or complete a bowel movement? No 0 Usually experience a feeling of incomplete bladder emptying? No 0 Ever have to push up on a bulge in the vaginal area with your fingers to start or complete urination? No 0 Feel you need to strain too hard to have a bowel movement? Yes 1 Feel you have not completely emptied your bowels at the end of a bowel movement? Yes 1 Usually lose stool beyond your control if your stool is well formed? No 0 Usually lose stool beyond your control if your stool is loose? No 0 Usually lose gas from the rectum beyond your control? No 0 Usually have pain when you pass your stool? Yes 2 Experience a strong sense of urgency and have to mcclelland to the bathroom to have a bowel movement? Yes 2 Does part of your bowel ever pass through the rectum and bulge outside during or after a bowel movement? No 0 Usually experience frequent urination? Yes 2 Usually experience urine leakage associated with a feeling of urgency, that is, a strong sensation of needing to go to the bathroom? Yes 2 Usually experience urine leakage related to coughing, sneezing or laughing? Yes 4 Usually experience small amounts of urine leakage (that is, drops)? Yes 3 Usually experience difficulty emptying your bladder? No 0 Usually experience pain or discomfort in the lower abdomen or genital region? No 0 Past Surgical History: Procedure Laterality Date LAPAROSCOPY ABDOMEN DIAGNOSTIC (HISTORICAL) 1978 removed cyst OTHER SURGICAL HISTORY Left melenoma removed x2 in arm (2013) and armendariz (2022) OTHER SURGICAL HISTORY 2012 bone tumor removed OTHER SURGICAL HISTORY 2023 basal cell removed of face OTHER SURGICAL HISTORY Right 2023 right arm, squamis cell removed. TUBAL LIGATION 1993 Past Medical History: Diagnosis Date Arthritis Basal cell carcinoma Bone tumor Depression Hypertension Melanoma (HCC) Seasonal allergies Squamous cell carcinoma in situ Vitamin D deficiency Family History Problem Relation Name Age of Onset Hypertension Father Heart disease Father Heart disease Mother Heart attack Mother Stroke Mother Uterine cancer Paternal Grandmother Heart attack Maternal Grandmother Diabetes Maternal Grandmother Social History Tobacco Use Smoking status: Never Smokeless tobacco: Never Substance Use Topics Alcohol use: Never Drug use: Never Current Outpatient Medications Medication Sig Dispense Refill Cholecalciferol 50 MCG (1999) chewable tablet Chew. escitalopram (Lexapro) 20 MG tablet Take 20 mg by mouth every morning. lisinopril 40 MG tablet Take 40 mg by mouth daily. No current facility-administered medications for this visit. No Known Allergies REVIEW OF SYSTEMS General: negative Skin: negative Psychiatric: negative Neurologic: negative Endocrine: negative Cardiovascular: negative Hematologic/Lymphatic: negative Respiratory: negative Gastrointestinal: negative Musculoskeletal: positive for joint pain I have confirmed and edited as necessary, the PFSH and ROS obtained by others. Ciera Charles MD [employer] Ha[employer]: Monique Leon MA OBJECTIVE: Physical Exam BP (!) 164/99 Pulse 62 Wt 194 lb (88 kg) BMI 34.37 kg/m Constitutional: Body mass index is 34.37 kg/m . General Appearance: no acute distress, normally developed, and affect appropriate Skin: normal coloration and turgor, no rashes Lungs: unlabored breathing Heart: not examined Breasts: not examined Abdomen: abdomen is soft without significant tenderness, masses, organomegaly or guarding. Pelvic: External Genitalia: normal appearing vulva with no masses, tenderness, or lesions Vagina: Ant Wall - Stage II; Post Wall - Stage II Cervix / [place] - Stage I POP-Q: Aa = -0.5 Ba = -0.5 C = -7 GH = 4 PB = 3 TVL = 10 Ap = 0 Bp = 0 D = -9 Vaginal epithelium: atrophic Cervix: normal appearing cervix without discharge or lesions Urethra: normal appearing urethra with no masses, tenderness or lesions and hypermobile, neg DENTAL LABORATORY ASSISTANT Bimanual: uterus is normal size, shape, consistency and nontender Rectovaginal: rectocele noted Anal Sphincter: Resting Tone: Normal Sphincter Defect: No Levator Ani Tone: normal Levator Ani Tenderness: No Urine dip - voided: trace blood, trace leuk UDS reviewed: Filling and Storage: Bladder sensation is normal without bladder pain, without urgency and with normal detrusor function. Bladder capacity is normal. 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 Voiding: Overall voiding function is abnormal. Urine flow is intermittent with a fluctuating flow curve. Detrusor function during voiding is normal with valsalva augmentation and a normal postvoid residual. Electromyography: Provocative maneuvers produced appropriate changes in waveforms. The EMG shows increased EMG activity with increased intraabdominal pressure. There was a decrease in the EMG activity during voiding consistent with normal function of the pelvic floor. Normal sensation and capacity. +STACEY. No DO. Void by detrusor contraction with valsalva augmentation with a normal PVR. IMPRESSION: Yvonne Allen is a 64 y.o. with stage 2 posterior predominant uterovaginal prolapse with cystocele and rectocele, STACEY, OAB, abnormal urine dip PLAN: 1. Incomplete uterovaginal prolapse - We discussed the options for management of pelvic organ prolapse including pelvic floor muscle exercises/pelvic floor physical therapy, pessary, and surgery. For surgical options we discussed the risks and benefits of [facility] tissue vaginal repair versus sacrocolpopexy with mesh (laparoscopic, open). - Yvonne desires to proceed with a [facility] tissue vaginal repair at the time of hysterectomy with Dr. Funes. Plan for uterosacral ligament vaginal vault suspension, cystocele and rectocele repair with perineorrhaphy. - Ambulatory referral to Urogynecology 2. Cystocele, midline - As above - Ambulatory referral to Urogynecology 3. Rectocele - As above - Ambulatory referral to Urogynecology 4. STACEY (stress urinary incontinence, female) - We discussed the options for treatment of stress urinary incontinence including pelvic floor muscle exercises/pelvic floor physical therapy, continence pessary, urethral bulking, and surgery. For surgical options we discussed the synthetic midurethral sling and other surgical procedures without mesh (e.g. fascial sling, Negron). Yvonne desires to proceed with midurethral sling at the time of prolapse repair. UDS results reviewed and discussed. - POCT urinalysis dipstick 5. OAB (overactive bladder) - Discussed that additional treatment of persistent OAB symptoms may be needed following surgery. - POCT urinalysis dipstick 6. Abnormal urine finding - Urine culture - Complete Urinalysis My final recommendations will be communicated back to the requesting physician by way of shared medical record or letter via [place] mail. Ciera Charles MD Yvonne Allen presents for her preoperative visit today. Planned procedure: Pelvic exam under anesthesia, vaginal vault suspension, cystocele repair, midurethral sling, cystoscopy, rectocele repair with perineorrhaphy POP-Q 02/27/24: Aa = -0.5 Ba = -0.5 C = -7 GH = 4 PB = 3 TVL = 10 Ap = 0 Bp = 0 D = -9 UDS reviewed: Filling and Storage: Bladder sensation is normal without bladder pain, without urgency and with normal detrusor function. Bladder capacity is normal. 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 Voiding: Overall voiding function is abnormal. Urine flow is intermittent with a fluctuating flow curve. Detrusor function during voiding is normal with valsalva augmentation and a normal postvoid residual. Electromyography: Provocative maneuvers produced appropriate changes in waveforms. The EMG shows increased EMG activity with increased intraabdominal pressure. There was a decrease in the EMG activity during voiding consistent with normal function of the pelvic floor. Normal sensation and capacity. +STACEY. No DO. Void by detrusor contraction with valsalva augmentation with a normal PVR. We reviewed the alternatives to surgery before discussing the risks associated with surgery. We discussed the risks and benefits of each of the surgical procedures in detail. These risks include, but are not limited to, bleeding, transfusion, infection, injury to surrounding organs, development of postoperative stress or urge urinary incontinence, development of postoperative voiding dysfunction with need for prolonged bladder catheterization or self-catheterization, vaginally placed mesh complications, failure of the prolapse and/or continence surgery over time, and need for additional surgery. We also reviewed her urodynamic testing which showed the presence of stress urinary incontinence. I reviewed the risks and benefits of concurrent sling placement, including complications related to mesh placement as well as postoperative voiding dysfunction and urinary retention. She expressed an understanding of this and does wish to have an anti-incontinence procedure at the time of her prolapse surgery. All questions answered and informed consent was obtained. Perioperative considerations: - Will accept blood products - TO sling - +DD Ciera Charles MD documented in this encounter [facility] 02-27-2024 History of Present illness Narrative Urogynecology & Reconstructive Surgery Consult CHIEF COMPLAINT: Yvonne Allen is a 64 y.o. who presents for consultation requested by Reinaldo Funes MD for an opinion regarding stress urinary incontinence, rectocele. HISTORY OF PRESENT ILLNESS: Pt is planning to undergo hysterectomy with Dr. Funes for endometrial cancer. She also notes leakage of urine with activity and vaginal bulge symptoms. Here to discuss concomitant repair. 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 Yes 2 Usually experience heaviness or dullness in the pelvic area? Yes 1 Usually have a bulge or something falling out that you can see or feel in your vaginal area? Yes 2 Ever have to push on the vagina or around the rectum to have or complete a bowel movement? No 0 Usually experience a feeling of incomplete bladder emptying? No 0 Ever have to push up on a bulge in the vaginal area with your fingers to start or complete urination? No 0 Feel you need to strain too hard to have a bowel movement? Yes 1 Feel you have not completely emptied your bowels at the end of a bowel movement? Yes 1 Usually lose stool beyond your control if your stool is well formed? No 0 Usually lose stool beyond your control if your stool is loose? No 0 Usually lose gas from the rectum beyond your control? No 0 Usually have pain when you pass your stool? Yes 2 Experience a strong sense of urgency and have to mcclelland to the bathroom to have a bowel movement? Yes 2 Does part of your bowel ever pass through the rectum and bulge outside during or after a bowel movement? No 0 Usually experience frequent urination? Yes 2 Usually experience urine leakage associated with a feeling of urgency, that is, a strong sensation of needing to go to the bathroom? Yes 2 Usually experience urine leakage related to coughing, sneezing or laughing? Yes 4 Usually experience small amounts of urine leakage (that is, drops)? Yes 3 Usually experience difficulty emptying your bladder? No 0 Usually experience pain or discomfort in the lower abdomen or genital region? No 0 Past Surgical History: Procedure Laterality Date LAPAROSCOPY ABDOMEN DIAGNOSTIC (HISTORICAL) 1978 removed cyst OTHER SURGICAL HISTORY Left melenoma removed x2 in arm (2013) and armendariz (2022) OTHER SURGICAL HISTORY 2012 bone tumor removed OTHER SURGICAL HISTORY 2023 basal cell removed of face OTHER SURGICAL HISTORY Right 2023 right arm, squamis cell removed. TUBAL LIGATION 1993 Past Medical History: Diagnosis Date Arthritis Basal cell carcinoma Bone tumor Depression Hypertension Melanoma (HCC) Seasonal allergies Squamous cell carcinoma in situ Vitamin D deficiency Family History Problem Relation Name Age of Onset Hypertension Father Heart disease Father Heart disease Mother Heart attack Mother Stroke Mother Uterine cancer Paternal Grandmother Heart attack Maternal Grandmother Diabetes Maternal Grandmother Social History Tobacco Use Smoking status: Never Smokeless tobacco: Never Substance Use Topics Alcohol use: Never Drug use: Never Current Outpatient Medications Medication Sig Dispense Refill Cholecalciferol 50 MCG (1999 [place]) chewable tablet Chew. escitalopram (Lexapro) 20 MG tablet Take 20 mg by mouth every morning. lisinopril 40 MG tablet Take 40 mg by mouth daily. No current facility-administered medications for this visit. No Known Allergies REVIEW OF SYSTEMS General: negative Skin: negative Psychiatric: negative Neurologic: negative Endocrine: negative Cardiovascular: negative Hematologic/Lymphatic: negative Respiratory: negative Gastrointestinal: negative Musculoskeletal: positive for joint pain I have confirmed and edited as necessary, the PFSH and ROS obtained by others. Ciera Charles MD War[employer] Hauler: Monique Leon MA OBJECTIVE: Physical Exam BP (!) 164/99 Pulse 62 Wt 194 lb (88 kg) BMI 34.37 kg/m Constitutional: Body mass index is 34.37 kg/m . General Appearance: no acute distress, normally developed, and affect appropriate Skin: normal coloration and turgor, no rashes Lungs: unlabored breathing Heart: not examined Breasts: not examined Abdomen: abdomen is soft without significant tenderness, masses, organomegaly or guarding. Pelvic: External Genitalia: normal appearing vulva with no masses, tenderness, or lesions Vagina: Ant Wall - Stage II; Post Wall - Stage II Cervix / [place] - Stage I POP-Q: Aa = -0.5 Ba = -0.5 C = -7 GH = 4 PB = 3 TVL = 10 Ap = 0 Bp = 0 D = -9 Vaginal epithelium: atrophic Cervix: normal appearing cervix without discharge or lesions Urethra: normal appearing urethra with no masses, tenderness or lesions and hypermobile, neg DENTAL LABORATORY ASSISTANT Bimanual: uterus is normal size, shape, consistency and nontender Rectovaginal: rectocele noted Anal Sphincter: Resting Tone: Normal Sphincter Defect: No Levator Ani Tone: normal Levator Ani Tenderness: No Urine dip - voided: trace blood, trace leuk UDS reviewed: Filling and Storage: Bladder sensation is normal without bladder pain, without urgency and with normal detrusor function. Bladder capacity is normal. 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 Voiding: Overall voiding function is abnormal. Urine flow is intermittent with a fluctuating flow curve. Detrusor function during voiding is normal with valsalva augmentation and a normal postvoid residual. Electromyography: Provocative maneuvers produced appropriate changes in waveforms. The EMG shows increased EMG activity with increased intraabdominal pressure. There was a decrease in the EMG activity during voiding consistent with normal function of the pelvic floor. Normal sensation and capacity. +STACEY. No DO. Void by detrusor contraction with valsalva augmentation with a normal PVR. IMPRESSION: Yovnne Allen is a 64 y.o. with stage 2 posterior predominant uterovaginal prolapse with cystocele and rectocele, STACEY, OAB, abnormal urine dip PLAN: 1. Incomplete uterovaginal prolapse - We discussed the options for management of pelvic organ prolapse including pelvic floor muscle exercises/pelvic floor physical therapy, pessary, and surgery. For surgical options we discussed the risks and benefits of [facility]a tissue vaginal repair versus sacrocolpopexy with mesh (laparoscopic, open). - Yvonne desires to proceed with a [facility] ira tissue vaginal repair at the time of hysterectomy with Dr. Funes. Plan for uterosacral ligament vaginal vault suspension, cystocele and rectocele repair with perineorrhaphy. - Ambulatory referral to Urogynecology 2. Cystocele, midline - As above - Ambulatory referral to Urogynecology 3. Rectocele - As above - Ambulatory referral to Urogynecology 4. STACEY (stress urinary incontinence, female) - We discussed the options for treatment of stress urinary incontinence including pelvic floor muscle exercises/pelvic floor physical therapy, continence pessary, urethral bulking, and surgery. For surgical options we discussed the synthetic midurethral sling and other surgical procedures without mesh (e.g. fascial sling, Negron). Yvonne desires to proceed with midurethral sling at the time of prolapse repair. UDS results reviewed and discussed. - POCT urinalysis dipstick 5. OAB (overactive bladder) - Discussed that additional treatment of persistent OAB symptoms may be needed following surgery. - POCT urinalysis dipstick 6. Abnormal urine finding - Urine culture - Complete Urinalysis My final recommendations will be communicated back to the requesting physician by way of shared medical record or letter via [place] mail. Ciera Charles MD Yvonne Allen presents for her preoperative visit today. Planned procedure: Pelvic exam under anesthesia, vaginal vault suspension, cystocele repair, midurethral sling, cystoscopy, rectocele repair with perineorrhaphy POP-Q 02/27/24: Aa = -0.5 Ba = -0.5 C = -7 GH = 4 PB = 3 TVL = 10 Ap = 0 Bp = 0 D = -9 UDS reviewed: Filling and Storage: Bladder sensation is normal without bladder pain, without urgency and with normal detrusor function. Bladder capacity is normal. 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 Voiding: Overall voiding function is abnormal. Urine flow is intermittent with a fluctuating flow curve. Detrusor function during voiding is normal with valsalva augmentation and a normal postvoid residual. Electromyography: Provocative maneuvers produced appropriate changes in waveforms. The EMG shows increased EMG activity with increased intraabdominal pressure. There was a decrease in the EMG activity during voiding consistent with normal function of the pelvic floor. Normal sensation and capacity. +STACEY. No DO. Void by detrusor contraction with valsalva augmentation with a normal PVR. We reviewed the alternatives to surgery before discussing the risks associated with surgery. We discussed the risks and benefits of each of the surgical procedures in detail. These risks include, but are not limited to, bleeding, transfusion, infection, injury to surrounding organs, development of postoperative stress or urge urinary incontinence, development of postoperative voiding dysfunction with need for prolonged bladder catheterization or self-catheterization, vaginally placed mesh complications, failure of the prolapse and/or continence surgery over time, and need for additional surgery. We also reviewed her urodynamic testing which showed the presence of stress urinary incontinence. I reviewed the risks and benefits of concurrent sling placement, including complications related to mesh placement as well as postoperative voiding dysfunction and urinary retention. She expressed an understanding of this and does wish to have an anti-incontinence procedure at the time of her prolapse surgery. All questions answered and informed consent was obtained. Perioperative considerations: - Will accept blood products - TO sling - +DD Ciera Charles MD documented in this encounter [facility] 02-27-2024 Note Yvonne Allen pres ents for her preoperative visit today. Planned procedure: Pelvic exam under anesthesia, vaginal vault suspension, cystocele repair, midurethral sling, cystoscopy, rectocele repair with perineorrhaphy POP-Q 02/27/24: Aa = -0.5 Ba = -0.5 C = -7 GH = 4 PB = 3 TVL = 10 Ap = 0 Bp = 0 D = -9 UDS reviewed: Filling and Storage: Bladder sensation is normal without bladder pain, without urgency and with normal detrusor function. Bladder capacity is normal. 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 Voiding: Overall voiding function is abnormal. Urine flow is intermittent with a fluctuating flow curve. Detrusor function during voiding is normal with valsalva augmentation and a normal postvoid residual. Electromyography: Provocative maneuvers produced appropriate changes in waveforms. The EMG shows increased EMG activity with increased intraabdominal pressure. There was a decrease in the EMG activity during voiding consistent with normal function of the pelvic floor. Normal sensation and capacity. +STACEY. No DO. Void by detrusor contraction with valsalva augmentation with a normal PVR. We reviewed the alternatives to surgery before discussing the risks associated with surgery. We discussed the risks and benefits of each of the surgical procedures in detail. These risks include, but are not limited to, bleeding, transfusion, infection, injury to surrounding organs, development of postoperative stress or urge urinary incontinence, development of postoperative voiding dysfunction with need for prolonged bladder catheterization or self-catheterization, vaginally placed mesh complications, failure of the prolapse and/or continence surgery over time, and need for additional surgery. We also reviewed her urodynamic testing which showed the presence of stress urinary incontinence. I reviewed the risks and benefits of concurrent sling placement, including complications related to mesh placement as well as postoperative voiding dysfunction and urinary retention. She expressed an understanding of this and does wish to have an anti-incontinence procedure at the time of her prolapse surgery. All questions answered and informed consent was obtained. Perioperative considerations: - Will accept blood products - TO sling - +DD Ciera Charles MD [facility] 02-27-2024 Note Yvonne Allen pres ents for her preoperative visit today. Planned procedure: Pelvic exam under anesthesia, vaginal vault suspension, cystocele repair, midurethral sling, cystoscopy, rectocele repair with perineorrhaphy POP-Q 02/27/24: Aa = -0.5 Ba = -0.5 C = -7 GH = 4 PB = 3 TVL = 10 Ap = 0 Bp = 0 D = -9 UDS reviewed: Filling and Storage: Bladder sensation is normal without bladder pain, without urgency and with normal detrusor function. Bladder capacity is normal. 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 Voiding: Overall voiding function is abnormal. Urine flow is intermittent with a fluctuating flow curve. Detrusor function during voiding is normal with valsalva augmentation and a normal postvoid residual. Electromyography: Provocative maneuvers produced appropriate changes in waveforms. The EMG shows increased EMG activity with increased intraabdominal pressure. There was a decrease in the EMG activity during voiding consistent with normal function of the pelvic floor. Normal sensation and capacity. +STACEY. No DO. Void by detrusor contraction with valsalva augmentation with a normal PVR. We reviewed the alternatives to surgery before discussing the risks associated with surgery. We discussed the risks and benefits of each of the surgical procedures in detail. These risks include, but are not limited to, bleeding, transfusion, infection, injury to surrounding organs, development of postoperative stress or urge urinary incontinence, development of postoperative voiding dysfunction with need for prolonged bladder catheterization or self-catheterization, vaginally placed mesh complications, failure of the prolapse and/or continence surgery over time, and need for additional surgery. We also reviewed her urodynamic testing which showed the presence of stress urinary incontinence. I reviewed the risks and benefits of concurrent sling placement, including complications related to mesh placement as well as postoperative voiding dysfunction and urinary retention. She expressed an understanding of this and does wish to have an anti-incontinence procedure at the time of her prolapse surgery. All questions answered and informed consent was obtained. Perioperative considerations: - Will accept blood products - TO sling - +DD Ciera Charles MD [facility] 02-08-2024 History of Present illness Narrative PROCEDURE: MULTI-CHANNEL URODYNAMIC TESTING Indication: STACEY Verbal consent was obtained. Patient identity was confirmed using two identifiers. The planned procedure and procedure site were confirmed. The procedure site was not marked: single-site, no laterality. The patient was correctly positioned for the procedure. All equipment was available before the procedure was begun. Participants: patient, NONI DANIELS MA Equipment: Joe CORTEZ UROFLOWMETRY: Specifications: Performed in sitting position on Urodynamic chair. Pre-test urge to void: 03/31. (Burr: 1 = no urge to void, 5 = desire to void (no pain or fear of leakage), 10 = strong desire to void + pain and /or fear of leakage) Clinical Reliability of Uroflow per patient: [] Reliable [] Not reliable [] Unable to void Void Volume: 312 mL. PVR: 2 mL. Voiding pattern: [x] Continuous [x] Intermittent [] Interrupted [] Unable to void Qmax: 18.2 Ml/s. Urine Dipstick: NEGATIVE COMPLEX CYSTOMETRY: Specifications: Performed in urodynamic chair in the upright position. Air-charged sensor catheters placed transurethrally and transrectally. Calibration to resting pDet < 10 cm H20. Filling medium: room temperature sterile water. Fill rate: 41 mL/minute. Catheter placement note: [x] Without difficulty [] Difficult: Prolapse reduction: [] Scopette [] Speculum [] Pessary [x] N/A Filling Sensation: First sensation of fillin mL First desire to void: 141 mL Strong desire to void: 191 mL Detrusor Activity: Detrusor overactivity present: [] Yes [x] No Urine loss associated with detrusor contraction: [] Yes [] No [x] N/A Leakage perceived by patient: [] Yes [] No [x] N/A Cystometric Capacity: 269 mL. End point: [x] Patient felt full [] Overactive bladder/Urge urinary incontinence Urodynamic Stress Test: 1. Result: LEAKED Provocation method: COUGH Intravesical volume: 104 mL. Pressure Measurement: 216 cm H20. 2. Result: LEAKED Provocation method: COUGH Intravesical volume: 205 mL. Pressure Measurement: 173 cm H20. 3. Result: LEAKED Provocation method: COUGH Intravesical volume: 269 mL. Pressure Measurement: 168 cm H20. PRESSURE-FLOW STUDY: Voided Volume: 338 mL. Clinical Reliability: [x] Reliable [] Not reliable [] Unable to void Urine Flow: [x] Continuous [] Intermittent [] Interrupted [] Unable to void Maximum flow rate: 11.2 mL/s. PVR: 0 mL. Evidence of straining: [x] Yes [] No Bladder Outflow Obstruction: [] Yes [x] No SURFACE ELECTROMYOGRAPHY: Specifications: Adhesive surface electrodes placed: 2 recording electrodes on either side of the anal sphincter and 1 ground electrode. Electrode wires connected to a 12 V electromyography unit. Activity during filling: [x] Normal [] Increased [] Decreased Activity during voiding pressure study: [x] Normal [] Increased [] Decreased URETHRAL MOBILITY: [x] Present [] Minimal [] Absent INTERPRETATION: Technical Quality of Test: [x] Adequate [] Inadequate Clinical Reliability of Test: [x] Reliable [] Not reliable BLADDER STORAGE FUNCTION: Bladder sensation: [x] Normal [] Reduced [] Absent [] Increased Detrusor activity: [] Normal [] Reduced [] Absent [] Increased Bladder compliance: [x] Normal [] Reduced [] Absent [] Increased Bladder capacity: [x] Normal [] Reduced [] Absent [] Increased URETHRAL FUNCTION: [] Normal [x] Urodynamic Stress Urinary Incontinence [] Intrinsic Sphincter Deficiency [] [id number] VOIDING FUNCTION: Detrusor Function: [x] Normal [] Reduced [] Absent [] Increased Urethral Function: [x] Normal [] Absent [] Increased Results of testing reviewed with patent after completion of testing. Plan: FOLLOW UP WITH DR. CHARLES 02/27/2024 ADDENDUM Filling and Storage: Bladder sensation is normal without bladder pain, without urgency and with normal detrusor function. Bladder capacity is normal. 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 Voiding: Overall voiding function is abnormal. Urine flow is intermittent with a fluctuating flow curve. Detrusor function during voiding is normal with valsalva augmentation and a normal postvoid residual. Electromyography: Provocative maneuvers produced appropriate changes in waveforms. The EMG shows increased EMG activity with increased intraabdominal pressure. There was a decrease in the EMG activity during voiding consistent with normal function of the pelvic floor. Normal sensation and capacity. +STACEY. No DO. Void by detrusor contraction with valsalva augmentation with a normal PVR. Ciera Charles MD documented in this encounter [facility] 02-08-2024 Note PROCEDURE: MULTI-RYAN NNEL URODYNAMIC TESTING Indication: STACEY Verbal consent was obtained. Patient identity was confirmed using two identifiers. The planned procedure and procedure site were confirmed. The procedure site was not marked: single-site, no laterality. The patient was correctly positioned for the procedure. All equipment was available before the procedure was begun. Participants: patient, NONI DANIELS MA Equipment: Joe Cheatham KT COMPLEX UROFLOWMETRY: Specifications: Performed in sitting position on Urodynamic chair. Pre-test urge to void: 03/31. (Burr: 1 = no urge to void, 5 = desire to void (no pain or fear of leakage), 10 = strong desire to void + pain and /or fear of leakage) Clinical Reliability of Uroflow per patient: [] Reliable [] Not reliable [] Unable to void Void Volume: 312 mL. PVR: 2 mL. Voiding pattern: [x] Continuous [x] Intermittent [] Interrupted [] Unable to void Qmax: 18.2 Ml/s. Urine Dipstick: NEGATIVE COMPLEX CYSTOMETRY: Specifications: Performed in urodynamic chair in the upright position. Air-charged sensor catheters placed transurethrally and transrectally. Calibration to resting pDet < 10 cm H20. Filling medium: room temperature sterile water. Fill rate: 41 mL/minute. Catheter placement note: [x] Without difficulty [] Difficult: Prolapse reduction: [] Scopette [] Speculum [] Pessary [x] N/A Filling Sensation: First sensation of fillin mL First desire to void: 141 mL Strong desire to void: 191 mL Detrusor Activity: Detrusor overactivity present: [] Yes [x] No Urine loss associated with detrusor contraction: [] Yes [] No [x] N/A Leakage perceived by patient: [] Yes [] No [x] N/A Cystometric Capacity: 269 mL. End point: [x] Patient felt full [] Overactive bladder/Urge urinary incontinence Urodynamic Stress Test: 1. Result: LEAKED Provocation method: COUGH Intravesical volume: 104 mL. Pressure Measurement: 216 cm H20. 2. Result: LEAKED Provocation method: COUGH Intravesical volume: 205 mL. Pressure Measurement: 173 cm H20. 3. Result: LEAKED Provocation method: COUGH Intravesical volume: 269 mL. Pressure Measurement: 168 cm H20. PRESSURE-FLOW STUDY: Voided Volume: 338 mL. Clinical Reliability: [x] Reliable [] Not reliable [] Unable to void Urine Flow: [x] Continuous [] Intermittent [] Interrupted [] Unable to void Maximum flow rate: 11.2 mL/s. PVR: 0 mL. Evidence of straining: [x] Yes [] No Bladder Outflow Obstruction: [] Yes [x] No SURFACE ELECTROMYOGRAPHY: Specifications: Adhesive surface electrodes placed: 2 recording electrodes on either side of the anal sphincter and 1 ground electrode. Electrode wires connected to a 12 V electromyography unit. Activity during filling: [x] Normal [] Increased [] Decreased Activity during voiding pressure study: [x] Normal [] Increased [] Decreased URETHRAL MOBILITY: [x] Present [] Minimal [] Absent INTERPRETATION: Technical Quality of Test: [x] Adequate [] Inadequate Clinical Reliability of Test: [x] Reliable [] Not reliable BLADDER STORAGE FUNCTION: Bladder sensation: [x] Normal [] Reduced [] Absent [] Increased Detrusor activity: [] Normal [] Reduced [] Absent [] Increased Bladder compliance: [x] Normal [] Reduced [] Absent [] Increased Bladder capacity: [x] Normal [] Reduced [] Absent [] Increased URETHRAL FUNCTION: [] Normal [x] Urodynamic Stress Urinary Incontinence [] Intrinsic Sphincter Deficiency [] [id number]-[id number]-[id number] VOIDING FUNCTION: Detrusor Function: [x] Normal [] Reduced [] Absent [] Increased Urethral Function: [x] Normal [] Absent [] Increased Results of testing reviewed with patent after completion of testing. Plan: FOLLOW UP WITH DR. CHARLES 02/27/2024 ADDENDUM Filling and Storage: Bladder sensation is normal without bladder pain, without urgency and with normal detrusor function. Bladder capacity is normal. 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 Voiding: Overall voiding function is abnormal. Urine flow is intermittent with a fluctuating flow curve. Detrusor function during voiding is normal with valsalva augmentation and a normal postvoid residual. Electromyography: Provocative maneuvers produced appropriate changes in waveforms. The EMG shows increased EMG activity with increased intraabdominal pressure. There was a decrease in the EMG activity during voiding consistent with normal function of the pelvic floor. Normal sensation and capacity. +STACEY. No DO. Void by detrusor contraction with valsalva augmentation with a normal PVR. Ciera Charles MD [facility] 01-20-2024 History of Present illness Narrative HPI: Yvonne Allen is a pleasant 63 y.o. female who presents in consultation from Dr. Lopez for further evaluation and management of grade 2 endometrial cancer, intact mismatch repair gene proteins. She initiallypresented with postmenopausal bleeding for 10 months she describes the bleeding is mostly spotting, has not been increasing in severity, does not appear to be associated with any uterine cramping, she denies any abdominal or pelvic pain or discomfort. Denies any adenopathy. Denies any unintended weight loss. Underwent ultrasound with thickened endometrial stripe. Underwent D&C that shows a grade 2 endometrial cancer. Does have some intermittent left lower quadrant pain but she thinks this may be related to her recent physical activity. Patient is also been told by Dr. Kenney that she has a dropped bladder and rectocele. The patient does admit to difficulty with bowel movements, was never heavy digitally splint the vagina but does admit to difficulty getting her stool out because she feels it pushes up in the vagina. Also uses a pad 14/03 as she will lose small amounts of urine with cough sneeze laugh or Valsalva. 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 They are going on a family vacation the end of January. Past Medical History: Diagnosis Date Arthritis Basal cell carcinoma Bone tumor Depression Hypertension Melanoma (HCC) Seasonal allergies Vitamin D deficiency Past Surgical History: Procedure Laterality Date LAPAROSCOPY ABDOMEN DIAGNOSTIC (HISTORICAL) removed cyst OTHER SURGICAL HISTORY melenoma removed x2 OTHER SURGICAL HISTORY bone tumor removed OTHER SURGICAL HISTORY basal cell removed of face TUBAL LIGATION 1993 Family History Problem Relation Name Age of Onset Heart disease Mother Hypertension Father Heart disease Father Social History Socioeconomic History Marital status: Single Tobacco Use Smoking status: Never Smokeless tobacco: Never Substance and Sexual Activity Alcohol use: Never Drug use: Never Current Outpatient Medications Medication Sig Dispense Refill Cholecalciferol 50 MCG (1999) chewable tablet Chew. escitalopram (Lexapro) 20 MG tablet Take 20 mg by mouth every morning. lisinopril 40 MG tablet Take 40 mg by mouth daily. allopurinol (Zyloprim) 100 MG tablet Take 200 mg by mouth daily. No current facility-administered medications for this visit. Allergies as of 01/20/2024 (No Known Allergies) Review of Systems: Review of Systems Constitutional: Negative for appetite change and unexpected weight change. Gastrointestinal: Negative for abdominal distention, abdominal pain and blood in stool. Genitourinary: Positive for vaginal bleeding. Negative for pelvic pain. Stress incontinence, occasional difficulty with bowel movements Hematological: Negative for adenopathy. BP (!) 167/97 Pulse 76 Ht 1.6 m (5' 3) Wt 88.5 kg (195 lb) BMI 34.54 kg/m Physical Exam: Physical Exam Vitals and nursing note reviewed. Exam conducted with a delivery mgr present. Constitutional: Appearance: She is obese. Cardiovascular: Rate and Rhythm: Normal rate and regular rhythm. Pulmonary: Effort: Pulmonary effort is normal. Breath sounds: Normal breath sounds. Abdominal: General: Abdomen is flat. There is no distension. Palpations: Abdomen is soft. There is no mass. Tenderness: There is no abdominal tenderness. Genitourinary: General: Normal vulva. Exam position: Lithotomy position. Labia: Right: No lesion. Left: No lesion. Urethra: No urethral lesion. Vagina: Prolapsed vaginal collier present. No tenderness. Cervix: Normal. Uterus: Normal. Adnexa: Right adnexa normal and left adnexa normal. Comments: Patient does have vaginal laxity, there is loss of urine with Valsalva with descent of the bladder neck. She also has a rectocele that protrudes out to the introitus with Valsalva. Lymphadenopathy: Upper Body: Right upper body: No supraclavicular adenopathy. Left upper body: No supraclavicular adenopathy. Lower Body: No right inguinal adenopathy. No left inguinal adenopathy. Skin: General: Skin is warm and dry. Neurological: Mental Status: She is alert. Psychiatric: Mood and Affect: Mood normal. Behavior: Behavior normal. Labs: No components found for: CBC No components found for: CMP Pathology: Report has been reviewed showing grade 2 endometrial cancer with intact mismatch repair gene proteins : ASSESSMENT/PLAN: Diagnosis Plan 1. Endometrial cancer (CMS/HCC) ([facility]) Ambulatory referral to Urogynecology 2. Urinary, incontinence, stress female Ambulatory referral to Urogynecology 3. Rectocele Ambulatory referral to Urogynecology Discussed proceeding with robotic hysterectomy BSO lymph node sampling for endometrial cancer. We also discussed having her seen by urogynecology team for possible repair of rectocele as well as possible urethral sling. The patient like to get both surgeries done at the same time. I did discuss the risk of hysterectomy with bleeding infection and damage to other organs. Also discussed the potential need for adjuvant therapy for her uterine cancer. The patient and her daughter are going occasionally in the January so we will probably schedule surgery for early February. If she would notice any increase in the vaginal bleeding she is to call me immediately so that we can perform the cancer surgery. Total time today spent in coordination of care with urogynecology referral coordination of surgical scheduling [id number] counseling with patient and review of multiple medical records from the referring doctor was 35 minutes documented in this encounter [facility] 01-20-2024 Note HPI: Yvonne Allen is a pleasant 63 y.o. female who presents in consultation from Dr. Lopez for further evaluation and management of grade 2 endometrial cancer, intact mismatch repair gene proteins. She initiallypresented with postmenopausal bleeding for 10 months she describes the bleeding is mostly spotting, has not been increasing in severity, does not appear to be associated with any uterine cramping, she denies any abdominal or pelvic pain or discomfort. Denies any adenopathy. Denies any unintended weight loss. Underwent ultrasound with thickened endometrial stripe. Underwent D&C that shows a grade 2 endometrial cancer. Does have some intermittent left lower quadrant pain but she thinks this may be related to her recent physical activity. Patient is also been told by Dr. Kenney that she has a dropped bladder and rectocele. The patient does admit to difficulty with bowel movements, was never heavy digitally splint the vagina but does admit to difficulty getting her stool out because she feels it pushes up in the vagina. Also uses a pad 24/7 as she will lose small amounts of urine with cough sneeze laugh or Valsalva. 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 They are going on a family vacation the end of January. Past Medical History: Diagnosis Date Arthritis Basal cell carcinoma Bone tumor Depression Hypertension Melanoma (HCC) Seasonal allergies Vitamin D deficiency Past Surgical History: Procedure Laterality Date LAPAROSCOPY ABDOMEN DIAGNOSTIC (HISTORICAL) removed cyst OTHER SURGICAL HISTORY melenoma removed x2 OTHER SURGICAL HISTORY bone tumor removed OTHER SURGICAL HISTORY basal cell removed of face TUBAL LIGATION 1993 Family History Problem Relation Name Age of Onset Heart disease Mother Hypertension Father Heart disease Father Social History Socioeconomic History Marital status: Single Tobacco Use Smoking status: Never Smokeless tobacco: Never Substance and Sexual Activity Alcohol use: Never Drug use: Never Current Outpatient Medications Medication Sig Dispense Refill Cholecalciferol 50 MCG (1999 [place]) chewable tablet Chew. escitalopram (Lexapro) 20 MG tablet Take 20 mg by mouth every morning. lisinopril 40 MG tablet Take 40 mg by mouth daily. allopurinol (Zyloprim) 100 MG tablet Take 200 mg by mouth daily. No current facility-administered medications for this visit. Allergies as of 01/20/2024 (No Known Allergies) Review of Systems: Review of Systems Constitutional: Negative for appetite change and unexpected weight change. Gastrointestinal: Negative for abdominal distention, abdominal pain and blood in stool. Genitourinary: Positive for vaginal bleeding. Negative for pelvic pain. Stress incontinence, occasional difficulty with bowel movements Hematological: Negative for adenopathy. BP (!) 167/97 Pulse 76 Ht 1.6 m (5' 3) Wt 88.5 kg (195 lb) BMI 34.54 kg/m? Physical Exam: Physical Exam Vitals and nursing note reviewed. Exam conducted with a delivery mgr present. Constitutional: Appearance: She is obese. Cardiovascular: Rate and Rhythm: Normal rate and regular rhythm. Pulmonary: Effort: Pulmonary effort is normal. Breath sounds: Normal breath sounds. Abdominal: General: Abdomen is flat. There is no distension. Palpations: Abdomen is soft. There is no mass. Tenderness: There is no abdominal tenderness. Genitourinary: General: Normal vulva. Exam position: Lithotomy position. Labia: Right: No lesion. Left: No lesion. Urethra: No urethral lesion. Vagina: Prolapsed vaginal collier present. No tenderness. Cervix: Normal. Uterus: Normal. Adnexa: Right adnexa normal and left adnexa normal. Comments: Patient does have vaginal laxity, there is loss of urine with Valsalva with descent of the bladder neck. She also has a rectocele that protrudes out to the introitus with Valsalva. Lymphadenopathy: Upper Body: Right upper body: No supraclavicular adenopathy. Left upper body: No supraclavicular adenopathy. Lower Body: No right inguinal adenopathy. No left inguinal adenopathy. Skin: General: Skin is warm and dry. Neurological: Mental Status: She is alert. Psychiatric: Mood and Affect: Mood normal. Behavior: Behavior normal. Labs: No components found for: CBC No components found for: CMP Pathology: Report has been reviewed showing grade 2 endometrial cancer with intact mismatch repair gene proteins : ASSESSMENT/PLAN: Diagnosis Plan 1. Endometrial cancer (CMS/HCC) (HCC) Ambulatory referral to Urogynecology 2. Urinary, incontinence, stress female Ambulatory referral to Urogynecology 3. Rectocele Ambulatory referral to Urogynecology Discussed proceeding with robotic hysterectomy BSO lymph node sampling for endometrial cancer. We also discussed having her seen by urogynecology team for possible repair of rectocele as well as possible ureth (more content not included)... [facility] 01-17-2024 Telephone encounter Note Patient would like a callback to get scheduled for a new patient appointment, thank you [facility] 01-17-2024 Miscellaneous Notes Patient would like a callback to get scheduled for a new patient appointment, thank you Tried to call patient. Just kept ringing. Will try again. documented in this encounter [facility] 01-06-2024 Telephone encounter Note Tried to call patient. Just kept ringing. Will try again. [facility] 01-06-2024 Miscellaneous Notes Tried to call patient. Just kept ringing. Will try again. documented in this encounter [facility] 01-03-2024 Note [facility] Medical Records Department [address] [place] [address] History Physical Exam 01/03/24 0934 MR#: [id number] Acct: [id number] Name: YVONNE ALLEN Rep #: [id number] : 1960 63 From: Shanique Rachel DO PCP: Dr. 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 Is patient in pain?: No Allergies No Known Allergies Allergy (Verified 12/20/23 11:30) Medications escitalopram oxalate 20 mg tablet 20 mg PO DAILY 11/16/20 [History Confirmed 12/20/23] cholecalciferol (vitamin D3) 50 mcg (2,000 unit) capsule 50 mcg PO DAILY 10/31/23 [History Confirmed 12/20/23] lisinopril 40 mg tablet 40 mg PO DAILY 10/31/23 [History Confirmed 12/20/23] Is last menstrual period known: No Post menopausal: No Patient : No : No PFSH Medical History Arthritis Basal cell carcinoma Bone tumor Depression with anxiety HTN (hypertension) Melanoma Seasonal allergies Squamous cell carcinoma Vitamin D deficiency Surgical History H/O squamous cell carcinoma excision Hx of melanoma excision S/P laparotomy S/P tubal ligation Social History Smoking Status: Never smoker alcohol intake: never substance use type: does not use caffeine: Yes what type of physical activity do you participate in: none seatbelt use: always do you feel safe at home: Yes additional social history: - Gene HPI d c Details: YVONNE ALLEN is a 63 year old who presents for postmenopausal bleeding and pre-op exam. She has been menopausal for 10 years and for the last year she has had on and off spotting red and brown blood. She admits that she has not had a pap or pelvic exam for several years and also has not gone for a mammogram in several years either. Ultrasound shows the following: FINDINGS: UTERUS: Anteverted. The uterus measures 9.1 x 5.3 x 4.2 cm. There is a mass in the posterior wall of the uterus measuring about 2.2 x 2.2 x 2.2 cm consistent with small uterine fibroid. The endometrial stripe measures 18 mm in AP diameter which is abnormally thickened for postmenopausal patient. Nabothian cyst seen in the cervix. RIGHT OVARY: The right ovary is not visualized. LEFT OVARY: Left ovary measures 2.6 x 1.2 x 0.8 cm. Non-enlarged, normal echogenicity. There is normal arterial inflow and venous outflow present in the left ovary. FREE FLUID: None. History 5 Elective abortions Hx Para 3 Spontaneous abortions Hx # Term Pregnancies Ectopic pregnancies Hx # Pregnancies Multiple births # of living children Past Pregnancies Del. Date Name GA/Weeks Outcome Route Bth Weight Gen Labor Lgth Anesthesia Del Locatn Provider FOB Unknown Lisset Unknown Shilpa Unknown Kaitline ROS Const ROS Unobtainable: All systems reviewed are unremarkable except as noted in H Resp Resp: Reports system reviewed and no additional complaints, except as documented; Denies cough GI GI: Reports as per HPI Psych Psych: Reports system reviewed and no additional complaints, except as documented Exam Const General: cooperative, healthy appearing, comfortable and no acute distress Resp Effort Inspection: normal respiratory effort Skin General: no rashes or lesions noted Psych Appearance: grossly normal Speech and Movement: speech and movement normal Coding Level of Care Code Off vis,est,level 4 Diagnoses Thickened endometrium R93.89 Postmenopausal bleeding N95.0 Assessment and Plan Assessment and Plan (1) Thickened endometrium: Status: Acute (2) Postmenopausal bleeding: Status: Acute Plan: After discussing the patient's diagnosis and treatment plan options, patient wishes to proceed with surgical management. I have discussed with the patient the risks, benefits, and alternatives of the procedure which include but are not limited to risks of anesthesia, bleeding, infection, possible damage to bowel, bladder, or surrounding vasculature which could lead to additional surgery to evaluate any complications. Patient agrees to procedure and wishes to proceed. ACOG/uptodate references given for additional information regarding procedure. plan for hysteroscopy dilation and curettage Orders: Orders CBC W/Diff, Automated Today N95.0 - Postmenopausal bleeding, R93.89 - Abnormal findings on diagnostic imaging of other specified body st (more content not included)... [facility] 10-31-2023 Note [facility] Pap Smear Specimen Adequacy October 31, 2023 11:59pm Comment . Satisfactory for evaluation. Endocervical component may not bedistinguished in cases of atrophy. Comment on above: Satisfactory for deepak luation. Endocervical component may not bedistinguished in cases of atrophy. 10-31-2023 Note [facility] Pap Smear Specimen Adequacy October 31, 2023 11:59pm Comment . Satisfactory for evaluation. Endocervical component may not bedistinguished in cases of atrophy. Comment on above: Satisfactory for deepak luation. Endocervical component may not bedistinguished in cases of atrophy. 10-31-2023 Note [facility] Pap Smear Specimen Adequacy October 31, 2023 11:59pm Comment . Satisfactory for evaluation. Endocervical component may not bedistinguished in cases of atrophy. Comment on above: Satisfactory for deepak luation. Endocervical component may not bedistinguished in cases of atrophy. Evaluation note No assessment information availa ble [facility] Work Phone: Evaluation note Diagnosis Onset Date Postmenopausal bleeding acut e Thickened endometrium acute [facility] Work Phone: Evaluation note* Diagnosis Onset Date Resolution Status Postmenopausal bleeding acut e Thickened endometrium acute Postmenopausal bleeding acut e Thickened endometrium acute [facility] Work Phone: Evaluation note* Diagnosis Endometrial cancer (CMS/HCC) (HCC)- Primary Malignant neoplasm of corpus uteri, except isthmus Urinary, incontinence, stress female Female stress incontinence Rectocele documented in this encounter [facility]* Diagnosis STACEY (stress urinary incontinence, female) documented in this encounter [facility]* Diagnosis Incomplete uterovaginal prolapse- Primary Uterovaginal prolapse, incomplete Cystocele, midline Rectocele STACEY (stress urinary incontinence, female) OAB (overactive bladder) Abnormal urine finding [facility] Diagnosis Incomplete uterovaginal prolapse- Primary Uterovaginal prolapse, incomplete Cystocele, midline Rectocele STACEY (stress urinary incontinence, female) OAB (overactive bladder) Abnormal urine finding Incomplete uterovaginal prolapse Uterovaginal prolapse, incomplete Cystocele, midline Rectocele STACEY (stress urinary incontinence, female) Incomplete uterovaginal prolapse Uterovaginal prolapse, incomplete Cystocele, midline Rectocele STACEY (stress urinary incontinence, female) [facility] Diagnosis S/P hysterectomy with oophorectomy- Primary Acquired absence of both cervix and uterus Incomplete uterovaginal prolapse Uterovaginal prolapse, incomplete Cystocele, midline Rectocele STACEY (stress urinary incontinence, female) Incomplete uterovaginal prolapse Uterovaginal prolapse, incomplete Cystocele, midline Rectocele STACEY (stress urinary incontinence, female) [facility]* Diagnosis Post-operative state- Primary Other postprocedural status [facility] Diagnosis Postop check- Primary Follow-up examination, following unspecified surgery [facility] Diagnosis Postop check- Primary Follow-up examination, following unspecified surgery OAB (overactive bladder) [facility] Consultation (Urgent) - Pending Review Specialty Diagnoses / Procedures Referred By Kee powell Referred To Contact Urology / Urogynecology Diagnoses Endometrial cancer (CMS/HCC) (HCC) Urinary, incontinence, stress female Rectocele Procedures [place] OFFICE/OUTPATIENT [facility] 60 MINUTES Reinaldo Funes MD [address] [place] [address] [facility] [facility] [address] [facility] [address] [place] [address] Referral ID Status Reason Start Date Expiration Date Visits Requested Visits Authorized [id number] Pending Review Specialty Services Required 01/20/2024 01/19/2025 1 1 [facility] for referral (narrative)No reason for referral information availableWD[facility]lap [facility] Work Phone: Advance Directives Advance Directive Response Recorded Date/ Time Living Will No July 18 1:06pm Power of Guidance Counselor No July 18, 2021 1:06pm Advance Directive Response Recorded Date/ Time Living Will No July 18 021 12:06pm Power of Guidance Counselor No July 18, 2021 12:06pm Advance Directive Response Recorded Date/ Time Living Will No December 21, 2023 10 :05am Power of Guidance Counselor No December 21, 2023 10:05am Date Activated Date Inactivated Comments 03/20/2024 10:38 AM 03/20/2024 10:41 PM Date Activated Date Inactivated Comments 03/20/2024 10:38 AM 03/20/2024 10:41 PM Advance Directive Response Recorded Date/ Time Living Will No October 23, 2024 7:41pm Power of Guidance Counselor No October 23 7:41pm Advance Directive Response Recorded Date/ Time Living Will No October 23, 2024 7:41pm Do you have a Healthcare Power of Guidance Counselor? No October 23, 2024 7:41pm Chief Complaint and Reason for Visit Chief Complaint BLEEDING Chief Complaint BLEEDING Probable EMB, Ref by Dr Flynn. Declined sooner Reason for Visit Postmenopausal bleed ing Thickened endometrium Chief Complaint BLEEDING Probable EMB, Ref by Dr Flynn. Declined sooner SCREENING Reason for Visit Postmenopausal bleed ing Thickened endometrium Chief Complaint BLEEDING Probable EMB, Ref by Dr Flynn. Declined sooner SCREENING d&c INT LABS Reason for Visit Postmenopausal bleed ing Thickened endometrium Postmenopausal bleeding Thickened endometrium Chief Complaint Admit Date GEN. ILLNESS October 23, 2024 4:52 pm Summary Purpose Family History No Family History Records FoundNo Family History Records Found Additional Source Comments Care Teams (unrecognized sec tion and content) Team Status: Active Member Role Status Dates Dr. Deep Flynn MD Family Provider Active Dr. Deep Flynn MD Primary Care Provider Activ e Team Status: Inactive Member Role Status Dates Dr. Deep Flynn MD Primary Care Provider, [facility] Active Team Status: Inactive Member Role Status Dates Dr. Deep Flynn MD Primary Care Provider, Attending Provider, Referring Provider Active Team Status: Inactive Member Role Status Dates Dr. Deep Flynn MD Primary Care Provider, Refe rring Provider Active Dr. Shanique Rachel DO Attending Provider Activ e Team Status: Inactive Member Role Status Dates Dr. Deep Flynn MD Primary Care Provider Activ e Dr. Shanique Rachel DO Attending Provider, Refe rring Provider Active Team Status: Active Member Role Status Dates Dr. Haydee Flynn MD Family Provider Active Dr. Haydee Flynn MD Primary Care Provider Acti ve Team Status: Inactive Member Role Status Dates Dr. Haydee Flynn MD Primary Care Provider, Ref erring Provider Active Dr. Shanique Rachel DO Attending Provider Activ e Team Status: Inactive Member Role Status Dates Dr. Haydee Flynn MD Primary Care Provider, Attending Provider, Referring Provider Active Team Status: Inactive Member Role Status Dates Dr. Haydee Flynn MD Primary Care Provider Acti ve Dr. Shanique Rachel DO Attending Provider, Refe rring Provider Active Rod Straightener Relationship Specialty Start Date End Date Reinaldo Funes MD [address] [facility] [address] [place] [address] Consulting Physician Gynecologic Oncology 01/06/24 Rod Straightener Relationship Specialty Start Date End Date Reinaldo Funes MD [address] [facility] [address] [place] [address] Consulting Physician Gynecologic Oncology 01/06/24 Rod Straightener Relationship Specialty Start Date End Date Haydee Flynn [address] [place] [phone] PCP - General Family Medicine 01/20/24 Reinaldo Funes MD [address] [facility] [address] [place] [address] Consulting Physician Gynecologic Oncology 01/06/24 Rod Straightener Relationship Specialty Start Date End Date Haydee Flynn [address] [facility] [address] [place] [phone] PCP - General Family Medicine 01/20/24 Reinaldo Funes MD [address] [place] [address] Consulting Physician Gynecologic Oncology 01/06/24 Rod Straightener Relationship Specialty Start Date End Date Haydee Flynn [address] [facility] [address] [place] [phone] PCP - General Family Medicine 01/20/24 Reinaldo Funes MD [address] [place] [address] Consulting Physician Gynecologic Oncology 01/06/24 Rod Straightener Relationship Specialty Start Date End Date Haydee Flynn [address] [facility] [address] [place] [phone] PCP - General Family Medicine 01/20/24 Reinaldo Funes MD [address] [place] [address] Consulting Physician Gynecologic Oncology 01/06/24 Rod Straightener Relationship Specialty Start Date End Date Haydee Flynn [address] [facility] [address] [place] [phone] PCP - General Family Medicine 01/20/24 Reinaldo Funes MD [address] [place] [address] Consulting Physician Gynecologic Oncology 01/06/24 Rod Straightener Relationship Specialty Start Date End Date Haydee Flynn [address] [facility] [address] [place] [phone] PCP - General Family Medicine 01/20/24 Reinaldo Funes MD [address] [place] [address] Consulting Physician Gynecologic Oncology 01/06/24 Rod Straightener Relationship Specialty Start Date End Date Haydee Flynn [address] [facility] [address] [place] [phone] PCP - General Family Medicine 01/20/24 Reinaldo Funes MD [address] [facility] [address] [place] [address] Consulting Physician Gynecologic Oncology 01/06/24 Rod Straightener Relationship Specialty Start Date End Date Haydee Flynn [address] [facility] [address] [place] [phone] PCP - General Family Medicine 01/20/24 Reinaldo Funes MD [address] [facility] [address] [place] [address] Consulting Physician Gynecologic Oncology 01/06/24 Rod Straightener Relationship Specialty Start Date End Date Haydee Flynn [address] [facility] [address] [place] [phone] PCP - General Family Medicine 01/20/24 Reinaldo Funes MD [address] [facility] [address] [place] [address] Consulting Physician Gynecologic Oncology 01/06/24 Rod Straightener Relationship Specialty Start Date End Date Haydee Flynn [address] [facility] [address] [place] [address] PCP - General Family Medicine 01/20/24 Reinaldo Funes MD [address] [facility] [address] [place] [address] Consulting Physician Gynecologic Oncology 01/06/24 Rod Straightener Relationship Specialty Start Date End Date Haydee Flynn [address] [facility] [address] [place] [phone] PCP - General Family Medicine 01/20/24 Reinaldo Funes MD [address] [facility] [address] [place] [address] Consulting Physician Gynecologic Oncology 01/06/24 Team Status: Active Member Role Status Dates Dr. Haydee Flynn MD Primary Care Provider Acti ve Team Status: Inactive Member Role Status Dates Dr. Haydee Flynn MD Primary Care Provider Acti ve Start: October 16, 2024 End: October 16, 2024 Dr. Haydee Flynn MD Attending Provider Active Start: October 16, 2024 End: October 16, 2024 Dr. Haydee Flynn MD Referring Provider Active Start: October 16, 2024 End: October 16, 2024 Team Status: Inactive Member Role Status Dates Dr. Haydee Flynn MD Primary Care Provider Acti ve Start: October 23, 2024 End: October 23, 2024 Dr. Nito Doe DO Emergency Provider Active Start: October 23, 2024 End: October 23, 2024 Team Status: Active Member Role Status Dates Dr. Haydee Flynn MD Primary Care Provider Acti ve Start: November 01, 2024 Dr. Haydee Flynn MD Attending Provider Active Start: November 01, 2024 Dr. Haydee Flynn MD Referring Provider Active Start: November 01, 2024 Team Status: Inactive Member Role Status Dates Dr. Haydee Flynn MD Primary Care Provider Acti ve Start: October 23, 2024 End: October 23, 2024 Dr. Nito Doe , Attending Provider Active Start: October 23, 2024 End: October 23, 2024 Dr. Nito Doe , Emergency Provider Active Start: October 23, 2024 End: October 23, 2024 Team Status: Inactive Member Role Status Dates Dr. Haydee Flynn MD Primary Care Provider Acti ve Start: November 01, 2024 End: November 01, 2024 Dr. Haydee Flynn MD Attending Provider Active Start: November 01, 2024 End: November 01, 2024 Dr. Haydee Flynn MD Referring Provider Active Start: November 01, 2024 End: November 01, 2024 Goals (unrecognized section and content) Goals may be documented in a n alternate sectionGoals may be documented in an alternate sectionGoals may be documented in an alternate sectionGoals may be documented in an alternate sectionGoals may be documented in an alternate sectionGoals may be documented in an alternate sectionGoals may be documented in an alternate section Reason for Visit (unrecogniz ed section and content) Reason Comments Endometrial Cancer Specialty Diagnoses / Procedures [facility]erred To Contact Gynecologic Oncology Diagnoses Malignant neoplasm of endometrium (HCC) Procedures ND OFFICE/OUTPATIENT NEW HIGH MDM 60 MINUTES Juan Antonio Lopez [address] [place] [address] [facility] Edger T[facility] Onc [address] [facility] [address] [place] [phone] Referral ID Status Reason Start Date Expiration Date V isits Requested Visits Authorized [id number] Pending Review 01/06/2024 01/05/2025 1 1 Reason Comments Procedure UDS- DR. CHARLES Reason Comments New Patient STACEY. Some urge incon t. Some urgency and frequency. Maybe not emptying completely. Sometimes hard to make bowel movement. Sometimes feel pressure or bulge in vagina. Specialty Diagnoses / Procedures Referred By Contac t Referred To Contact Urology / Urogynecology Diagnoses Endometrial cancer (CMS/HCC) (HCC) Urinary, incontinence, stress female Rectocele Procedures ND OFFICE/OUTPATIENT NEW HIGH MDM 60 MINUTES Reinaldo Funes MD [address] [facility] [address] [place] [address] [facility] [address] [place] [address] Referral ID Status Reason Start Date Expiration Date V isits Requested Visits Authorized [id number] Closed Specialty Services Required 01/20/2024 01/19/2025 1 1 Reason Onset Date Comments surgery scheduling 02/28/2024 Scheduled at [facility] Specialty Diagnoses / Procedures Referred By Kee powell Referred To Contact Diagnoses Incomplete uterovaginal prolapse Cystocele, midline Rectocele STACEY (stress urinary incontinence, female) Procedures ND LAPS TOTAL HYSTERECT 250 GM/< W/RMVL TUBE/OVARY ND INJ RADIOACTIVE TRACER FOR ID OF SENTINEL NODE ND COLPOPEXY VAGINAL INTRAPERITONEAL APPROACH ND ANTERIOR COLPORRAPHY RPR CYSTOCELE W/CYSTO ND SLING OPERATION STRESS INCONTINENCE ND COLPORRHAPHY SUTURE INJURY VAGINA ND POST COLPORRHAPHY RECTOCELE W/WO PERINEORRHAPHY ND CMBND ANTERPOST COLPORRAPHY W/CYSTO ROBOTIC ASSISTED TOTAL LAPAROSCOPIC HYSTERECTOMY BILATERAL SALPINGO OOPHORECTOMY BILATERAL PELVIC SENTINEL LYMPH NODE BIOPSY WITH INDOCYANINE GREEN DYE PROTOCOL UTEROSACRAL LIGAMENT SUSPENSION ANTERIOR REPAIR SLING PROCEDURE VAGINAL REPAIR POSSIBLE POSTERIOR REPAIR POSSIBLE ANTERIOR AND POSTERIOR REPAIR Reinaldo Funes MD [address] [facility] [address] [place] [address] [facility] Main [place] [address] [place] [address] Referral ID Status Reason Start Date Expiration Date Visits Re quested Visits Authorized [id number] 1 1 Reason Comments Post-op Visit Reason Comments Post-op Reason Onset Date Comments Other 03/19/2024 Please call pt a nd let her know if insurance covering her surgery on 03.20 She said Shyanne is supposed to get back to her. Please call pt Scheduled Active and Recently Administ ered Medications (unrecognized section and content) Medication Order 03/18/2024 03/19/2024 03/20/2024 acetaminophen (Tylenol) tablet 1,000 mg (COMPLETED) 1,000 mg, Oral, Once, On Tue03/20/24 at 1045, For 1 dose, Preprocedure, Administer 60 minutes prior to surgery. 1106 (Given - Provid er: Brit Dominique RN) ceFAZolin in dextrose 4% (Ancef) IVPB 2,000 mg (COMPLETED) 2,000 mg, IntraVENous, Administer over 30 Minutes, Once, On Tue03/20/24 at 1045, For 1 dose, Preprocedure, Administer within 1 hour prior to incision. premix bag, Suspected Indication (Select all that apply): Surgical Prophylaxis 1352 (Given - Provid er: Tyree Norton CRNA)1709 (Anesthesia Volume Adjustment - Provider: Tyree Norton CRNA) famotidine (Pepcid) tablet 20 mg (COMPLETED)(Linked Group 1) 20 mg, Oral, Once, On Tue03/20/24 at 1045, For 1 dose, Preprocedure, IV or Oral 1106 (Given - Provid er: Brit Dominique RN) sodium chloride 0.9% (NS) flush 10 mL 10 mL, IntraVENous, Every 12 hours scheduled (2 times per day), First dose on Tue03/20/24 at 2100, Recovery (only) 2100 (Canceled Entry - Provider: Automatic Discharge Provider - Comment: Automatically canceled at discontinue of medication order) sodium chloride 0.9% (NS) flush 5-40 mL 5-40 mL, IntraVENous, Every 12 hours, First dose on Tue03/20/24 at 1045, Preprocedure, For Line Patency: Peripheral IV = 5 mL; Midline or Central Line = 10 mL/lumen. If following IV push medication, administer flush at same rate as the IV push. Flush volume is determined by type of infusion therapy being given. For non-viscous solutions use: Peripheral IV = 5 mL Midline or Central Line = 10 mL/lumen For viscous solutions (i.e. blood components, parenteral nutrition, contrast media, or after obtaining blood sample) use: Peripheral IV = 10 mL Midline or Central Line = 20 mL/lumen 1045 (Canceled Entry - Provider: Automatic Discharge Provider - Comment: Automatically canceled at discontinue of medication order) Continuous Medication Order 03/18/2024 03/19/2024 03/20/2024 lactated Ringer's (LR) infusion 50 mL/hr, IntraVENous, Continuous, Starting on Tue03/20/24 at 1045, Preprocedure, Upon admission to sameday - please start iv if patient does not have iv access. Use 500ml NS for patients on dialysis. 1112 (New Bag - Prov ider: Brit Dominique RN)1342 (Continued by Anesthesia - Provider: Tyree Norton CRNA)1709 (Anesthesia Volume Adjustment - Provider: Tyree Norton CRNA) lactated ringers infusion 125 mL/hr, IntraVENous, Continuous, Starting on Tue03/20/24 at 1730, Recovery (only) 1730 (Canceled Entry - Provider: Automatic Discharge Provider - Comment: Automatically canceled at discontinue of medication order) PRN Medication Order 03/18/2024 03/19/2024 03/20/2024 ALPRAZolam (Xanax) disintegrating tablet 0.25 mg (COMPLETED) 0.25 mg, Oral, Once PRN, anxiety, Starting on Tue03/20/24 at 1038, For 1 dose, Preprocedure, Please do not administer prior to obtaining consent and/or history and physical. 1106 (Given - Provid er: Brit Dominique RN) diphenhydrAMINE (BENADryl) injection 12.5 mg 12.5 mg, IntraVENous, Once PRN, itching, Starting on Tue03/20/24 at 1723, For 1 dose, Recovery (only) fentaNYL (Sublimaze) injection 25 mcg 25 mcg, IntraVENous, Every 5 min PRN, moderate pain (4-6), Starting on Tue03/20/24 at 1723, For 3 doses, Recovery (only), Phase I and Phase II- Initial therapy for moderate pain (4-6). Restricted to a 90 minute time frame starting when the patient can verbally state their pain score. If after 2 doses the pain score does not decrease by more than one point, then call the provider. If oral meds are utilized, do not return to initial therapy medications. fentaNYL (Sublimaze) injection 50 mcg 50 mcg, IntraVENous, Every 5 min PRN, severe pain (7-10), Starting on Tue03/20/24 at 1723, For 3 doses, Recovery (only), Phase I and Phase II- Initial therapy for severe pain (7-10). Restricted to a 90 minute time frame starting when the patient can verbally state their pain score. If after 2 doses the pain score does not decrease by more than one point, then call the provider. If oral meds are utilized, do not return to initial therapy medications. hydrALAZINE (Apresoline) injection 5 mg(Linked Group 2) 5 mg, IntraVENous, Every 15 min PRN, high blood pressure, for SBP greater than 160 mmHg for 2 consecutive measurements taken from different sites, Starting on Tue03/20/24 at 1723, For 2 doses, Recovery (only), PRN for SBP > 160 for 2 consecutive measurements, and if one of the following conditions is met: 1) If IV labetolol is ineffective. 2) If HR is under 60. 3) If patient has heart block, COPD or asthma. If both labetalol and hydralazine ineffective, notify anesthesia provider. indocyanine green (IC-Green) injection (CANCELED) As needed, Starting on Tue03/20/24 at 1416, Intraprocedure 1416 (Given - Provid er: Reinaldo Funes MD - Comment: 25 MG OF INDOCYANINE GREEN MIXED WITH 20 ML OF STERILE WATER INJECTED 10 ML) labetalol (Normodyne,Trandate) injection 5 mg(Linked Group 2) 5 mg, IntraVENous, Every 10 min PRN, high blood pressure, for SBP greater than 160 mmHg for 2 consecutive measurements taken from different sites., Starting on Tue03/20/24 at 1723, For 2 doses, Recovery (only), PRN for SBP >160 for 2 consecutive measurements, if HR is 60 or greater. If beta ferny is contraindicated (HR less than 60, heart block, COPD or asthma) use hydralazine IV order. lidocaine-EPINEPHrine (Xylocaine W/EPI) 0.5 %-[id number] injection (CANCELED) As needed, Starting on Tue03/20/24 at 1707, Intraprocedure 1707 (Given - Provid er: Ciera Charles MD) ondansetron (Zofran) injection 4 mg 4 mg, IntraVENous, Once PRN, nausea, Starting on Tue03/20/24 at 1723, For 1 dose, Recovery (only), Initial antiemetic therapy. oxyCODONE (Roxicodone) immediate release tablet 5 mg (COMPLETED)(Linked Group 3) 5 mg, Oral, PRN, moderate pain (4-6), Starting on Tue03/20/24 at 1723, For 1 dose, Recovery (only), PHASE II 1845 (Given - Provid er: Min Hernandez RN) sodium chloride 0.9 % bolus 500 mL 500 mL, IntraVENous, at 1,000 mL/hr, Administer over 0.5 Hours, PRN, Anti-nausea, Starting on Tue03/20/24 at 1723, Recovery (only), Indications: Anti-nausea sodium chloride 0.9 % infusion 5-250 mL/hr, IntraVENous, PRN, if patient receiving piggyback infusions and maintenance fluids are not ordered OR KVO fluids to protect IV site / prevent frequent line interruptions / long duration, Starting on Tue03/20/24 at 1038, Preprocedure, For piggyback infusion, administer at same rate as piggyback for a total of 25 mL. Enter 25 mL into dose field and piggyback rate into rate field of order. If piggyback is infusing at a rate less than 100 mL/hr, enter 25 mL into dose field and 100 mL/hr into rate field of order. For KVO fluids, enter rate of 20 mL/hr or less into rate field of order. sodium chloride 0.9 % infusion 5-250 mL/hr, IntraVENous, PRN, if patient receiving piggyback infusions and maintenance fluids are not ordered OR KVO fluids to protect IV site / prevent frequent line interruptions/ long duration, Starting on Tue03/20/24 at 1723, Recovery (only), For piggyback infusion, administer at same rate as piggyback for a total of 25 mL. Enter 25 mL into dose field and piggyback rate into rate field of order. If piggyback is infusing at a rate less than 100 mL/hr, enter 25 mL into dose field and 100 mL/hr into rate field of order. For KVO fluids, enter rate of 20 mL/hr or less into rate field of order. sodium chloride 0.9 % irrigation solution (CANCELED) As needed, Starting on Tue03/20/24 at 1416, Intraprocedure 1416 (Given - Provid er: Reinaldo Funes MD - Comment: [employer]CTION COMPANY CONTROLLER) sodium chloride 0.9% (NS) flush 10 mL 10 mL, IntraVENous, PRN, line care, Starting on Tue03/20/24 at 1723, Recovery (only), After every IV line use sodium chloride 0.9% (NS) flush 5-40 mL 5-40 mL, IntraVENous, PRN, line care, After every IV line use, Starting on Tue03/20/24 at 1038, Preprocedure, For Line Patency: Peripheral IV = 5 mL; Midline or Central Line = 10 mL/lumen. If following IV push medication, administer flush at same rate as the IV push. Flush volume is determined by type of infusion therapy being given. For non-viscous solutions use: Peripheral IV = 5 mL Midline or Central Line = 10 mL/lumen For viscous solutions (i.e. blood components, parenteral nutrition, contrast media, or after obtaining blood sample) use: Peripheral IV = 10 mL Midline or Central Line = 20 mL/lumen sterile water irrigation solution (CANCELED) As needed, Starting on Tue03/20/24 at 1418, Intraprocedure 1418 (Given - Provid er: Reinaldo Funes MD - Comment: ON THE BACK TABLE) Linked Groups Order Group 1: famotidine (Pepcid) tablet 20 mg (COMPLETED)Jump to med 20 mg, Oral, Once, On Tue03/20/24 at 1045, For 1 dose, Preprocedure, IV or Oral Or famotidine (Pepcid) 20 mg in sodium chloride (PF) 0.9 % 10 mL injection (COMPLETED) 20 mg, IntraVENous, Administer over 2 Minutes, Once, On Tue03/20/24 at 1045, For 1 dose, Preprocedure, IV or Oral Group 2: labetalol (Normodyne,Trandate) injection 5 mgJump to med 5 mg, IntraVENous, Every 10 min PRN, high blood pressure, for SBP greater than 160 mmHg for 2 consecutive measurements taken from different sites., Starting on Tue03/20/24 at 1723, For 2 doses, Recovery (only), PRN for SBP >160 for 2 consecutive measurements, if HR is 60 or greater. If beta ferny is contraindicated (HR less than 60, heart block, COPD or asthma) use hydralazine IV order. Or hydrALAZINE (Apresoline) injection 5 mgJump to med 5 mg, IntraVENous, Every 15 min PRN, high blood pressure, for SBP greater than 160 mmHg for 2 consecutive measurements taken from different sites, Starting on Tue03/20/24 at 1723, For 2 doses, Recovery (only), PRN for SBP > 160 for 2 consecutive measurements, and if one of the following conditions is met: 1) If IV labetolol is ineffective. 2) If HR is under 60. 3) If patient has heart block, COPD or asthma. If both labetalol and hydralazine ineffective, notify anesthesia provider. Group 3: oxyCODONE (Roxicodone) immediate release tablet 5 mg (COMPLETED)Jump to med 5 mg, Oral, PRN, moderate pain (4-6), Starting on Tue03/20/24 at 1723, For 1 dose, Recovery (only), PHASE II Or oxyCODONE (Roxicodone) immediate release tablet 10 mg (COMPLETED) 10 mg, Oral, PRN, severe pain (7-10), Starting on Tue03/20/24 at 1723, For 1 dose, Recovery (only), PHASE II INFORMATION SOURCE (unrecogn ized section and content) DATE CREATED AUTHOR 05/02/2024 [facility] DATE CREATED AUTHOR [facility]12[facility] FOR RECORDS PERTAINING TO PATIENTS WHO ARE OR HAVE BEEN ENROLLED IN A CHEMICAL DEPENDENCY/SUBSTANCEABUSE PROGRAM, SOME INFORMATION MAY BE OMITTED. This clinical summary was aggregated from multiple sources. Caution should be exercised in using it in the provision of clinical care. This summary normalizes information from multiple sources, and as a consequence, information in this document may materially change the coding, format and clinical context of patient data. In addition, data may be omitted in some cases. CLINICAL DECISIONS SHOULD BE BASED ON THE PRIMARY CLINICAL RECORDS. [employer] [facility]. provides no warranty or guarantee of the accuracy or completeness of information in this document.
[2025-01-24] MEDS: diazePAM 5 MG Tablet 2.5 MG PO (06:48)
[2025-01-24] MEDS: Morphine 4 MG/ML Syringe IV (06:48)
[2025-01-24] MEDS: Ondansetron 4 MG/2 ML Vial IV (06:48)
[2025-01-24 06:55] VITALS: BMI 36.8
--- NOTE | 2025-01-24 07:07 | EX.ED.DYSGE1 ---
HPI History of Present Illness Chief Complaint: Back Informant: patient and spouse/S.O. Narrative Narrative: Patient is a 64-year-old female with past medical history of hypertension depression and anxiety. She states on Tuesday she was stepping up on a small stepstool that she uses to get close out of the washer and dust a shelf above it when it broke and she fell landing on her buttocks/low back. She denies striking her head or any loss of consciousness. She states that she does not use blood thinners or have a history of bleeding disorder. She states that there has been no hematuria. She reports that she has had pain in her mid to low back and left side low back and difficulty ambulating since the fall. She states she has noticed her legs have become swollen as well. She states that as the pain is getting worse not better she has concern for underlying injury and therefore comes in for evaluation. [facility] Medical History Loss of hearing Wears glasses Post-menopausal Back pain Heartburn Non-smoker Leg cramps History of edema History of stress test Squamous cell carcinoma Basal cell carcinoma Melanoma Vitamin D deficiency Depression with anxiety Bone tumor Arthritis HTN (hypertension) Seasonal allergies Home Medications ?Medication ?Instructions ?Recorded ?Last Taken ?Type escitalopram oxalate 20 mg tablet 20 mg PO QHS 11/16/20 Unknown History lisinopril 40 mg tablet 40 mg PO QHS 10/31/23 Unknown History naproxen 500 mg tablet 500 mg PO BID PRN pain #20 tabs 01/03/24 Unknown Rx amlodipine 5 mg tablet 5 mg PO DAILY 10/23/24 Unknown History cholecalciferol (vitamin D3) 125 125 mcg PO DAILY 10/23/24 Unknown History mcg (5,000 unit) tablet (Vitamin D3) diazepam 5 mg tablet (Valium) 5 mg PO TID PRN muscle spasm 5 01/24/25 Unknown Rx days #15 tabs oxycodone-acetaminophen 5 mg-325 1 tab PO Q6H PRN pain 5 days #20 01/24/25 Unknown Rx mg tablet (Percocet) tabs Allergy/AdvReac Type Severity Reaction Status Date / Time bupropion AdvReac Mild OTHER Verified 01/24/25 06:07 Surgical History S/P D&C (status post dilation and curettage) H/O squamous cell carcinoma excision S/P laparotomy S/P tubal ligation Hx of melanoma excision Social History Smoking Status: Never smoker alcohol intake: never substance use type: does not use caffeine: Yes what type of physical activity do you participate in: none seatbelt use: always do you feel safe at home: Yes additional social history: - Gene ROS ROS ED Constitutional Constitutional ED: Denies chills or fever(s) Eyes Eyes: Denies blurry vision or change in vision ENT ENT ED: Denies sore throat Cardiovascular Cardiovascular: Denies chest pain Respiratory/Chest Respiratory/Chest: Denies cough or dyspnea Gastrointestinal Gastrointestinal: Denies abdominal pain, diarrhea, nausea or vomiting Genitourinary Genitourinary ED: Denies dysuria or hematuria Musculoskeletal Musculoskeletal: Reports back pain and other Details: Positive left hip pain Positive lower leg swelling bilaterally ; Denies neck pain Integumentary Denies rash Neurologic Neurologic: Denies headache(s) or paresthesias Hematologic/Lymphatic Hematologic/Lymphatic: Denies easy bleeding or easy bruising EXAM Physical Exam Const Vital Signs: 01/24/25 06:07 01/24/25 06:07 01/24/25 09:10 Temperature 98.4 F 98 F Temperature Source Oral Pulse Rate 76 80 Respiratory Rate 18 18 Blood Pressure 173/82 H 167/84 H 150/72 H Blood Pressure Mean 112 111 98 Pulse Ox 96 99 Positive well nourished, well developed and obese General Appearance ED: well developed Nutritional Appearance: obese HEENT HEENT Narrative: Normocephalic atraumatic No signs of depressed or basilar skull fracture Eyes PERRL and EOMs intact bilaterally Neck supple Neck Narrative: No bony deformity or step-off of the cervical spine no midline tenderness to palpation Chest Wall palpation of chest normal Chest Narrative: No bony deformity or subcutaneous emphysema noted No pain with palpation palpation Resp normal respiratory effort and clear to auscultation bilaterally Cardio regular rate and regular rhythm GI normal to inspection, nondistended, normoactive bowel sounds, non-tender, non-distended and no masses GI Narrative: No ecchymosis noted across the abdomen and no pain with palpation Auscultation: normoactive bowel sounds Palpation: soft Back/Spine Back/Spine Narrative: No bony deformity or step-off of the cervical thoracic or lumbar spine There is midline pain palpation of the lower lumbar region There is some and tension noted along the left paralumbar muscle belly region that worsens with extension and rotation No saddle anesthesia. Negative straight leg raise. No clonus or Babinski. Patellar reflexes are plus 1 out of 4 bilaterally Extremity Extremity Narrative: There is pain on palpation of the left hip near the greater trochanter and over top the left pubic rami However the pelvis is stable without shortening or external rotation of either lower extremity Patient does have +1-2 pitting edema to the bilateral lower extremities that are equal and symmetric Negative Homans' sign bilaterally Neuro oriented x3, CN's II-XII intact bilaterally and no sensory deficits noted Sensorium / Orientation: alert Psych mental status grossly normal Skin no rashes or lesions noted and no wounds Skin Narrative: No abrasions or ecchymosis noted to suggest underlying trauma/internal bleeding MDM MDM MDM Narrative Medical decision making narrative: Patient arrived to the ER hypertensive but has a past medical history of this and otherwise vitals are stable. She had a mechanical fall roughly 4 days ago and therefore there is no need for cardiac or syncope workup. She did not strike her head or have loss of consciousness she does not use blood thinners or have a history of bleeding disorder and therefore I feel no need for a head CT as I have low concern for traumatic subarachnoid or subdural hemorrhage. With pain in the low back there is concern for a compression fracture versus spinal thesis so a CT of the lumbar spine was obtained. With pain along the left hip there is concern for contusion versus potential fracture so x-rays of the left hip and pelvis were ordered. Secondary to the peripheral edema there is concern patient may have acute kidney injury or secondary CHF because of her hypertension so basic labs were obtained. proBNP is 114 going against CHF. Imaging studies revealed no signs of acute trauma. After receiving medication in the ER the patient reported feeling better. She is able to ambulate with a steady gait and therefore do not feel there is need for further workup as overall workup is negative for underlying trauma and she does not have signs of internal bleeding or CHF and therefore she is otherwise safe for discharge with symptomatic care. History & Record Review Discussion w/independent historian: Patient and Significant other Lab Data Attestation: I reviewed the patient's lab results. Labs: Laboratory Results - last 24 hr 01/24/25 06:54 WBC 7.5 RBC 4.53 Hgb 12.7 Hct 38.8 MCV 85.7 MCH 28.0 MCHC 32.7 RDW Std Deviation 41.1 RDW Coeff of Avinash 13.2 Plt Count 238 MPV 9.3 Immature Gran % (Auto) 0.400 Neut % (Auto) 68.0 Lymph % (Auto) 24.7 Dixon % (Auto) 5.8 Eos % (Auto) 0.7 Baso % (Auto) 0.4 Absolute Neuts (auto) 5.1 Absolute Lymphs (auto) 1.84 Nucleated RBC % 0 Sodium 140 Potassium 4.0 Chloride 105 Carbon Dioxide 23.1 Anion Gap 13 BUN 11 Creatinine 0.73 Estim Creat Clear Calc 85.05 Est GFR (MDRD) Non-Af 92 BUN/Creatinine Ratio 15.7 Glucose 142 H Calcium 9.8 NT pro BNP II 114 Radiography Diagnostic Testing: Clinical Impression(s) from Imaging Studies Lumbar Spine CT 01/24/25 06:37 IMPRESSION: 1. No evidence of acute injury. 2. Degenerative disc disease L4-5 and L5-S1. 3. Spondylosis with degenerative grade 1 anterolisthesis of L4 on L5 and degenerative retrolisthesis of L5 on S1. 4. Other findings as noted. Reading Location: [facility] Hip/Pelvis X-Ray 01/24/25 07:15 IMPRESSION: Significant degenerative changes are again seen of the visualized lower lumbar spine. The hip joints themselves show no significant abnormality. No evidence of femoral head osteonecrosis. No acute fracture or dislocation is seen. Reading Location: [address] X-ray of the left hip with 1 view pelvis as interpreted by the emergency medicine physician reveals osteoarthritic changes without acute fracture dislocation or joint effusion Discharge Plan Triage Chief Complaint: Back ED Provider: Martin Gavin Dx/Rx/DC Orders Clinical Impression: Lumbar contusion, Spasm of lumbar paraspinous muscle, Contusion of left hip, Accidental fall, HTN (hypertension), Depression with anxiety, Peripheral edema Instructions: Bone Contusion, ED Back Spasm, No Trauma Prescriptions: New diazepam [Valium] 5 mg tablet 5 mg PO TID PRN (Reason: muscle spasm) 5 Days Qty: 15 0RF oxycodone-acetaminophen [Percocet] 5-325 mg tablet 1 tab PO Q6H PRN (Reason: pain) 5 Days Qty: 20 0RF No Action escitalopram oxalate 20 mg tablet 20 mg PO QHS lisinopril 40 mg tablet 40 mg PO QHS naproxen 500 mg tablet 500 mg PO BID PRN (Reason: pain) Qty: 20 0RF amlodipine 5 mg tablet 5 mg PO DAILY cholecalciferol (vitamin D3) [Vitamin D3] 125 mcg (5,000 unit) tablet 125 mcg PO DAILY Primary Care Provider: Ladarius Flynn Referrals: Ladarius Flynn MD [Primary Care Provider] - Activity Restrictions/Additional Instructions: Your imaging showed no signs of fracture or dislocation indicating you have muscle and bone contusions. Take the prescribed medication as directed to help control symptoms and return to the ER should you have any further concerns Print Language: Georgian Disposition Disposition: Home, Self Care Discharge Date/Time: 01/24/25 09:11
[2025-01-24 07:13] LABS: Absolute Lymphocyte Count 1.84 X10^3/uL (0.83-4.51); Absolute Neutrophil Count 5.1 X10^3/uL (2.0-7.7); Basophil# 0.03 X10^3/uL; Basophil% 0.4 % (0-1); Eosinophil# 0.05 X10^3/uL; Eosinophils% 0.7 % (0-5); Hematocrit 38.8 % (37-47); Hemoglobin 12.7 g/dL (12.0-15.0); Lymphocyte # 1.84 X10^3/ul (0.83-4.51); Lymphocyte % 24.7 % (19-41); Mean Corp Hgb Conc 32.7 g/dL (32-36); Mean Corpuscular Volume 85.7 fL (81-99); Mean Platelet Vol. 9.3 fl (6.2-12.0); Monocyte# 0.43 X10^3/uL; Monocyte% 5.8 % (0-10); NRBC Flagged by Analyzer 0 % (0-5); Neutrophil # 5.07 X10^3/uL (2.7-7.7); Platelet Count 238 K/mm3 (150-450); RBC Distribution Width CV 13.2 % (11.6-14.6); RBC Distribution Width SD 41.1 fl (35.1-43.9); Red Blood Count 4.53 M/mm3 (4.2-5.4); White Blood Count 7.5 K/mm3 (4.4-11.0)
--- NOTE | 2025-01-24 07:15 | RAD_ITS ---
PROCEDURE: HIP, UNI W/ PELVIS 2-3 VIEWS 01/24/2025 REASON FOR EXAM: PAIN TECHNIQUE: Three-view left hip to include the AP pelvis. COMPARISON: Abdomen study of 11/01/2024. RAD/HIP, UNI W/ Pelvis 2-3 Views IMPRESSION: Significant degenerative changes are again seen of the visualized lower lumbar spine. The hip joints themselves show no significant abnormality. No evidence of femo ral head osteonecrosis. No acute fracture or dislocation is seen. Reading Location: [id number]
[2025-01-24 07:36] LABS: Anion Gap 13 (5-15); BUN 11 mg/dL (4-19); BUN/Creat Ratio 15.7 RATIO (10-20); Calcium,Total 9.8 mg/dL (7.6-11.0); Carbon Dioxide 23.1 mmol/L (21.0-32.0); Chloride 105 mmol/L (98-108); Creatinine, Serum 0.73 mg/dL (0.70-1.20); EST Glomerular Filtration Rate 92 (>60); Estimated Creatinine Clearance 85.05 ml/min (50-250); Glucose 142 mg/dL (70-99); Pro- Brain NATRIURETIC PEPTIDE 114 pg/mL (<=900); Sodium Level 140 mmol/L (133-145)
[2025-01-24 09:10] VITALS: BP 150/72; PULSE 80; RESP 18; TEMP 36.6; O2SAT 99
== END 2025-01-24 09:11 | disposition home or self-care (01) ==
PROVIDERS: Emergency Provider Emergency Medicine; PCP Family Medicine; Visit Provider Emergency Medicine
DX: S30.0XXA Contusion of lower back and pelvis, initial encounter (principal); M62.830 Muscle spasm of back; S70.02XA Contusion of left hip, initial encounter; I10 Essential (primary) hypertension; F41.9 Anxiety disorder, unspecified; F32.A Depression, unspecified; Z79.899 Other long term (current) drug therapy; W19.XXXA Unspecified fall, initial encounter
CPT/HCPCS: 72131; 73502; 80048; 83880; 85025; 96374; 96375; 99283; A4216; J2405